=== PATIENT | male | born 1970 | race American Indian/Alaskan Native ===

== ENCOUNTER 2018-05-04 10:57 | Inpatient (IN) | payer OTHER ==
[2018-05-04] MEDS ORDERED: NACL 0.9% 1000 ML 1,000 ML IV ONE ×2 (11:20→11:59)
[2018-05-04] MEDS ORDERED: PROTONIX IV ONE (11:59)
[2018-05-04] MEDS ORDERED: ZOFRAN IV ONE (11:59)
[2018-05-04] MEDS ORDERED: MORPHINE IV ONE (11:59)
[2018-05-04] MEDS ORDERED: ATIVAN IV ONE (11:59)
[2018-05-04 12:10] LABS: Basophils # (Auto) 0.1 K/mm3 (0.0-0.1); Basophils % (Auto) 0.9 % (0.0-1.8); Eosinophils # (Auto) 0.1 K/mm3 (0.0-0.4); Eosinophils % (Auto) 1.4 % (0.0-4.3); Hematocrit 46.7 % (35.5-45.6); Hemoglobin 15.5 gm/dl (11.8-15.2); Lymphocytes # (Auto) 1.4 K/mm3 (1.2-5.4); Lymphocytes % (Auto) 14.2 % (13.4-35.0); Mean Corpuscular HGB Conc 33 % (32-34); Mean Corpuscular Hemoglobin 30 pg (28-32); Mean Corpuscular Volume 89 fl (84-94); Monocytes # (Auto) 1.3 K/mm3 (0.0-0.8); Monocytes % (Auto) 12.4 % (0.0-7.3); Platelet Count 269 K/mm3 (140-440); Red Blood Count 5.24 M/mm3 (3.65-5.03); Red Cell Distribution Width 13.9 % (13.2-15.2)
[2018-05-04 12:21] LABS: INR 1.02 (0.87-1.13)
[2018-05-04 12:22] LABS: Partial Thromboplastin Time 29.9 Sec. (24.2-36.6)
[2018-05-04 12:24] LABS: Creatine Kinase MB 2.8 ng/mL (0.0-4.0)
[2018-05-04 12:26] LABS: Alanine Aminotransferase 15 units/L (7-56); Albumin 3.8 g/dL (3.9-5); BUN/Creatinine Ratio 16; Blood Urea Nitrogen 14 mg/dL (9-20); Calcium 9.8 mg/dL (8.4-10.2); Hemolysis Index 18; Lipase 13 units/L (13-60)
[2018-05-04 12:29] LABS: Bacteria,Urine 1+ /HPF (Negative); Bilirubin,Urine NEG (Negative); Blood,Urine NEG (Negative); Color,Urine Yellow (Yellow); Mucus,Urine 1+ /HPF; Protein,Urine <15 mg/dL mg/dL (Negative); Urobilinogen,Urine < 2.0 mg/dL (<2.0)
[2018-05-04 12:43] LABS: Amphetamine Screen,Urine PRESUMPTIVE NEGATIVE; Benzodiazepines Screen,Urine PRESUMPTIVE NEGATIVE; Cocaine Screen,Urine PRESUMPTIVE NEGATIVE; Methadone Screen,Urine PRESUMPTIVE NEGATIVE; Opiate Screen,Urine PRESUMPTIVE NEGATIVE
--- NOTE | 2018-05-04 12:48 | XRay Report ---
PORTABLE CHEST INDICATION: Chest pain. COMPARISON: None similar. FINDINGS: Portable, frontal chest radiograph demonstrates normal cardiomediastinal silhouette. Mild prominence/increased interstitial markings through both lungs. Minimal fluid or thickening along the right minor fissure. No large pleural effusions however. Intact bones. CONCLUSION: Diffuse increased interstitial markings/pneumonia may represent chronic interstitial lung disease in an appropriate setting, though other possibilities as congestion/edema not entirely excluded on this exam alone. Please also correlate clinically and with prior relevant imaging, if available. Thank you for the opportunity to participate in this patient's care.
[2018-05-04 13:02] LABS: Cannabinoid Screen,Urine PRESUMPTIVE POSITIVE
--- NOTE | 2018-05-04 13:36 | Emergency Department Report ---
ED General Adult HPI - General Chief complaint: Pain General Stated complaint: CP/ABD/BACK/HEAD PAIN Time Seen by Provider: 05/04/18 11:39 Source: patient Mode of arrival: Ambulatory Limitations: No Limitations - History of Present Illness Initial comments: 48-year-old malepPatient complains of intermittent chest pain which radiates to the back and abdomen for the past 2 days. The pain is nonpleuritic and nonexertional. The patient states that he has never had a prior workup for chest pain. He has had a previous CT of his abdomen in 2014 which was unremarkable at this facility. He does not complain of cough. He's had no recent traveling. He isn't and frequent utilizer of medical resources. He states that there is a history of blood clots in his family but not apparently premature coronary artery disease. He denies cocaine use. He does smoke. He described the pain as severe and is somewhat anxious. -: Gradual, days(s) Location: chest Radiation: back, abdomen Severity scale (0 -10): 10 Quality: aching (could not describe) Consistency: intermittent Improves with: none Worsens with: none Associated Symptoms: denies other symptoms Treatments Prior to Arrival: none - Related Data Previous Rx's Medication Instructions Recorded Last Taken Type Amoxicillin [Trimox CAP] 500 mg PO Q8H #30 capsule 04/24/15 Unknown Rx HYDROcodone/APAP 10-325 [[place] 1 each PO Q4-6H PRN #16 tablet 04/24/15 Unknown Rx 10/325] Promethazine [Phenergan] 25 mg PO Q6H PRN #10 tablet 04/24/15 Unknown Rx Butalb/Acetamin/Caff 50-325-40 1 tab PO Q6HR PRN #15 tab 05/21/16 Unknown Rx [Fioricet] LORazepam [Ativan] 1 mg PO BID PRN #10 tab 05/21/16 Unknown Rx Allergies Allergy/AdvReac Type Severity Reaction Status Date / Time ibuprofen Allergy Vomiting Verified 04/24/15 10:14 ED Review of Systems ROS: Stated complaint: CP/ABD/BACK/HEAD PAIN Other details as noted in HPI Constitutional: denies: chills, fever Eyes: denies: eye pain, eye discharge, vision change ENT: denies: ear pain, throat pain Respiratory: denies: cough, shortness of breath, wheezing Cardiovascular: as per HPI, chest pain. denies: palpitations Endocrine: no symptoms reported Gastrointestinal: as per HPI, abdominal pain. denies: nausea, diarrhea Genitourinary: denies: urgency, dysuria Musculoskeletal: denies: back pain, joint swelling, arthralgia Skin: denies: rash, lesions Neurological: denies: headache, weakness, paresthesias Psychiatric: denies: anxiety, depression Hematological/Lymphatic: denies: easy bleeding, easy bruising ED Past Medical Hx - Past Medical History Previous Medical History?: Yes Additional medical history: stomach ulcers - Surgical History Past Surgical History?: Yes Additional Surgical History: Operative procedure for bleeding ulcer - Social History Smoking Status: Current Every Day Smoker Substance Use Type: Marijuana - Medications Home Medications: Home Medications Medication Instructions Recorded Confirmed Last Taken Type Amoxicillin [Trimox CAP] 500 mg PO Q8H #30 capsule 04/24/15 Unknown Rx HYDROcodone/APAP 10-325 [[place] 1 each PO Q4-6H PRN #16 tablet 04/24/15 Unknown Rx 10/325] Promethazine [Phenergan] 25 mg PO Q6H PRN #10 tablet 04/24/15 Unknown Rx Butalb/Acetamin/Caff 50-325-40 1 tab PO Q6HR PRN #15 tab 05/21/16 Unknown Rx [Fioricet] LORazepam [Ativan] 1 mg PO BID PRN #10 tab 05/21/16 Unknown Rx ED Physical Exam - General Limitations: No Limitations General appearance: alert, anxious - Head Head exam: Present: atraumatic, normocephalic - Eye Eye exam: Present: normal appearance. Absent: scleral icterus - ENT ENT exam: Present: mucous membranes moist - Neck Neck exam: Present: normal inspection. Absent: tenderness, meningismus - Respiratory Respiratory exam: Present: normal lung sounds bilaterally. Absent: respiratory distress - Cardiovascular Cardiovascular Exam: Present: regular rate, normal rhythm. Absent: systolic murmur, diastolic murmur, rubs, gallop - GI/Abdominal GI/Abdominal exam: Present: soft, normal bowel sounds, other (above the umbilicus celiotomy scar). Absent: distended, tenderness, guarding, rebound, rigid - Rectal Rectal exam: Present: deferred - Extremities Exam Extremities exam: Present: normal inspection - Back Exam Back exam: Present: normal inspection - Neurological Exam Neurological exam: Present: alert, oriented X3, CN II-XII intact. Absent: motor sensory deficit - Psychiatric Psychiatric exam: Present: normal affect, anxious - Skin Skin exam: Present: warm, dry, intact, normal color. Absent: rash ED Course Vital Signs 05/04/18 11:16 Temperature 97.5 F L Pulse Rate 58 L Respiratory 22 Rate Blood Pressure 135/88 O2 Sat by Pulse 97 Oximetry - Reevaluation(s) Reevaluation #1: Patient was given analgesia and [place] lytic. He was noted to have very elevated d-dimer. I asked the radiologist to look at his angiogram right away. Dr. Banks reported to me that the patient has diffuse adenopathy mediastinum and abdomen probably more consistent with lymphoma and sarcoid but the differential diagnosis included both. There is no dissection. Interstitial lung disease is present on chest x-ray as well. 05/04/18 13:59 ED Medical Decision Making - Lab Data Result diagrams: 05/04/18 11:31 05/04/18 11:31 Laboratory Results - last 24 hr 05/04/18 05/04/18 05/04/18 11:31 11:31 11:31 WBC 10.1 RBC 5.24 H Hgb 15.5 H Hct 46.7 H MCV 89 MCH 30 MCHC 33 RDW 13.9 Plt Count 269 Lymph % (Auto) 14.2 [place] % (Auto) 12.4 H Eos % (Auto) 1.4 Baso % (Auto) 0.9 Lymph # 1.4 [place] # 1.3 H Eos # 0.1 Baso # 0.1 Seg Neutrophils % 71.1 H Seg Neutrophils # 7.2 PT 13.9 INR 1.02 APTT 29.9 D-Dimer 5221.96 H Sodium 140 Potassium 4.0 Chloride 100.4 Carbon Dioxide 24 Anion Gap 20 BUN 14 Creatinine 0.9 Estimated GFR > 60 BUN/Creatinine Ratio 16 Glucose 101 H Calcium 9.8 Magnesium Total Bilirubin 0.40 AST 22 ALT 15 Alkaline Phosphatase 128 Total Creatine Kinase CK-MB (CK-2) CK-MB (CK-2) Rel Index Troponin T NT-Pro-B Natriuret Pep Total Protein 8.1 Albumin 3.8 L Albumin/Globulin Ratio 0.9 Lipase 13 Urine Color Urine Turbidity Urine pH Ur Specific [place] Urine Protein Urine Glucose (UA) Urine Ketones Urine Blood Urine Nitrite Urine Bilirubin Urine Urobilinogen Ur Leukocyte Esterase Urine WBC (Auto) Urine RBC (Auto) U Epithel Cells (Auto) Urine Bacteria (Auto) Urine Mucus Urine Opiates Screen Urine Methadone Screen Ur Barbiturates Screen Ur Phencyclidine Scrn Ur Amphetamines Screen U Benzodiazepines Scrn Urine Cocaine Screen U Marijuana (THC) Screen Drugs of Abuse Note Blood Type Antibody Screen 05/04/18 05/04/18 05/04/18 11:31 11:31 11:31 WBC RBC Hgb Hct MCV MCH MCHC RDW Plt Count Lymph % (Auto) [place] % (Auto) Eos % (Auto) Baso % (Auto) Lymph # [place] # Eos # Baso # Seg Neutrophils % Seg Neutrophils # PT INR APTT D-Dimer Sodium Potassium Chloride Carbon Dioxide Anion Gap BUN Creatinine Estimated GFR BUN/Creatinine Ratio Glucose Calcium Magnesium 2.20 Total Bilirubin AST ALT Alkaline Phosphatase Total Creatine Kinase 375 H CK-MB (CK-2) 2.8 CK-MB (CK-2) Rel Index 0.7 Troponin T < 0.010 NT-Pro-B Natriuret Pep 84.11 Total Protein Albumin Albumin/Globulin Ratio Lipase Urine Color Urine Turbidity Urine pH Ur Specific [place] Urine Protein Urine Glucose (UA) Urine Ketones Urine Blood Urine Nitrite Urine Bilirubin Urine Urobilinogen Ur Leukocyte Esterase Urine WBC (Auto) Urine RBC (Auto) U Epithel Cells (Auto) Urine Bacteria (Auto) Urine Mucus Urine Opiates Screen Urine Methadone Screen Ur Barbiturates Screen Ur Phencyclidine Scrn Ur Amphetamines Screen U Benzodiazepines Scrn Urine Cocaine Screen U Marijuana (THC) Screen Drugs of Abuse Note Blood Type O POSITIVE Antibody Screen Negative 05/04/18 05/04/18 Unknown Unknown WBC RBC Hgb Hct MCV MCH MCHC RDW Plt Count Lymph % (Auto) [place] % (Auto) Eos % (Auto) Baso % (Auto) Lymph # [place] # Eos # Baso # Seg Neutrophils % Seg Neutrophils # PT INR APTT D-Dimer Sodium Potassium Chloride Carbon Dioxide Anion Gap BUN Creatinine Estimated GFR BUN/Creatinine Ratio Glucose Calcium Magnesium Total Bilirubin AST ALT Alkaline Phosphatase Total Creatine Kinase CK-MB (CK-2) CK-MB (CK-2) Rel Index Troponin T NT-Pro-B Natriuret Pep Total Protein Albumin Albumin/Globulin Ratio Lipase Urine Color Yellow Urine Turbidity Clear Urine pH 5.0 Ur Specific [place] 1.026 Urine Protein <15 mg/dl Urine Glucose (UA) Neg Urine Ketones Tr Urine Blood Neg Urine Nitrite Neg Urine Bilirubin Neg Urine Urobilinogen < 2.0 Ur Leukocyte Esterase Neg Urine WBC (Auto) 3.0 Urine RBC (Auto) 3.0 U Epithel Cells (Auto) < 1.0 Urine Bacteria (Auto) 1+ Urine Mucus 1+ Urine Opiates Screen Presumptive negative Urine Methadone Screen Presumptive negative Ur Barbiturates Screen Presumptive negative Ur Phencyclidine Scrn Presumptive negative Ur Amphetamines Screen Presumptive negative U Benzodiazepines Scrn Presumptive negative Urine Cocaine Screen Presumptive negative U Marijuana (THC) Screen Presumptive positive Drugs of Abuse Note Disclamer Blood Type Antibody Screen Critical care attestation.: If time is entered above; I have spent that time in minutes in the direct care of this critically ill patient, excluding procedure time. ED Disposition Clinical Impression: Elevated d-dimer, Interstitial lung disease, Mediastinal lymphadenopathy, Intra -abdominal lymphadenopathy Chest pain Qualifiers: Chest pain type: unspecified Qualified Code(s): R07.9 - Chest pain, unspecified Abdominal pain Qualifiers: Abdominal location: unspecified location Qualified Code(s): R10.9 - Unspecified abdominal pain Disposition: OP ADMIT IP TO THIS HOSP Is pt being admited?: Yes Does the pt Need Aspirin: Yes Condition: Stable Instructions: Chest Pain (ED) Referrals: PRIMARY CAREMD [Primary Care Provider] - 3-5 Days Time of Disposition: 14:02
--- NOTE | 2018-05-04 14:18 | Cat Scan Report ---
CTA CHEST CTA ABDOMEN AND PELVIS WITH CONTRAST INDICATION: Chest pain radiating to back and abdomen. COMPARISON: 04/24/[address] FINDINGS: Chest, abdomen and pelvis CTA performed following IV contrast. Axial, sagittal, coronal and MIP reconstructions obtained. CHEST: Normal heart size. No pericardial effusion. Unremarkable great vessels, to the extent assessed. However, hilar lymphadenopathy noted measuring approximately 2 cm on either side as on axial images 55 and 72, series 2. Approximately 2.8 x 1.5 cm subcarinal lymph node also seen. A 1.9 x 1 cm AP window lymph node also noted, axial image 44. No size significant axillary lymphadenopathy. Patent central airway. Normal thyroid. Diffuse bilateral interstitial prominence suggestive of mild congestion. Bibasilar dependent atelectasis. Trace pleural effusions, more so on the left. Slight nonspecific distal esophageal prominence/thickening. ABDOMEN: No aortic dissection with patent SMA, MORIAH and bilateral renal arteries. Severe, approximately 80-90% stenosis of approximately 1 cm celiac length from its aortic origin suspected as on sagittal image 84, series 303, achieving a normal caliber further distally. Liver, spleen, gallbladder, pancreas, IVC and kidneys within normal limits. Slight diffuse bilateral adrenal gland prominence/hyperplasia not excluded. Nonopacified GI tract evaluation limited, though grossly nonobstructive. Cecum low lying in the pelvis, slightly dilated with fluid and approximately 3.5 cm in caliber, axial image 246, series 2. Proximal to mid ascending colon however in the right lower quadrant, axial images 180-115, series 2 though suggests diffuse soft tissue prominence/thickening/possible mass. Multiple enlarged adjacent lymph nodes measuring up to 1.8 x 1.4 cm also noted medial to it as on axial image 193, series 2. Stool however noted further beyond this segment along the colon. Few retroperitoneal lymph nodes also seen as measuring 1.5 cm retrocaval, axial image 163 as also 1.6 x 0.9 cm left paraaortic on axial image 169, amongst others. No ascites. PELVIS: A suboptimally distended urinary bladder, prostate, seminal vesicles and the rectosigmoid grossly within normal limits. No significant free fluid or adenopathy suspected. L5-S1 disc narrowing and mild degenerative spurring noted. L4-L5 disc bulge again seen. Mild lower cervical spine degenerative spurring as well. CONCLUSION: 1. Intrathoracic and abdominal/retroperitoneal lymphadenopathy noted in this patient with mild interstitial edema, trace left pleural effusion and a possible ascending colon mass, as described above. Lymphoma remains a primary consideration in this setting, amongst others as sarcoidosis that may mimic many of the above findings. Please correlate. 2. No aortic dissection. Proximal celiac axis high-grade stenosis though suspected. 3. Few other findings, as above. Thank you for the opportunity to participate in this patient's care.
[2018-05-04] MEDS: MORPHINE IV PRN (17:25)
--- NOTE | 2018-05-04 17:47 | History and Physical Report ---
History of Present Illness Date of examination: 05/04/18 Date of admission: 05/04/18 14:03 Chief complaint: Chief complaint: Left-sided chest pain for 1 day--intermittent in nature History of present illness: History of Present Illness: 48-year-old -[place] male presents with chest pain radiating to the back for past 2 days. Patient also has intermittent abdominal pain. Chest pain associated with slight diaphoresis. No palpitations no shortness of breath. No recent travel. Patient had a CT of the abdomen in 2014 which was unremarkable. No recent travel. No shortness of breath on exertion. No fever no chills. No weight loss. Past Medical History: Previous Medical History?: Yes Additional medical history: stomach ulcers Surgical History Past Surgical History?: Yes Additional Surgical History: Operative procedure for bleeding ulcer Social History Smoking Status: Current Every Day Smoker Substance Use Type: Marijuana Family history Htn Medications Home Medications: Home Medications Medication Instructions Recorded Confirmed Last Taken Type Amoxicillin [Trimox CAP] 500 mg PO Q8H #30 capsule 04/24/15 Unknown Rx HYDROcodone/APAP 10-325 [[place] 1 each PO Q4-6H PRN #16 tablet 04/24/15 Unknown Rx 10/325] Promethazine [Phenergan] 25 mg PO Q6H PRN #10 tablet 04/24/15 Unknown Rx Butalb/Acetamin/Caff 50-325-40 1 tab PO Q6HR PRN #15 tab 05/21/16 Unknown Rx [Fioricet] LORazepam [Ativan] 1 mg PO BID PRN #10 tab 05/21/16 Unknown Rx Review of Systems ROS: Stated complaint: CP/ABD/BACK/HEAD PAIN Other details as noted in HPI Constitutional: denies: chills, fever Eyes: denies: eye pain, eye discharge, vision change ENT: denies: ear pain, throat pain Respiratory: denies: cough, shortness of breath, wheezing Cardiovascular: as per HPI, chest pain. denies: palpitations Endocrine: no symptoms reported Gastrointestinal: as per HPI, abdominal pain. denies: nausea, diarrhea Genitourinary: denies: urgency, dysuria Musculoskeletal: denies: back pain, joint swelling, arthralgia Skin: denies: rash, lesions Neurological: denies: headache, weakness, paresthesias Psychiatric: denies: anxiety, depression Hematological/Lymphatic: denies: easy bleeding, easy bruising Medications and Allergies Allergies Allergy/AdvReac Type Severity Reaction Status Date / Time ibuprofen Allergy Vomiting Verified 04/24/15 10:14 Home Medications Medication Instructions Recorded Confirmed Last Taken Type No Known Home Medications [No 05/04/18 05/04/18 Unknown History Reported Home Medications] Active Meds: Active Medications Sodium Chloride (Nacl 0.9% 1000 Ml) 1,000 mls @ 125 mls/hr IV ONCE ONE Stop: 05/04/18 19:58 Last Admin: 05/04/18 12:24 Dose: 125 mls/hr Morphine Sulfate (Morphine) 2 mg IV Q3H PRN PRN Reason: Pain Last Admin: 05/04/18 17:25 Dose: 2 mg Exam - Constitutional Vitals: Temp Pulse Resp BP Pulse Ox 97.5 F L 103 H 20 109/79 96 05/04/18 11:16 05/04/18 17:00 05/04/18 17:00 05/04/18 17:00 05/04/18 16:52 General appearance: Present: no acute distress, well-nourished - EENT Eyes: Present: PERRL ENT: hearing intact, clear oral mucosa - Neck Neck: Present: supple, normal ROM - Respiratory Respiratory effort: normal Respiratory: bilateral: CTA - Cardiovascular Heart rate: 76 Rhythm: regular Heart Sounds: Present: S1 & S2. Absent: rub, click - Extremities Extremities: pulses symmetrical, No edema Peripheral Pulses: within normal limits - Abdominal General gastrointestinal: Present: soft, non-tender, non-distended, normal bowel sounds Male genitourinary: Present: normal - Integumentary Integumentary: Present: clear, warm, dry - Musculoskeletal Musculoskeletal: gait normal, strength equal bilaterally - Psychiatric Psychiatric: appropriate mood/affect, intact judgment & insight - Neurologic Neurologic: CNII-XII intact, moves all extremities - Allied Health Allied health notes reviewed: nursing, case management Results - Labs CBC & Chem 7: 05/04/18 11:31 05/04/18 11:31 Labs: Laboratory Last Values WBC 10.1 K/mm3 (4.5-11.0) 05/04/18 11:31 RBC 5.24 M/mm3 (3.65-5.03) H 05/04/18 11:31 Hgb 15.5 gm/dl (11.8-15.2) H 05/04/18 11:31 Hct 46.7 % (35.5-45.6) H 05/04/18 11:31 MCV 89 fl (84-94) 05/04/18 11:31 MCH 30 pg (28-32) 05/04/18 11:31 MCHC 33 % (32-34) 05/04/18 11:31 RDW 13.9 % (13.2-15.2) 05/04/18 11:31 Plt Count 269 K/mm3 (140-440) 05/04/18 11:31 Lymph % (Auto) 14.2 % (13.4-35.0) 05/04/18 11:31 [place] % (Auto) 12.4 % (0.0-7.3) H 05/04/18 11:31 Eos % (Auto) 1.4 % (0.0-4.3) 05/04/18 11:31 Baso % (Auto) 0.9 % (0.0-1.8) 05/04/18 11:31 Lymph # 1.4 K/mm3 (1.2-5.4) 05/04/18 11:31 [place] # 1.3 K/mm3 (0.0-0.8) H 05/04/18 11:31 Eos # 0.1 K/mm3 (0.0-0.4) 05/04/18 11:31 Baso # 0.1 K/mm3 (0.0-0.1) 05/04/18 11:31 Seg Neutrophils % 71.1 % (40.0-70.0) H 05/04/18 11:31 Seg Neutrophils # 7.2 K/mm3 (1.8-7.7) 05/04/18 11:31 PT 13.9 Sec. (12.2-14.9) 05/04/18 11:31 INR 1.02 (0.87-1.13) 05/04/18 11:31 APTT 29.9 Sec. (24.2-36.6) 05/04/18 11:31 D-Dimer 5221.96 ng/mlDDU (0-234) H 05/04/18 11:31 Sodium 140 mmol/L (137-145) 05/04/18 11:31 Potassium 4.0 mmol/L (3.6-5.0) 05/04/18 11:31 Chloride 100.4 mmol/L (98-107) 05/04/18 11:31 Carbon Dioxide 24 mmol/L (22-30) 05/04/18 11:31 Anion Gap 20 mmol/L 05/04/18 11:31 BUN 14 mg/dL (9-20) 05/04/18 11:31 Creatinine 0.9 mg/dL (0.8-1.5) 05/04/18 11:31 Estimated GFR > 60 ml/min 05/04/18 11:31 BUN/Creatinine Ratio 16 % 05/04/18 11:31 Glucose 101 mg/dL (75-100) H 05/04/18 11:31 Calcium 9.8 mg/dL (8.4-10.2) 05/04/18 11:31 Magnesium 2.20 mg/dL (1.7-2.3) 05/04/18 11:31 Total Bilirubin 0.40 mg/dL (0.1-1.2) 05/04/18 11:31 AST 22 units/L (5-40) 05/04/18 11:31 ALT 15 units/L (7-56) 05/04/18 11:31 Alkaline Phosphatase 128 units/L (35-129) 05/04/18 11:31 Total Creatine Kinase 375 units/L (55-170) H 05/04/18 11:31 CK-MB (CK-2) 2.8 ng/mL (0.0-4.0) 05/04/18 11:31 CK-MB (CK-2) Rel Index 0.7 (0-4) 05/04/18 11:31 Troponin T < 0.010 ng/mL (0.00-0.029) 05/04/18 11:31 NT-Pro-B Natriuret Pep 84.11 pg/mL (0-450) 05/04/18 11:31 Total Protein 8.1 g/dL (6.3-8.2) 05/04/18 11:31 Albumin 3.8 g/dL (3.9-5) L 05/04/18 11:31 Albumin/Globulin Ratio 0.9 % 05/04/18 11:31 Lipase 13 units/L (13-60) 05/04/18 11:31 Urine Color Yellow (Yellow) 05/04/18 Unknown Urine Turbidity Clear (Clear) 05/04/18 Unknown Urine pH 5.0 (5.0-7.0) 05/04/18 Unknown Ur Specific [place] 1.026 (1.003-1.030) 05/04/18 Unknown Urine Protein <15 mg/dl mg/dL (Negative) 05/04/18 Unknown Urine Glucose (UA) Neg mg/dL (Negative) 05/04/18 Unknown Urine Ketones Tr mg/dL (Negative) 05/04/18 Unknown Urine Blood Neg (Negative) 05/04/18 Unknown Urine Nitrite Neg (Negative) 05/04/18 Unknown Urine Bilirubin Neg (Negative) 05/04/18 Unknown Urine Urobilinogen < 2.0 mg/dL (<2.0) 05/04/18 Unknown Ur Leukocyte Esterase Neg (Negative) 05/04/18 Unknown Urine WBC (Auto) 3.0 /HPF (0.0-6.0) 05/04/18 Unknown Urine RBC (Auto) 3.0 /HPF (0.0-6.0) 05/04/18 Unknown U Epithel Cells (Auto) < 1.0 /HPF (0-13.0) 05/04/18 Unknown Urine Bacteria (Auto) 1+ /HPF (Negative) 05/04/18 Unknown Urine Mucus 1+ /HPF 05/04/18 Unknown Urine Opiates Screen Presumptive negative 05/04/18 Unknown Urine Methadone Screen Presumptive negative 05/04/18 Unknown Ur Barbiturates Screen Presumptive negative 05/04/18 Unknown Ur Phencyclidine Scrn Presumptive negative 05/04/18 Unknown Ur Amphetamines Screen Presumptive negative 05/04/18 Unknown U Benzodiazepines Scrn Presumptive negative 05/04/18 Unknown Urine Cocaine Screen Presumptive negative 05/04/18 Unknown U Marijuana (THC) Screen Presumptive positive 05/04/18 Unknown Drugs of Abuse Note Disclamer 05/04/18 Unknown Blood Type O POSITIVE 05/04/18 11:31 Antibody Screen Negative 05/04/18 11:31 - Imaging and Cardiology EKG: report reviewed (Sinus arrhythmia left atrial enlargement and left ventricular enlargement ST elevation secondary to repolarization heart rate of 82.) CT scan - abdomen: report reviewed Imaging and Cardiology: CT abdomen from 04/24/[address] abdomen and pelvis on 05/04/2018 CONCLUSION: 1. Intrathoracic and abdominal/retroperitoneal lymphadenopathy noted in this patient with mild interstitial edema, trace left pleural effusion and a possible ascending colon mass, as described above. Lymphoma remains a primary consideration in this setting, amongst others as sarcoidosis that may mimic many of the above findings. Please correlate. 2. No aortic dissection. Proximal celiac axis high-grade stenosis though suspected. 3. Few other findings, as above. Thank you for the opportunity to participate in this patient's care. CTA chest Similar findings as above Chest x-ray CONCLUSION: Diffuse increased interstitial markings/pneumonia may represent chronic interstitial lung disease in an appropriate setting, though other possibilities as congestion/edema not entirely excluded on this exam alone. Please also correlate clinically and with prior relevant imaging, if available. Assessment and Plan Advance Directives: Yes (full code) VTE prophylaxis?: Chemical Plan of care discussed with patient/family: Yes - Patient Problems (1) Lymphoma Current Visit: Yes Status: Acute Qualifiers: Lymphoma type: unspecified type Plan to address problem: Highly likely. He may need CT-guided biopsy Oncology consult requested Sarcoidosis in the differential Angiotensin-converting enzyme levels ordered (2) Chest pain Current Visit: Yes Status: Acute Qualifiers: Chest pain type: unspecified Qualified Code(s): R07.9 - Chest pain, unspecified Plan to address problem: Lexiscan in the morning Serial cardiac enzymes (3) T2DM (type 2 diabetes mellitus) Current Visit: Yes Status: Chronic Plan to address problem: borderline No coverage at this point A1c 6.1 (4) DVT prophylaxis Current Visit: Yes Status: Acute Plan to address problem: Heparin 5000 units subcutaneous every 12
[2018-05-04] MEDS ORDERED: NACL 0.9% 1000 ML 1,000 ML IV SCH (18:00)
[2018-05-04] MEDS: DILAUDID IV PRN ×2 (19:49→23:44)
[2018-05-04] MEDS: SODIUM CHLORIDE FLUSH SYRINGE 10 ML IV SCH (23:44)
[2018-05-04] MEDS: LEVAQUIN 750MG/150ML 750 MG/150 ML BAG IV SCH (23:46)
[2018-05-05] MEDS: DILAUDID IV PRN ×6 (04:23→23:23)
[2018-05-05 07:08] LABS: Hematocrit 41.4 % (35.5-45.6); Hemoglobin 13.5 gm/dl (11.8-15.2); Mean Corpuscular HGB Conc 33 % (32-34); Mean Corpuscular Hemoglobin 29 pg (28-32); Mean Corpuscular Volume 89 fl (84-94); Platelet Count 233 K/mm3 (140-440); Red Blood Count 4.63 M/mm3 (3.65-5.03); Red Cell Distribution Width 13.9 % (13.2-15.2)
[2018-05-05 07:16] LABS: Alanine Aminotransferase 11 units/L (7-56); Albumin 3.2 g/dL (3.9-5); BUN/Creatinine Ratio 13; Blood Urea Nitrogen 12 mg/dL (9-20); Hemolysis Index 7
[2018-05-05 08:37] LABS: Basophils % (Manual) 0 % (0.0-1.8); RBC Morphology Normal; Total Cells Counted 100
[2018-05-05 08:38] LABS: Platelet Estimate Consistent w Auto
--- NOTE | 2018-05-05 08:57 | Progress Note ---
Assessment and Plan Assessment and plan: Abdominal Lymphadenopathy. To r/o lymphoma. Oncology consulted Colon mass. GI consulted. For colonoscopy tomorrow. History of gastric ulcer DVT prophylaxis with SCDs only. Full code status History Interval history: Chest pain Abdominal pain Hospitalist Physical - Physical exam Narrative exam: General: Not in acute distress, lying in bed,obese HEENT:Normocephalic, atraumatic Neck:supple,no JVD Lungs: Clear to auscultation bilaterally, no crackles, no wheeze Heart:S1 and S2 regular, no murmurs, rubs or gallop Abd: soft, tender, non distended, normal bowel sounds Ext: No edema, no clubbing, no cyanosis Neuro: AAO x 3, moves all extremities. - Constitutional Vitals: Temp Pulse Resp BP Pulse Ox 99.0 F 115 H 20 136/88 94 05/04/18 23:39 05/04/18 23:39 05/05/18 04:23 05/04/18 23:39 05/04/18 23:39 General appearance: Present: no acute distress, well-nourished Results - Labs CBC & Chem 7: 05/05/18 06:32 05/05/18 06:32 Labs: Laboratory Last Values WBC 7.9 K/mm3 (4.5-11.0) 05/05/18 06:32 RBC 4.63 M/mm3 (3.65-5.03) 05/05/18 06:32 Hgb 13.5 gm/dl (11.8-15.2) 05/05/18 06:32 Hct 41.4 % (35.5-45.6) 05/05/18 06:32 MCV 89 fl (84-94) 05/05/18 06:32 MCH 29 pg (28-32) 05/05/18 06:32 MCHC 33 % (32-34) 05/05/18 06:32 RDW 13.9 % (13.2-15.2) 05/05/18 06:32 Plt Count 233 K/mm3 (140-440) 05/05/18 06:32 Lymph % (Auto) 14.2 % (13.4-35.0) 05/04/18 11:31 Elliott % (Auto) [employer] Manager 05/05/18 06:32 Eos % (Auto) 1.4 % (0.0-4.3) 05/04/18 11:31 Baso % (Auto) 0.9 % (0.0-1.8) 05/04/18 11:31 Lymph # 1.4 K/mm3 (1.2-5.4) 05/04/18 11:31 Elliott # 1.3 K/mm3 (0.0-0.8) H 05/04/18 11:31 Eos # 0.1 K/mm3 (0.0-0.4) 05/04/18 11:31 Baso # 0.1 K/mm3 (0.0-0.1) 05/04/18 11:31 Add Manual Diff Complete 05/05/18 06:32 Total Counted 100 05/05/18 06:32 Seg Neutrophils % 71.1 % (40.0-70.0) H 05/04/18 11:31 Seg Neuts % (Manual) 66.0 % (40.0-70.0) 05/05/18 06:32 Band Neutrophils % 0 % 05/05/18 06:32 Lymphocytes % (Manual) 15.0 % (13.4-35.0) 05/05/18 06:32 Reactive Lymphs % (Man) 0 % 05/05/18 06:32 Monocytes % (Manual) 17.0 % (0.0-7.3) H 05/05/18 06:32 Eosinophils % (Manual) 2.0 % (0.0-4.3) 05/05/18 06:32 Basophils % (Manual) 0 % (0.0-1.8) 05/05/18 06:32 Metamyelocytes % 0 % 05/05/18 06:32 Myelocytes % 0 % 05/05/18 06:32 Promyelocytes % 0 % 05/05/18 06:32 Blast Cells % 0 % 05/05/18 06:32 Nucleated RBC % Not Reportable 05/05/18 06:32 Seg Neutrophils # 7.2 K/mm3 (1.8-7.7) 05/04/18 11:31 Seg Neutrophils # Man 5.2 K/mm3 (1.8-7.7) 05/05/18 06:32 Band Neutrophils # 0.0 K/mm3 05/05/18 06:32 Lymphocytes # (Manual) 1.2 K/mm3 (1.2-5.4) 05/05/18 06:32 Abs React Lymphs (Man) 0.0 K/mm3 05/05/18 06:32 Monocytes # (Manual) 1.3 K/mm3 (0.0-0.8) H 05/05/18 06:32 Eosinophils # (Manual) 0.2 K/mm3 (0.0-0.4) 05/05/18 06:32 Basophils # (Manual) 0.0 K/mm3 (0.0-0.1) 05/05/18 06:32 Metamyelocytes # 0.0 K/mm3 05/05/18 06:32 Myelocytes # 0.0 K/mm3 05/05/18 06:32 Promyelocytes # 0.0 K/mm3 05/05/18 06:32 Blast Cells # 0.0 K/mm3 05/05/18 06:32 WBC Morphology Not Reportable 05/05/18 06:32 Hypersegmented Neuts Not Reportable 05/05/18 06:32 Hyposegmented Neuts Not Reportable 05/05/18 06:32 Hypogranular Neuts Not Reportable 05/05/18 06:32 Smudge Cells Not Reportable 05/05/18 06:32 Toxic Granulation Not Reportable 05/05/18 06:32 Toxic Vacuolation Not Reportable 05/05/18 06:32 Dohle Bodies Not Reportable 05/05/18 06:32 Pelger-Huet Anomaly Not Reportable 05/05/18 06:32 Hayde Rods Not Reportable 05/05/18 06:32 Platelet Estimate Consistent w auto 05/05/18 06:32 Clumped Platelets Not Reportable 05/05/18 06:32 Plt Clumps, EDTA Not Reportable 05/05/18 06:32 Large Platelets Not Reportable 05/05/18 06:32 Giant Platelets Not Reportable 05/05/18 06:32 Platelet Satelliting Not Reportable 05/05/18 06:32 Plt Morphology Comment Not Reportable 05/05/18 06:32 RBC Morphology Normal 05/05/18 06:32 Dimorphic RBCs Not Reportable 05/05/18 06:32 Polychromasia Not Reportable 05/05/18 06:32 Hypochromasia Not Reportable 05/05/18 06:32 Poikilocytosis Not Reportable 05/05/18 06:32 Anisocytosis Not Reportable 05/05/18 06:32 Microcytosis Not Reportable 05/05/18 06:32 Macrocytosis Not Reportable 05/05/18 06:32 Spherocytes Not Reportable 05/05/18 06:32 Pappenheimer Bodies Not Reportable 05/05/18 06:32 Sickle Cells Not Reportable 05/05/18 06:32 Target Cells Not Reportable 05/05/18 06:32 Tear Drop Cells Not Reportable 05/05/18 06:32 Ovalocytes Not Reportable 05/05/18 06:32 Helmet Cells Not Reportable 05/05/18 06:32 [place] Bodies Not Reportable 05/05/18 06:32 [place] Rings Not Reportable 05/05/18 06:32 [place] Cells Not Reportable 05/05/18 06:32 Bite Cells Not Reportable 05/05/18 06:32 Crenated Cell Not Reportable 05/05/18 06:32 Elliptocytes Not Reportable 05/05/18 06:32 Acanthocytes (Spur) Not Reportable 05/05/18 06:32 Rouleaux Not Reportable 05/05/18 06:32 Hemoglobin C Crystals Not Reportable 05/05/18 06:32 Schistocytes Not Reportable 05/05/18 06:32 Malaria parasites Not Reportable 05/05/18 06:32 Reilly Bodies Not Reportable 05/05/18 06:32 Hem Pathologist Commnt No 05/05/18 06:32 PT 13.9 Sec. (12.2-14.9) 05/04/18 11:31 INR 1.02 (0.87-1.13) 05/04/18 11:31 APTT 29.9 Sec. (24.2-36.6) 05/04/18 11:31 D-Dimer 5221.96 ng/mlDDU (0-234) H 05/04/18 11:31 Sodium 139 mmol/L (137-145) 05/05/18 06:32 Potassium 4.2 mmol/L (3.6-5.0) 05/05/18 06:32 Chloride 101.6 mmol/L (98-107) 05/05/18 06:32 Carbon Dioxide 23 mmol/L (22-30) 05/05/18 06:32 Anion Gap 19 mmol/L 05/05/18 06:32 BUN 12 mg/dL (9-20) 05/05/18 06:32 Creatinine 0.9 mg/dL (0.8-1.5) 05/05/18 06:32 Estimated GFR > 60 ml/min 05/05/18 06:32 BUN/Creatinine Ratio 13 % 05/05/18 06:32 Glucose 94 mg/dL (75-100) 05/05/18 06:32 Hemoglobin A1c 6.1 % (4-6) H 05/04/18 18:02 Calcium 9.0 mg/dL (8.4-10.2) 05/05/18 06:32 Magnesium 2.20 mg/dL (1.7-2.3) 05/04/18 11:31 Total Bilirubin 0.30 mg/dL (0.1-1.2) 05/05/18 06:32 AST 18 units/L (5-40) 05/05/18 06:32 ALT 11 units/L (7-56) 05/05/18 06:32 Alkaline Phosphatase 123 units/L (35-129) 05/05/18 06:32 Total Creatine Kinase 375 units/L (55-170) H 05/04/18 11:31 CK-MB (CK-2) 2.8 ng/mL (0.0-4.0) 05/04/18 11:31 CK-MB (CK-2) Rel Index 0.7 (0-4) 05/04/18 11:31 Troponin T < 0.010 ng/mL (0.00-0.029) 05/05/18 06:32 NT-Pro-B Natriuret Pep 84.11 pg/mL (0-450) 05/04/18 11:31 Total Protein 6.6 g/dL (6.3-8.2) 05/05/18 06:32 Albumin 3.2 g/dL (3.9-5) L 05/05/18 06:32 Albumin/Globulin Ratio 0.9 % 05/05/18 06:32 Lipase 13 units/L (13-60) 05/04/18 11:31 Urine Color Yellow (Yellow) 05/04/18 Unknown Urine Turbidity Clear (Clear) 05/04/18 Unknown Urine pH 5.0 (5.0-7.0) 05/04/18 Unknown Ur Specific [place] 1.026 (1.003-1.030) 05/04/18 Unknown Urine Protein <15 mg/dl mg/dL (Negative) 05/04/18 Unknown Urine Glucose (UA) Neg mg/dL (Negative) 05/04/18 Unknown Urine Ketones Tr mg/dL (Negative) 05/04/18 Unknown Urine Blood Neg (Negative) 05/04/18 Unknown Urine Nitrite Neg (Negative) 05/04/18 Unknown Urine Bilirubin Neg (Negative) 05/04/18 Unknown Urine Urobilinogen < 2.0 mg/dL (<2.0) 05/04/18 Unknown Ur Leukocyte Esterase Neg (Negative) 05/04/18 Unknown Urine WBC (Auto) 3.0 /HPF (0.0-6.0) 05/04/18 Unknown Urine RBC (Auto) 3.0 /HPF (0.0-6.0) 05/04/18 Unknown U Epithel Cells (Auto) < 1.0 /HPF (0-13.0) 05/04/18 Unknown Urine Bacteria (Auto) 1+ /HPF (Negative) 05/04/18 Unknown Urine Mucus 1+ /HPF 05/04/18 Unknown Urine Opiates Screen Presumptive negative 05/04/18 Unknown Urine Methadone Screen Presumptive negative 05/04/18 Unknown Ur Barbiturates Screen Presumptive negative 05/04/18 Unknown Ur Phencyclidine Scrn Presumptive negative 05/04/18 Unknown Ur Amphetamines Screen Presumptive negative 05/04/18 Unknown U Benzodiazepines Scrn Presumptive negative 05/04/18 Unknown Urine Cocaine Screen Presumptive negative 05/04/18 Unknown U Marijuana (THC) Screen Presumptive positive 05/04/18 Unknown Drugs of Abuse Note Disclamer 05/04/18 Unknown Blood Type O POSITIVE 05/04/18 11:31 Antibody Screen Negative 05/04/18 11:31
[2018-05-05] MEDS ORDERED: LEXISCAN IV ONE ×2 (10:38→10:40)
--- NOTE | 2018-05-05 11:58 | Hem/Onc Consultation ---
History of Present Illness - Reason for Consult Consult date: 05/05/18 - History of Present Illness Consult dictated. CT scan reviewed with the pathologist. Patient has a colon mass. I have consult did GI Dr. [place]. CEA ordered Medications and Allergies Allergies Allergy/AdvReac Type Severity Reaction Status Date / Time ibuprofen Allergy Vomiting Verified 04/24/15 10:14 Home Medications Medication Instructions Recorded Confirmed Last Taken Type No Known Home Medications [No 05/04/18 05/04/18 Unknown History Reported Home Medications] Active Meds: Active Medications Acetaminophen (Tylenol) 650 mg PO Q4H PRN PRN Reason: Pain MILD(1-3)/Fever >100.5/CHOUDHURY Hydromorphone HCl (Dilaudid) 1 mg IV Q3H PRN PRN Reason: Pain , Severe (7-10) Last Admin: 05/05/18 08:15 Dose: 1 mg Levofloxacin/Dextrose (Levaquin 750mg/150ml) 750 mg in 150 mls @ 100 mls/hr IV Q24HR KAYODE; Protocol Last Admin: 05/04/18 23:46 Dose: 100 mls/hr Morphine Sulfate (Morphine) 2 mg IV Q3H PRN PRN Reason: Pain, severe Last Admin: 05/04/18 17:25 Dose: 2 mg Ondansetron HCl (Zofran) 4 mg IV Q8H PRN PRN Reason: Nausea And Vomiting Oxycodone/Acetaminophen (Percocet 5/325) 1 tab PO Q6H PRN PRN Reason: Pain, Moderate (4-6) Sodium Chloride (Sodium Chloride Flush Syringe 10 Ml) 10 ml IV BID KAYODE Last Admin: 05/04/18 23:44 Dose: 10 ml Sodium Chloride (Sodium Chloride Flush Syringe 10 Ml) 10 ml IV PRN PRN PRN Reason: LINE FLUSH Exam - Constitutional Vitals: Last Vital Signs Temp 98.5 F 05/05/18 07:44 Pulse 121 H 05/05/18 10:57 Resp 16 05/05/18 07:44 BP 164/82 05/05/18 10:57 Pulse Ox 95 05/05/18 07:44 Results - Labs lab Results: Laboratory Results - last 24 hr 05/04/18 05/04/18 05/04/18 11:31 11:31 11:31 WBC 10.1 RBC 5.24 H Hgb 15.5 H Hct 46.7 H MCV 89 MCH 30 MCHC 33 RDW 13.9 Plt Count 269 Lymph % (Auto) 14.2 [place] % (Auto) 12.4 H Eos % (Auto) 1.4 Baso % (Auto) 0.9 Lymph # 1.4 [place] # 1.3 H Eos # 0.1 Baso # 0.1 Add Manual Diff Total Counted Seg Neutrophils % 71.1 H Seg Neuts % (Manual) Band Neutrophils % Lymphocytes % (Manual) Reactive Lymphs % (Man) Monocytes % (Manual) Eosinophils % (Manual) Basophils % (Manual) Metamyelocytes % Myelocytes % Promyelocytes % Blast Cells % Nucleated RBC % Seg Neutrophils # 7.2 Seg Neutrophils # Man Band Neutrophils # Lymphocytes # (Manual) Abs React Lymphs (Man) Monocytes # (Manual) Eosinophils # (Manual) Basophils # (Manual) Metamyelocytes # Myelocytes # Promyelocytes # Blast Cells # WBC Morphology Hypersegmented Neuts Hyposegmented Neuts Hypogranular Neuts Smudge Cells Toxic Granulation Toxic Vacuolation Dohle Bodies Pelger-Huet Anomaly Hayde Rods Platelet Estimate Clumped Platelets Plt Clumps, EDTA Large Platelets Giant Platelets Platelet Satelliting Plt Morphology Comment RBC Morphology Dimorphic RBCs Polychromasia Hypochromasia Poikilocytosis Anisocytosis Microcytosis Macrocytosis Spherocytes Pappenheimer Bodies Sickle Cells Target Cells Tear Drop Cells Ovalocytes Helmet Cells [place] Bodies [place] Rings [place] Cells Bite Cells Crenated Cell Elliptocytes Acanthocytes (Spur) Rouleaux Hemoglobin C Crystals Schistocytes Malaria parasites Reilly Bodies Hem Pathologist Commnt PT 13.9 INR 1.02 APTT 29.9 D-Dimer 5221.96 H Sodium 140 Potassium 4.0 Chloride 100.4 Carbon Dioxide 24 Anion Gap 20 BUN 14 Creatinine 0.9 Estimated GFR > 60 BUN/Creatinine Ratio 16 Glucose 101 H Hemoglobin A1c Calcium 9.8 Magnesium Total Bilirubin 0.40 AST 22 ALT 15 Alkaline Phosphatase 128 Total Creatine Kinase CK-MB (CK-2) CK-MB (CK-2) Rel Index Troponin T NT-Pro-B Natriuret Pep Total Protein 8.1 Albumin 3.8 L Albumin/Globulin Ratio 0.9 Lipase 13 Urine Color Urine Turbidity Urine pH Ur Specific [place] Urine Protein Urine Glucose (UA) Urine Ketones Urine Blood Urine Nitrite Urine Bilirubin Urine Urobilinogen Ur Leukocyte Esterase Urine WBC (Auto) Urine RBC (Auto) U Epithel Cells (Auto) Urine Bacteria (Auto) Urine Mucus Urine Opiates Screen Urine Methadone Screen Ur Barbiturates Screen Ur Phencyclidine Scrn Ur Amphetamines Screen U Benzodiazepines Scrn Urine Cocaine Screen U Marijuana (THC) Screen Drugs of Abuse Note Blood Type Antibody Screen 05/04/18 05/04/18 05/04/18 11:31 11:31 11:31 WBC RBC Hgb Hct MCV MCH MCHC RDW Plt Count Lymph % (Auto) [place] % (Auto) Eos % (Auto) Baso % (Auto) Lymph # [place] # Eos # Baso # Add Manual Diff Total Counted Seg Neutrophils % Seg Neuts % (Manual) Band Neutrophils % Lymphocytes % (Manual) Reactive Lymphs % (Man) Monocytes % (Manual) Eosinophils % (Manual) Basophils % (Manual) Metamyelocytes % Myelocytes % Promyelocytes % Blast Cells % Nucleated RBC % Seg Neutrophils # Seg Neutrophils # Man Band Neutrophils # Lymphocytes # (Manual) Abs React Lymphs (Man) Monocytes # (Manual) Eosinophils # (Manual) Basophils # (Manual) Metamyelocytes # Myelocytes # Promyelocytes # Blast Cells # WBC Morphology Hypersegmented Neuts Hyposegmented Neuts Hypogranular Neuts Smudge Cells Toxic Granulation Toxic Vacuolation Dohle Bodies Pelger-Huet Anomaly Hayde Rods Platelet Estimate Clumped Platelets Plt Clumps, EDTA Large Platelets Giant Platelets Platelet Satelliting Plt Morphology Comment RBC Morphology Dimorphic RBCs Polychromasia Hypochromasia Poikilocytosis Anisocytosis Microcytosis Macrocytosis Spherocytes Pappenheimer Bodies Sickle Cells Target Cells Tear Drop Cells Ovalocytes Helmet Cells [place] Bodies [place] Rings [place] Cells Bite Cells Crenated Cell Elliptocytes Acanthocytes (Spur) Rouleaux Hemoglobin C Crystals Schistocytes Malaria parasites Reilly Bodies Hem Pathologist Commnt PT INR APTT D-Dimer Sodium Potassium Chloride Carbon Dioxide Anion Gap BUN Creatinine Estimated GFR BUN/Creatinine Ratio Glucose Hemoglobin A1c Calcium Magnesium 2.20 Total Bilirubin AST ALT Alkaline Phosphatase Total Creatine Kinase 375 H CK-MB (CK-2) 2.8 CK-MB (CK-2) Rel Index 0.7 Troponin T < 0.010 NT-Pro-B Natriuret Pep 84.11 Total Protein Albumin Albumin/Globulin Ratio Lipase Urine Color Urine Turbidity Urine pH Ur Specific [place] Urine Protein Urine Glucose (UA) Urine Ketones Urine Blood Urine Nitrite Urine Bilirubin Urine Urobilinogen Ur Leukocyte Esterase Urine WBC (Auto) Urine RBC (Auto) U Epithel Cells (Auto) Urine Bacteria (Auto) Urine Mucus Urine Opiates Screen Urine Methadone Screen Ur Barbiturates Screen Ur Phencyclidine Scrn Ur Amphetamines Screen U Benzodiazepines Scrn Urine Cocaine Screen U Marijuana (THC) Screen Drugs of Abuse Note Blood Type O POSITIVE Antibody Screen Negative 05/04/18 05/04/18 05/04/18 18:02 18:02 Unknown WBC RBC Hgb Hct MCV MCH MCHC RDW Plt Count Lymph % (Auto) [place] % (Auto) Eos % (Auto) Baso % (Auto) Lymph # [place] # Eos # Baso # Add Manual Diff Total Counted Seg Neutrophils % Seg Neuts % (Manual) Band Neutrophils % Lymphocytes % (Manual) Reactive Lymphs % (Man) Monocytes % (Manual) Eosinophils % (Manual) Basophils % (Manual) Metamyelocytes % Myelocytes % Promyelocytes % Blast Cells % Nucleated RBC % Seg Neutrophils # Seg Neutrophils # Man Band Neutrophils # Lymphocytes # (Manual) Abs React Lymphs (Man) Monocytes # (Manual) Eosinophils # (Manual) Basophils # (Manual) Metamyelocytes # Myelocytes # Promyelocytes # Blast Cells # WBC Morphology Hypersegmented Neuts Hyposegmented Neuts Hypogranular Neuts Smudge Cells Toxic Granulation Toxic Vacuolation Dohle Bodies Pelger-Huet Anomaly Hayde Rods Platelet Estimate Clumped Platelets Plt Clumps, EDTA Large Platelets Giant Platelets Platelet Satelliting Plt Morphology Comment RBC Morphology Dimorphic RBCs Polychromasia Hypochromasia Poikilocytosis Anisocytosis Microcytosis Macrocytosis Spherocytes Pappenheimer Bodies Sickle Cells Target Cells Tear Drop Cells Ovalocytes Helmet Cells [place] Bodies [place] Rings [place] Cells Bite Cells Crenated Cell Elliptocytes Acanthocytes (Spur) Rouleaux Hemoglobin C Crystals Schistocytes Malaria parasites [place]illy Bodies Hem Pathologist Commnt PT INR APTT D-Dimer Sodium Potassium Chloride Carbon Dioxide Anion Gap BUN Creatinine Estimated GFR BUN/Creatinine Ratio Glucose Hemoglobin A1c 6.1 H Calcium Magnesium Total Bilirubin AST ALT Alkaline Phosphatase Total Creatine Kinase CK-MB (CK-2) CK-MB (CK-2) Rel Index Troponin T < 0.010 NT-Pro-B Natriuret Pep Total Protein Albumin Albumin/Globulin Ratio Lipase Urine Color Yellow Urine Turbidity Clear Urine pH 5.0 Ur Specific [place] 1.026 Urine Protein <15 mg/dl Urine Glucose (UA) Neg Urine Ketones Tr Urine Blood Neg Urine Nitrite Neg Urine Bilirubin Neg Urine Urobilinogen < 2.0 Ur Leukocyte Esterase Neg Urine WBC (Auto) 3.0 Urine RBC (Auto) 3.0 U Epithel Cells (Auto) < 1.0 Urine Bacteria (Auto) 1+ Urine Mucus 1+ Urine Opiates Screen Urine Methadone Screen Ur Barbiturates Screen Ur Phencyclidine Scrn Ur Amphetamines Screen U Benzodiazepines Scrn Urine Cocaine Screen U Marijuana (THC) Screen Drugs of Abuse Note Blood Type Antibody Screen 05/04/18 05/05/18 05/05/18 Unknown 06:32 06:32 WBC 7.9 RBC 4.63 Hgb 13.5 Hct 41.4 MCV 89 MCH 29 MCHC 33 RDW 13.9 Plt Count 233 Lymph % (Auto) [place] % (Auto) Nuclear Medicine Officer Eos % (Auto) Baso % (Auto) Lymph # [place] # Eos # Baso # Add Manual Diff Complete Total Counted 100 Seg Neutrophils % Seg Neuts % (Manual) 66.0 Band Neutrophils % 0 Lymphocytes % (Manual) 15.0 Reactive Lymphs % (Man) 0 Monocytes % (Manual) 17.0 H Eosinophils % (Manual) 2.0 Basophils % (Manual) 0 Metamyelocytes % 0 Myelocytes % 0 Promyelocytes % 0 Blast Cells % 0 Nucleated RBC % Not Reportable Seg Neutrophils # Seg Neutrophils # Man 5.2 Band Neutrophils # 0.0 Lymphocytes # (Manual) 1.2 Abs React Lymphs (Man) 0.0 Monocytes # (Manual) 1.3 H Eosinophils # (Manual) 0.2 Basophils # (Manual) 0.0 Metamyelocytes # 0.0 Myelocytes # 0.0 Promyelocytes # 0.0 Blast Cells # 0.0 WBC Morphology Not Reportable Hypersegmented Neuts Not Reportable Hyposegmented Neuts Not Reportable Hypogranular Neuts Not Reportable Smudge Cells Not Reportable Toxic Granulation Not Reportable Toxic Vacuolation Not Reportable Dohle Bodies Not Reportable Pelger-Huet Anomaly Not Reportable Hayde Rods Not Reportable Platelet Estimate Consistent w auto Clumped Platelets Not Reportable Plt Clumps, EDTA Not Reportable Large Platelets Not Reportable Giant Platelets Not Reportable Platelet Satelliting Not Reportable Plt Morphology Comment Not Reportable RBC Morphology Normal Dimorphic RBCs Not Reportable Polychromasia Not Reportable Hypochromasia Not Reportable Poikilocytosis Not Reportable Anisocytosis Not Reportable Microcytosis Not Reportable Macrocytosis Not Reportable Spherocytes Not Reportable Pappenheimer Bodies Not Reportable Sickle Cells Not Reportable Target Cells Not Reportable Tear Drop Cells Not Reportable Ovalocytes Not Reportable Helmet Cells Not Reportable [place] Bodies Not Reportable [place] Rings Not Reportable [place] Cells Not Reportable Bite Cells Not Reportable Crenated Cell Not Reportable Elliptocytes Not Reportable Acanthocytes (Spur) Not Reportable Rouleaux Not Reportable Hemoglobin C Crystals Not Reportable Schistocytes Not Reportable Malaria parasites Not Reportable Reilly Bodies Not Reportable Hem Pathologist Commnt No PT INR APTT D-Dimer Sodium 139 Potassium 4.2 Chloride 101.6 Carbon Dioxide 23 Anion Gap 19 BUN 12 Creatinine 0.9 Estimated GFR > 60 BUN/Creatinine Ratio 13 Glucose 94 Hemoglobin A1c Calcium 9.0 Magnesium Total Bilirubin 0.30 AST 18 ALT 11 Alkaline Phosphatase 123 Total Creatine Kinase CK-MB (CK-2) CK-MB (CK-2) Rel Index Troponin T NT-Pro-B Natriuret Pep Total Protein 6.6 Albumin 3.2 L Albumin/Globulin Ratio 0.9 Lipase Urine Color Urine Turbidity Urine pH Ur Specific [place] Urine Protein Urine Glucose (UA) Urine Ketones Urine Blood Urine Nitrite Urine Bilirubin Urine Urobilinogen Ur Leukocyte Esterase Urine WBC (Auto) Urine RBC (Auto) U Epithel Cells (Auto) Urine Bacteria (Auto) Urine Mucus Urine Opiates Screen Presumptive negative Urine Methadone Screen Presumptive negative Ur Barbiturates Screen Presumptive negative Ur Phencyclidine Scrn Presumptive negative Ur Amphetamines Screen Presumptive negative U Benzodiazepines Scrn Presumptive negative Urine Cocaine Screen Presumptive negative U Marijuana (THC) Screen Presumptive positive Drugs of Abuse Note Disclamer Blood Type Antibody Screen 05/05/18 06:32 WBC RBC Hgb Hct MCV MCH MCHC RDW Plt Count Lymph % (Auto) [place] % (Auto) Eos % (Auto) Baso % (Auto) Lymph # [place] # Eos # Baso # Add Manual Diff Total Counted Seg Neutrophils % Seg Neuts % (Manual) Band Neutrophils % Lymphocytes % (Manual) Reactive Lymphs % (Man) Monocytes % (Manual) Eosinophils % (Manual) Basophils % (Manual) Metamyelocytes % Myelocytes % Promyelocytes % Blast Cells % Nucleated RBC % Seg Neutrophils # Seg Neutrophils # Man Band Neutrophils # Lymphocytes # (Manual) Abs React Lymphs (Man) Monocytes # (Manual) Eosinophils # (Manual) Basophils # (Manual) Metamyelocytes # Myelocytes # Promyelocytes # Blast Cells # WBC Morphology Hypersegmented Neuts Hyposegmented Neuts Hypogranular Neuts Smudge Cells Toxic Granulation Toxic Vacuolation Dohle Bodies Pelger-Huet Anomaly Hayde Rods Platelet Estimate Clumped Platelets Plt Clumps, EDTA Large Platelets Giant Platelets Platelet Satelliting Plt Morphology Comment RBC Morphology Dimorphic RBCs Polychromasia Hypochromasia Poikilocytosis Anisocytosis Microcytosis Macrocytosis Spherocytes Pappenheimer Bodies Sickle Cells Target Cells Tear Drop Cells Ovalocytes Helmet Cells [place] Bodies [place] Rings [place] Cells Bite Cells Crenated Cell Elliptocytes Acanthocytes (Spur) Rouleaux Hemoglobin C Crystals Schistocytes Malaria parasites [place]illy Bodies Hem Pathologist Commnt PT INR APTT D-Dimer Sodium Potassium Chloride Carbon Dioxide Anion Gap BUN Creatinine Estimated GFR BUN/Creatinine Ratio Glucose Hemoglobin A1c Calcium Magnesium Total Bilirubin AST ALT Alkaline Phosphatase Total Creatine Kinase CK-MB (CK-2) CK-MB (CK-2) Rel Index Troponin T < 0.010 NT-Pro-B Natriuret Pep Total Protein Albumin Albumin/Globulin Ratio Lipase Urine Color Urine Turbidity Urine pH Ur Specific [place] Urine Protein Urine Glucose (UA) Urine Ketones Urine Blood Urine Nitrite Urine Bilirubin Urine Urobilinogen Ur Leukocyte Esterase Urine WBC (Auto) Urine RBC (Auto) U Epithel Cells (Auto) Urine Bacteria (Auto) Urine Mucus Urine Opiates Screen Urine Methadone Screen Ur Barbiturates Screen Ur Phencyclidine Scrn Ur Amphetamines Screen U Benzodiazepines Scrn Urine Cocaine Screen U Marijuana (THC) Screen Drugs of Abuse Note Blood Type Antibody Screen
--- NOTE | 2018-05-05 12:13 | Gastroenterology Consultation ---
<SANTO ARIAS - Last Filed: 05/05/18 12:13> History of Present Illness - Reason for Consult Consult date: 05/05/18 colon mass Requesting physician: KINZA YOO - History of Present Illness Mr sam is a 48 y/o male admitted with reports of epigastric/ abdominal pain that is intermittent and back pain that has progressed. CT revealed abdominal lymphadenopathy and possible ascending colon mass. Oncology was consulted and requested GI consultation. He endorses weight loss but unable to quantify. His symptoms started 1 week ago. No family hx of colon cancer. Past History Past Medical History: other (gastric ulcers?) Past Surgical History: No surgical history Social history: smoking Family history: hypertension Medications and Allergies Allergies Allergy/AdvReac Type Severity Reaction Status Date / Time ibuprofen Allergy Vomiting Verified 04/24/15 10:14 Home Medications Medication Instructions Recorded Confirmed Last Taken Type No Known Home Medications [No 05/04/18 05/04/18 Unknown History Reported Home Medications] Active Meds: Active Medications Acetaminophen (Tylenol) 650 mg PO Q4H PRN PRN Reason: Pain MILD(1-3)/Fever >100.5/CHOUDHURY Hydromorphone HCl (Dilaudid) 1 mg IV Q3H PRN PRN Reason: Pain , Severe (7-10) Last Admin: 05/05/18 08:15 Dose: 1 mg Levofloxacin/Dextrose (Levaquin 750mg/150ml) 750 mg in 150 mls @ 100 mls/hr IV Q24HR [facility]; Protocol Last Admin: 05/04/18 23:46 Dose: 100 mls/hr Morphine Sulfate (Morphine) 2 mg IV Q3H PRN PRN Reason: Pain, severe Last Admin: 05/04/18 17:25 Dose: 2 mg Ondansetron HCl (Zofran) 4 mg IV Q8H PRN PRN Reason: Nausea And Vomiting Oxycodone/Acetaminophen (Percocet 5/325) 1 tab PO Q6H PRN PRN Reason: Pain, Moderate (4-6) Sodium Chloride (Sodium Chloride Flush Syringe 10 Ml) 10 ml IV BID [facility]ODE Last Admin: 05/04/18 23:44 Dose: 10 ml Sodium Chloride (Sodium Chloride Flush Syringe 10 Ml) 10 ml IV PRN PRN PRN Reason: LINE FLUSH Review of Systems - Review of Systems All systems: negative Cardiovascular: chest pain Gastrointestinal: abdominal pain, constipation Exam - Constitutional Vital Signs: Temp Pulse Resp BP Pulse Ox 98.5 F 121 H 16 164/82 95 05/05/18 07:44 05/05/18 10:57 05/05/18 07:44 05/05/18 10:57 05/05/18 07:44 General appearance: no acute distress - EENT Eyes: EOM intact ENT: hearing intact - Neck Neck: supple - Respiratory Respiratory: bilateral: CTA - Cardiovascular Rhythm: regular Heart Sounds: Present: S1 & S2 Extremities: pulses intact - Gastrointestinal General gastrointestinal: Present: soft, non-tender, non-distended - Integumentary Integumentary: Present: warm, dry - Neurologic Neurological: alert and oriented x3 - Psychiatric Psychiatric: appropriate mood/affect, cooperative - Labs CBC & Chem 7: 05/05/18 06:32 05/05/18 06:32 Lab Results: Laboratory Results - last 24 hr 05/04/18 05/04/18 05/04/18 11:31 11:31 11:31 WBC 10.1 RBC 5.24 H Hgb 15.5 H Hct 46.7 H MCV 89 MCH 30 MCHC 33 RDW 13.9 Plt Count 269 Lymph % (Auto) 14.2 [place] % (Auto) Baso % (Auto) 0.9 Lymph # 1.4 Add Manual Diff Total Counted Seg Neuts % (Manual) Band Neutrophils % Lymphocytes % (Manual) Reactive Lymphs % (Man) Monocytes % (Manual) Eosinophils % (Manual) Basophils % (Manual) Metamyelocytes % Myelocytes % Promyelocytes % Blast Cells % Nucleated RBC % Seg Neutrophils # Man Band Neutrophils # Lymphocytes # (Manual) Abs React Lymphs (Man) Monocytes # (Manual) Eosinophils # (Manual) Basophils # (Manual) Metamyelocytes # Myelocytes # Promyelocytes # Blast Cells # WBC Morphology Hypersegmented Neuts Hyposegmented Neuts Hypogranular Neuts Smudge Cells Toxic Granulation Toxic Vacuolation Dohle Bodies Pelger-Huet Anomaly Hayde Rods Platelet Estimate Clumped Platelets Plt Clumps, EDTA Large Platelets Giant Platelets Platelet Satelliting Plt Morphology Comment RBC Morphology Dimorphic RBCs Polychromasia Hypochromasia Poikilocytosis Anisocytosis Microcytosis Macrocytosis Spherocytes Pappenheimer Bodies Sickle Cells Target Cells Tear Drop Cells Ovalocytes Helmet Cells Gómez-Cleary Bodies [place] Rings [place] Cells Bite Cells Crenated Cell Elliptocytes Acanthocytes (Spur) Rouleaux Hemoglobin C Crystals Schistocytes Malaria parasites Reilly Bodies Hem Pathologist Commnt PT 13.9 INR 1.02 APTT 29.9 D-Dimer 5221.96 H Sodium 140 Potassium 4.0 Chloride 100.4 Carbon Dioxide 24 Anion Gap 20 BUN 14 Creatinine 0.9 Estimated GFR > 60 BUN/Creatinine Ratio 16 Glucose 101 H Hemoglobin A1c Calcium 9.8 Magnesium Total Bilirubin 0.40 AST 22 ALT 15 Alkaline Phosphatase 128 Total Creatine Kinase CK-MB (CK-2) CK-MB (CK-2) Rel Index Troponin T NT-Pro-B Natriuret Pep Total Protein 8.1 Albumin 3.8 L Albumin/Globulin Ratio 0.9 Lipase 13 Urine Color Urine Turbidity Urine pH Ur Specific [place] Urine Protein Urine Glucose (UA) Urine Ketones Urine Blood Urine Nitrite Urine Bilirubin Urine Urobilinogen Ur Leukocyte Esterase Urine WBC (Auto) Urine RBC (Auto) U Epithel Cells (Auto) Urine Bacteria (Auto) Urine Mucus Urine Opiates Screen Urine Methadone Screen Ur Barbiturates Screen Ur Phencyclidine Scrn Ur Amphetamines Screen U Benzodiazepines Scrn Urine Cocaine Screen U Marijuana (THC) Screen Drugs of Abuse Note Blood Type Antibody Screen 05/04/18 05/04/18 05/04/18 11:31 11:31 11:31 WBC RBC Hgb Hct MCV MCH MCHC RDW Plt Count Lymph % (Auto) [place] % (Auto) Baso % (Auto) Lymph # Add Manual Diff Total Counted Seg Neuts % (Manual) Band Neutrophils % Lymphocytes % (Manual) Reactive Lymphs % (Man) Monocytes % (Manual) Eosinophils % (Manual) Basophils % (Manual) Metamyelocytes % Myelocytes % Promyelocytes % Blast Cells % Nucleated RBC % Seg Neutrophils # Man Band Neutrophils # Lymphocytes # (Manual) Abs React Lymphs (Man) Monocytes # (Manual) Eosinophils # (Manual) Basophils # (Manual) Metamyelocytes # Myelocytes # Promyelocytes # Blast Cells # WBC Morphology Hypersegmented Neuts Hyposegmented Neuts Hypogranular Neuts Smudge Cells Toxic Granulation Toxic Vacuolation Dohle Bodies Pelger-Huet Anomaly Hayde Rods Platelet Estimate Clumped Platelets Plt Clumps, EDTA Large Platelets Giant Platelets Platelet Satelliting Plt Morphology Comment RBC Morphology Dimorphic RBCs Polychromasia Hypochromasia Poikilocytosis Anisocytosis Microcytosis Macrocytosis Spherocytes Pappenheimer Bodies Sickle Cells Target Cells Tear Drop Cells Ovalocytes Helmet Cells Gómez-Cleary Bodies [place] Rings [place] Cells Bite Cells Crenated Cell Elliptocytes Acanthocytes (Spur) Rouleaux Hemoglobin C Crystals Schistocytes Malaria parasites Reilly Bodies Hem Pathologist Commnt PT INR APTT D-Dimer Sodium Potassium Chloride Carbon Dioxide Anion Gap BUN Creatinine Estimated GFR BUN/Creatinine Ratio Glucose Hemoglobin A1c Calcium Magnesium 2.20 Total Bilirubin AST ALT Alkaline Phosphatase Total Creatine Kinase 375 H CK-MB (CK-2) 2.8 CK-MB (CK-2) Rel Index 0.7 Troponin T < 0.010 NT-Pro-B Natriuret Pep 84.11 Total Protein Albumin Albumin/Globulin Ratio Lipase Urine Color Urine Turbidity Urine pH Ur Specific [place] Urine Protein Urine Glucose (UA) Urine Ketones Urine Blood Urine Nitrite Urine Bilirubin Urine Urobilinogen Ur Leukocyte Esterase Urine WBC (Auto) Urine RBC (Auto) U Epithel Cells (Auto) Urine Bacteria (Auto) Urine Mucus Urine Opiates Screen Urine Methadone Screen Ur Barbiturates Screen Ur Phencyclidine Scrn Ur Amphetamines Screen U Benzodiazepines Scrn Urine Cocaine Screen U Marijuana (THC) Screen Drugs of Abuse Note Blood Type O POSITIVE Antibody Screen Negative 05/04/18 05/04/18 05/04/18 18:02 18:02 Unknown WBC RBC Hgb Hct MCV MCH MCHC RDW Plt Count Lymph % (Auto) [place] % (Auto) Baso % (Auto) Lymph # Add Manual Diff Total Counted Seg Neuts % (Manual) Band Neutrophils % Lymphocytes % (Manual) Reactive Lymphs % (Man) Monocytes % (Manual) Eosinophils % (Manual) Basophils % (Manual) Metamyelocytes % Myelocytes % Promyelocytes % Blast Cells % Nucleated RBC % Seg Neutrophils # Man Band Neutrophils # Lymphocytes # (Manual) Abs React Lymphs (Man) Monocytes # (Manual) Eosinophils # (Manual) Basophils # (Manual) Metamyelocytes # Myelocytes # Promyelocytes # Blast Cells # WBC Morphology Hypersegmented Neuts Hyposegmented Neuts Hypogranular Neuts Smudge Cells Toxic Granulation Toxic Vacuolation Dohle Bodies Pelger-Huet Anomaly Hayde Rods Platelet Estimate Clumped Platelets Plt Clumps, EDTA Large Platelets Giant Platelets Platelet Satelliting Plt Morphology Comment RBC Morphology Dimorphic RBCs Polychromasia Hypochromasia Poikilocytosis Anisocytosis Microcytosis Macrocytosis Spherocytes Pappenheimer Bodies Sickle Cells Target Cells Tear Drop Cells Ovalocytes Helmet Cells Gómez-Cleary Bodies [place] Rings [place] Cells Bite Cells Crenated Cell Elliptocytes Acanthocytes (Spur) Rouleaux Hemoglobin C Crystals Schistocytes Malaria parasites Reilly Bodies Hem Pathologist Commnt PT INR APTT D-Dimer Sodium Potassium Chloride Carbon Dioxide Anion Gap BUN Creatinine Estimated GFR BUN/Creatinine Ratio Glucose Hemoglobin A1c 6.1 H Calcium Magnesium Total Bilirubin AST ALT Alkaline Phosphatase Total Creatine Kinase CK-MB (CK-2) CK-MB (CK-2) Rel Index Troponin T < 0.010 NT-Pro-B Natriuret Pep Total Protein Albumin Albumin/Globulin Ratio Lipase Urine Color Yellow Urine Turbidity Clear Urine pH 5.0 Ur Specific [place] 1.026 Urine Protein <15 mg/dl Urine Glucose (UA) Neg Urine Ketones Tr Urine Blood Neg Urine Nitrite Neg Urine Bilirubin Neg Urine Urobilinogen < 2.0 Ur Leukocyte Esterase Neg Urine WBC (Auto) 3.0 Urine RBC (Auto) 3.0 U Epithel Cells (Auto) < 1.0 Urine Bacteria (Auto) 1+ Urine Mucus 1+ Urine Opiates Screen Urine Methadone Screen Ur Barbiturates Screen Ur Phencyclidine Scrn Ur Amphetamines Screen U Benzodiazepines Scrn Urine Cocaine Screen U Marijuana (THC) Screen Drugs of Abuse Note Blood Type Antibody Screen 05/04/18 05/05/18 05/05/18 Unknown 06:32 06:32 WBC 7.9 RBC 4.63 Hgb 13.5 Hct 41.4 MCV 89 MCH 29 MCHC 33 RDW 13.9 Plt Count 233 Lymph % (Auto) [place] % (Auto) Change Management Analyst Baso % (Auto) Lymph # Add Manual Diff Complete Total Counted 100 Seg Neuts % (Manual) 66.0 Band Neutrophils % 0 Lymphocytes % (Manual) 15.0 Reactive Lymphs % (Man) 0 Monocytes % (Manual) 17.0 H Eosinophils % (Manual) 2.0 Basophils % (Manual) 0 Metamyelocytes % 0 Myelocytes % 0 Promyelocytes % 0 Blast Cells % 0 Nucleated RBC % Not Reportable Seg Neutrophils # Man 5.2 Band Neutrophils # 0.0 Lymphocytes # (Manual) 1.2 Abs React Lymphs (Man) 0.0 Monocytes # (Manual) 1.3 H Eosinophils # (Manual) 0.2 Basophils # (Manual) 0.0 Metamyelocytes # 0.0 Myelocytes # 0.0 Promyelocytes # 0.0 Blast Cells # 0.0 WBC Morphology Not Reportable Hypersegmented Neuts Not Reportable Hyposegmented Neuts Not Reportable Hypogranular Neuts Not Reportable Smudge Cells Not Reportable Toxic Granulation Not Reportable Toxic Vacuolation Not Reportable Dohle Bodies Not Reportable Pelger-Huet Anomaly Not Reportable Hayde Rods Not Reportable Platelet Estimate Consistent w auto Clumped Platelets Not Reportable Plt Clumps, EDTA Not Reportable Large Platelets Not Reportable Giant Platelets Not Reportable Platelet Satelliting Not Reportable Plt Morphology Comment Not Reportable RBC Morphology Normal Dimorphic RBCs Not Reportable Polychromasia Not Reportable Hypochromasia Not Reportable Poikilocytosis Not Reportable Anisocytosis Not Reportable Microcytosis Not Reportable Macrocytosis Not Reportable Spherocytes Not Reportable Pappenheimer Bodies Not Reportable Sickle Cells Not Reportable Target Cells Not Reportable Tear Drop Cells Not Reportable Ovalocytes Not Reportable Helmet Cells Not Reportable Gómez-Cleary Bodies Not Reportable [place] Rings Not Reportable [place] Cells Not Reportable Bite Cells Not Reportable Crenated Cell Not Reportable Elliptocytes Not Reportable Acanthocytes (Spur) Not Reportable Rouleaux Not Reportable Hemoglobin C Crystals Not Reportable Schistocytes Not Reportable Malaria parasites Not Reportable Reilly Bodies Not Reportable Hem Pathologist Commnt No PT INR APTT D-Dimer Sodium 139 Potassium 4.2 Chloride 101.6 Carbon Dioxide 23 Anion Gap 19 BUN 12 Creatinine 0.9 Estimated GFR > 60 BUN/Creatinine Ratio 13 Glucose 94 Hemoglobin A1c Calcium 9.0 Magnesium Total Bilirubin 0.30 AST 18 ALT 11 Alkaline Phosphatase 123 Total Creatine Kinase CK-MB (CK-2) CK-MB (CK-2) Rel Index Troponin T NT-Pro-B Natriuret Pep Total Protein 6.6 Albumin 3.2 L Albumin/Globulin Ratio 0.9 Lipase Urine Color Urine Turbidity Urine pH Ur Specific [place] Urine Protein Urine Glucose (UA) Urine Ketones Urine Blood Urine Nitrite Urine Bilirubin Urine Urobilinogen Ur Leukocyte Esterase Urine WBC (Auto) Urine RBC (Auto) U Epithel Cells (Auto) Urine Bacteria (Auto) Urine Mucus Urine Opiates Screen Presumptive negative Urine Methadone Screen Presumptive negative Ur Barbiturates Screen Presumptive negative Ur Phencyclidine Scrn Presumptive negative Ur Amphetamines Screen Presumptive negative U Benzodiazepines Scrn Presumptive negative Urine Cocaine Screen Presumptive negative U Marijuana (THC) Screen Presumptive positive Drugs of Abuse Note Disclamer Blood Type Antibody Screen 05/05/18 06:32 WBC RBC Hgb Hct MCV MCH MCHC RDW Plt Count Lymph % (Auto) [place] % (Auto) Baso % (Auto) Lymph # Add Manual Diff Total Counted Seg Neuts % (Manual) Band Neutrophils % Lymphocytes % (Manual) Reactive Lymphs % (Man) Monocytes % (Manual) Eosinophils % (Manual) Basophils % (Manual) Metamyelocytes % Myelocytes % Promyelocytes % Blast Cells % Nucleated RBC % Seg Neutrophils # Man Band Neutrophils # Lymphocytes # (Manual) Abs React Lymphs (Man) Monocytes # (Manual) Eosinophils # (Manual) Basophils # (Manual) Metamyelocytes # Myelocytes # Promyelocytes # Blast Cells # WBC Morphology Hypersegmented Neuts Hyposegmented Neuts Hypogranular Neuts Smudge Cells Toxic Granulation Toxic Vacuolation Dohle Bodies Pelger-Huet Anomaly Hayde Rods Platelet Estimate Clumped Platelets Plt Clumps, EDTA Large Platelets Giant Platelets Platelet Satelliting Plt Morphology Comment RBC Morphology Dimorphic RBCs Polychromasia Hypochromasia Poikilocytosis Anisocytosis Microcytosis Macrocytosis Spherocytes Pappenheimer Bodies Sickle Cells Target Cells Tear Drop Cells Ovalocytes Helmet Cells Gómez-Cleary Bodies [place] Rings [place] Cells Bite Cells Crenated Cell Elliptocytes Acanthocytes (Spur) Rouleaux Hemoglobin C Crystals Schistocytes Malaria parasites Reilly Bodies Hem Pathologist Commnt PT INR APTT D-Dimer Sodium Potassium Chloride Carbon Dioxide Anion Gap BUN Creatinine Estimated GFR BUN/Creatinine Ratio Glucose Hemoglobin A1c Calcium Magnesium Total Bilirubin AST ALT Alkaline Phosphatase Total Creatine Kinase CK-MB (CK-2) CK-MB (CK-2) Rel Index Troponin T < 0.010 NT-Pro-B Natriuret Pep Total Protein Albumin Albumin/Globulin Ratio Lipase Urine Color Urine Turbidity Urine pH Ur Specific [place] Urine Protein Urine Glucose (UA) Urine Ketones Urine Blood Urine Nitrite Urine Bilirubin Urine Urobilinogen Ur Leukocyte Esterase Urine WBC (Auto) Urine RBC (Auto) U Epithel Cells (Auto) Urine Bacteria (Auto) Urine Mucus Urine Opiates Screen Urine Methadone Screen Ur Barbiturates Screen Ur Phencyclidine Scrn Ur Amphetamines Screen U Benzodiazepines Scrn Urine Cocaine Screen U Marijuana (THC) Screen Drugs of Abuse Note Blood Type Antibody Screen Assessment and Plan 1. colon mass 2. Abdominal pain/ back pain -CT notable for ascending colon mass and lymphadenopathy -Oncology has been consulted. -pt will need colonoscopy. Prep this PM, Clears today. NPO after MN, Hold blood thinning meds. <OLEG RICH - Last Filed: 05/05/18 12:35> Medications and Allergies Active Meds: Active Medications Acetaminophen (Tylenol) 650 mg PO Q4H PRN PRN Reason: Pain MILD(1-3)/Fever >100.5/[facility] Hydromorphone HCl (Dilaudid) 1 mg IV Q3H PRN PRN Reason: Pain , Severe (7-10) Last Admin: 05/05/18 08:15 Dose: 1 mg Levofloxacin/Dextrose (Levaquin 750mg/150ml) 750 mg in 150 mls @ 100 mls/hr IV Q24HR [facility]; Protocol Last Admin: 05/04/18 23:46 Dose: 100 mls/hr Morphine Sulfate (Morphine) 2 mg IV Q3H PRN PRN Reason: Pain, severe Last Admin: 05/04/18 17:25 Dose: 2 mg Ondansetron HCl (Zofran) 4 mg IV Q8H PRN PRN Reason: Nausea And Vomiting Oxycodone/Acetaminophen (Percocet 5/325) 1 tab PO Q6H PRN PRN Reason: Pain, Moderate (4-6) Polyethylene Glycol/Electrolytes (Golytely) 4,000 ml PO ONCE ONE Stop: 05/05/18 14:01 Sodium Chloride (Sodium Chloride Flush Syringe 10 Ml) 10 ml IV BID [facility] Last Admin: 05/04/18 23:44 Dose: 10 ml Sodium Chloride (Sodium Chloride Flush Syringe 10 Ml) 10 ml IV PRN PRN PRN Reason: LINE FLUSH Exam - Constitutional Vital Signs: Temp Pulse Resp BP Pulse Ox 98.5 F 121 H 16 164/82 95 05/05/18 07:44 05/05/18 10:57 05/05/18 07:44 05/05/18 10:57 05/05/18 07:44 - Labs CBC & Chem 7: 05/05/18 06:32 05/05/18 06:32 Lab Results: Laboratory Results - last 24 hr 05/04/18 05/04/18 05/04/18 11:31 11:31 18:02 WBC RBC Hgb Hct MCV MCH MCHC RDW Plt Count [place] % (Auto) Add Manual Diff Total Counted Seg Neuts % (Manual) Band Neutrophils % Lymphocytes % (Manual) Reactive Lymphs % (Man) Monocytes % (Manual) Eosinophils % (Manual) Basophils % (Manual) Metamyelocytes % Myelocytes % Promyelocytes % Blast Cells % Nucleated RBC % Seg Neutrophils # Man Band Neutrophils # Lymphocytes # (Manual) Abs React Lymphs (Man) Monocytes # (Manual) Eosinophils # (Manual) Basophils # (Manual) Metamyelocytes # Myelocytes # Promyelocytes # Blast Cells # WBC Morphology Hypersegmented Neuts Hyposegmented Neuts Hypogranular Neuts Smudge Cells Toxic Granulation Toxic Vacuolation Dohle Bodies Pelger-Huet Anomaly Hayde Rods Platelet Estimate Clumped Platelets Plt Clumps, EDTA Large Platelets Giant Platelets Platelet Satelliting Plt Morphology Comment RBC Morphology Dimorphic RBCs Polychromasia Hypochromasia Poikilocytosis Anisocytosis Microcytosis Macrocytosis Spherocytes Pappenheimer Bodies Sickle Cells Target Cells Tear Drop Cells Ovalocytes Helmet Cells Gómez-Cleary Bodies [place] Rings [place] Cells Bite Cells Crenated Cell Elliptocytes Acanthocytes (Spur) Rouleaux Hemoglobin C Crystals Schistocytes Malaria parasites Reilly Bodies Hem Pathologist Commnt D-Dimer 5221.96 H Sodium Potassium Chloride Carbon Dioxide Anion Gap BUN Creatinine Estimated GFR BUN/Creatinine Ratio Glucose Hemoglobin A1c 6.1 H Calcium Total Bilirubin AST ALT Alkaline Phosphatase Troponin T Total Protein Albumin Albumin/Globulin Ratio Urine Opiates Screen Urine Methadone Screen Ur Barbiturates Screen Ur Phencyclidine Scrn Ur Amphetamines Screen U Benzodiazepines Scrn Urine Cocaine Screen U Marijuana (THC) Screen Drugs of Abuse Note Blood Type O POSITIVE Antibody Screen Negative 05/04/18 05/04/18 05/05/18 18:02 Unknown 06:32 WBC 7.9 RBC 4.63 Hgb 13.5 Hct 41.4 MCV 89 MCH 29 MCHC 33 RDW 13.9 Plt Count 233 [place] % (Auto) Change Management Analyst Add Manual Diff Complete Total Counted 100 Seg Neuts % (Manual) 66.0 Band Neutrophils % 0 Lymphocytes % (Manual) 15.0 Reactive Lymphs % (Man) 0 Monocytes % (Manual) 17.0 H Eosinophils % (Manual) 2.0 Basophils % (Manual) 0 Metamyelocytes % 0 Myelocytes % 0 Promyelocytes % 0 Blast Cells % 0 Nucleated RBC % Not Reportable Seg Neutrophils # Man 5.2 Band Neutrophils # 0.0 Lymphocytes # (Manual) 1.2 Abs React Lymphs (Man) 0.0 Monocytes # (Manual) 1.3 H Eosinophils # (Manual) 0.2 Basophils # (Manual) 0.0 Metamyelocytes # 0.0 Myelocytes # 0.0 Promyelocytes # 0.0 Blast Cells # 0.0 WBC Morphology Not Reportable Hypersegmented Neuts Not Reportable Hyposegmented Neuts Not Reportable Hypogranular Neuts Not Reportable Smudge Cells Not Reportable Toxic Granulation Not Reportable Toxic Vacuolation Not Reportable Dohle Bodies Not Reportable Pelger-Huet Anomaly Not Reportable Hayde Rods Not Reportable Platelet Estimate Consistent w auto Clumped Platelets Not Reportable Plt Clumps, EDTA Not Reportable Large Platelets Not Reportable Giant Platelets Not Reportable Platelet Satelliting Not Reportable Plt Morphology Comment Not Reportable RBC Morphology Normal Dimorphic RBCs Not Reportable Polychromasia Not Reportable Hypochromasia Not Reportable Poikilocytosis Not Reportable Anisocytosis Not Reportable Microcytosis Not Reportable Macrocytosis Not Reportable Spherocytes Not Reportable Pappenheimer Bodies Not Reportable Sickle Cells Not Reportable Target Cells Not Reportable Tear Drop Cells Not Reportable Ovalocytes Not Reportable Helmet Cells Not Reportable Gómez-Cleary Bodies Not Reportable [place] Rings Not Reportable [place] Cells Not Reportable Bite Cells Not Reportable Crenated Cell Not Reportable Elliptocytes Not Reportable Acanthocytes (Spur) Not Reportable Rouleaux Not Reportable Hemoglobin C Crystals Not Reportable Schistocytes Not Reportable Malaria parasites Not Reportable Reilly Bodies Not Reportable Hem Pathologist Commnt No D-Dimer Sodium Potassium Chloride Carbon Dioxide Anion Gap BUN Creatinine Estimated GFR BUN/Creatinine Ratio Glucose Hemoglobin A1c Calcium Total Bilirubin AST ALT Alkaline Phosphatase Troponin T < 0.010 Total Protein Albumin Albumin/Globulin Ratio Urine Opiates Screen Presumptive negative Urine Methadone Screen Presumptive negative Ur Barbiturates Screen Presumptive negative Ur Phencyclidine Scrn Presumptive negative Ur Amphetamines Screen Presumptive negative U Benzodiazepines Scrn Presumptive negative Urine Cocaine Screen Presumptive negative U Marijuana (THC) Screen Presumptive positive Drugs of Abuse Note Disclamer Blood Type Antibody Screen 05/05/18 05/05/18 06:32 06:32 WBC RBC Hgb Hct MCV MCH MCHC RDW Plt Count [place] % (Auto) Add Manual Diff Total Counted Seg Neuts % (Manual) Band Neutrophils % Lymphocytes % (Manual) Reactive Lymphs % (Man) Monocytes % (Manual) Eosinophils % (Manual) Basophils % (Manual) Metamyelocytes % Myelocytes % Promyelocytes % Blast Cells % Nucleated RBC % Seg Neutrophils # Man Band Neutrophils # Lymphocytes # (Manual) Abs React Lymphs (Man) Monocytes # (Manual) Eosinophils # (Manual) Basophils # (Manual) Metamyelocytes # Myelocytes # Promyelocytes # Blast Cells # WBC Morphology Hypersegmented Neuts Hyposegmented Neuts Hypogranular Neuts Smudge Cells Toxic Granulation Toxic Vacuolation Dohle Bodies Pelger-Huet Anomaly Hayde Rods Platelet Estimate Clumped Platelets Plt Clumps, EDTA Large Platelets Giant Platelets Platelet Satelliting Plt Morphology Comment RBC Morphology Dimorphic RBCs Polychromasia Hypochromasia Poikilocytosis Anisocytosis Microcytosis Macrocytosis Spherocytes Pappenheimer Bodies Sickle Cells Target Cells Tear Drop Cells Ovalocytes Helmet Cells Gómez-Cleary Bodies [place] Rings [place] Cells Bite Cells Crenated Cell Elliptocytes Acanthocytes (Spur) Rouleaux Hemoglobin C Crystals Schistocytes Malaria parasites Reilly Bodies Hem Pathologist Commnt D-Dimer Sodium 139 Potassium 4.2 Chloride 101.6 Carbon Dioxide 23 Anion Gap 19 BUN 12 Creatinine 0.9 Estimated GFR > 60 BUN/Creatinine Ratio 13 Glucose 94 Hemoglobin A1c Calcium 9.0 Total Bilirubin 0.30 AST 18 ALT 11 Alkaline Phosphatase 123 Troponin T < 0.010 Total Protein 6.6 Albumin 3.2 L Albumin/Globulin Ratio 0.9 Urine Opiates Screen Urine Methadone Screen Ur Barbiturates Screen Ur Phencyclidine Scrn Ur Amphetamines Screen U Benzodiazepines Scrn Urine Cocaine Screen U Marijuana (THC) Screen Drugs of Abuse Note Blood Type Antibody Screen Assessment and Plan - Patient Problems (1) Colonic mass Current Visit: Yes Status: Acute Plan to address problem: Possible ascending colon mass. Patient was seen and examined. He is in agreement with colonscopy tomorrow. Thank you. (2) Interstitial lung disease Current Visit: Yes Status: Acute (3) Mediastinal lymphadenopathy Current Visit: Yes Status: Acute (4) T2DM (type 2 diabetes mellitus) Current Visit: Yes Status: Chronic
[2018-05-05] MEDS: LEVAQUIN 750MG/150ML 750 MG/150 ML BAG IV SCH (12:35)
[2018-05-05] MEDS: SODIUM CHLORIDE FLUSH SYRINGE 10 ML IV SCH (12:37)
[2018-05-05] MEDS ORDERED: GOLYTELY PO ONE (14:00)
--- NOTE | 2018-05-05 23:13 | Consultation ---
REFERRING PHYSICIAN: Dr. Myers. REASON FOR CONSULTATION: 1. Lymphadenopathy. 2. Colon mass. HISTORY OF PRESENT ILLNESS: The patient is a 48-year-old male with no significant past medical history. He states that he started having pain in his back and left side of the chest for few days. On his workup, he was found to have on his CT of the chest, abdomen and pelvis, he was found to have no evidence of pulmonary embolus, but there was abdominal and retroperitoneal lymphadenopathy with mild interstitial edema. There was some nonspecific adenopathy in the mediastinum. Trace left pleural effusion. There was also evidence of what looked like an ascending colon mass. The proximal celiac axis high grade stenosis was also suspected. The patient is undergoing a nuclear medicine stress test because of his chest pain also. Because of lymphadenopathy, Hematology consult was called. The patient has lost weight, although he stated about 4-5 pounds. He complains of some abdominal pain and constipation. Appetite is fair. PAST MEDICAL HISTORY: Otherwise, unremarkable. SOCIAL HISTORY: Positive for tobacco abuse, which he is trying to quit. Denies any alcohol use. FAMILY HISTORY: Positive for some form of cancer in the aunt in her 50s. No other family history of malignancy as per the patient. PHYSICAL EXAMINATION: GENERAL: The patient is awake and oriented. HEAD AND ENT: Unremarkable. CHEST: Clear. CARDIOVASCULAR: Regular rate and rhythm. ABDOMEN: Firm. No obvious organomegaly noted. EXTREMITIES: No clubbing, cyanosis, or edema. LABORATORY DATA: CT as mentioned in history of present illness. CT was discussed with Dr. Christianson. ASSESSMENT AND PLAN: Extensive adenopathy and a colon mass. Rule out colon cancer. PLAN: I have discussed with Dr. Washington. We will also see the patient. We will get a CEA. These lymph nodes are not amenable to biopsy. We will follow the patient. JOB# [id number] GKS/NTS
--- NOTE | 2018-05-06 00:22 | Treadmill Report ---
THALLIUM STRESS TEST LEFT VENTRICLE: Left ventricular chamber size is within normal spread. Perfusion study demonstrates mild diaphragmatic attenuation artifact, otherwise homogeneous uptake of the tracer in all segments, no significant perfusion defects identified. Gated analysis demonstrates normal left ventricular systolic function, ejection fraction of 58%. CONCLUSION: Normal myocardial perfusion study. JOB# [id number] CA/NTS
[2018-05-06] MEDS: MORPHINE IV PRN ×2 (02:53→08:50)
[2018-05-06] MEDS: SODIUM CHLORIDE FLUSH SYRINGE 10 ML IV SCH ×2 (03:04→15:17)
[2018-05-06] MEDS ORDERED: WATER FOR IRRIG STERILE ONE (07:19)
[2018-05-06] MEDS ORDERED: WATER FOR IRRIG STERILE IR ONE (07:19)
[2018-05-06] MEDS ORDERED: XYLOCAINE MPF 2% ONE (08:00)
--- NOTE | 2018-05-06 08:14 | Progress Note ---
Assessment and Plan Assessment and plan: Abdominal Lymphadenopathy. To r/o lymphoma. Oncology consulted Chest pain. Stress test done yesterday- normal. Colon mass. GI consulted. For colonoscopy today. History of gastric ulcer DVT prophylaxis with SCDs only. Full code status History Interval history: Chest pain Abdominal pain Hospitalist Physical - Physical exam Narrative exam: General: Not in acute distress, lying in bed,obese HEENT:Normocephalic, atraumatic Neck:supple,no JVD Lungs: Clear to auscultation bilaterally, no crackles, no wheeze Heart:S1 and S2 regular, no murmurs, rubs or gallop Abd: soft, mild diffuse tenderness, no rebound tenderness, non distended, normal bowel sounds Ext: No edema, no clubbing, no cyanosis Neuro: AAO x 3, moves all extremities. - Constitutional Vitals: Temp Pulse Resp BP Pulse Ox 99.8 F H 106 H 17 118/80 92 05/05/18 22:46 05/05/18 22:46 05/06/18 03:23 05/05/18 22:46 05/05/18 22:46 General appearance: Present: no acute distress, obese Results - Labs CBC & Chem 7: 05/05/18 06:32 05/05/18 06:32 Labs: Laboratory Last Values WBC 7.9 K/mm3 (4.5-11.0) 05/05/18 06:32 RBC 4.63 M/mm3 (3.65-5.03) 05/05/18 06:32 Hgb 13.5 gm/dl (11.8-15.2) 05/05/18 06:32 Hct 41.4 % (35.5-45.6) 05/05/18 06:32 MCV 89 fl (84-94) 05/05/18 06:32 MCH 29 pg (28-32) 05/05/18 06:32 MCHC 33 % (32-34) 05/05/18 06:32 RDW 13.9 % (13.2-15.2) 05/05/18 06:32 Plt Count 233 K/mm3 (140-440) 05/05/18 06:32 Lymph % (Auto) 14.2 % (13.4-35.0) 05/04/18 11:31 [place] % (Auto) [facility] Director 05/05/18 06:32 Eos % (Auto) 1.4 % (0.0-4.3) 05/04/18 11:31 Baso % (Auto) 0.9 % (0.0-1.8) 05/04/18 11:31 Lymph # 1.4 K/mm3 (1.2-5.4) 05/04/18 11:31 [place] # 1.3 K/mm3 (0.0-0.8) H 05/04/18 11:31 Eos # 0.1 K/mm3 (0.0-0.4) 05/04/18 11:31 Baso # 0.1 K/mm3 (0.0-0.1) 05/04/18 11:31 Add Manual Diff Complete 05/05/18 06:32 Total Counted 100 05/05/18 06:32 Seg Neutrophils % 71.1 % (40.0-70.0) H 05/04/18 11:31 Seg Neuts % (Manual) 66.0 % (40.0-70.0) 05/05/18 06:32 Band Neutrophils % 0 % 05/05/18 06:32 Lymphocytes % (Manual) 15.0 % (13.4-35.0) 05/05/18 06:32 Reactive Lymphs % (Man) 0 % 05/05/18 06:32 Monocytes % (Manual) 17.0 % (0.0-7.3) H 05/05/18 06:32 Eosinophils % (Manual) 2.0 % (0.0-4.3) 05/05/18 06:32 Basophils % (Manual) 0 % (0.0-1.8) 05/05/18 06:32 Metamyelocytes % 0 % 05/05/18 06:32 Myelocytes % 0 % 05/05/18 06:32 Promyelocytes % 0 % 05/05/18 06:32 Blast Cells % 0 % 05/05/18 06:32 Nucleated RBC % Not Reportable 05/05/18 06:32 Seg Neutrophils # 7.2 K/mm3 (1.8-7.7) 05/04/18 11:31 Seg Neutrophils # Man 5.2 K/mm3 (1.8-7.7) 05/05/18 06:32 Band Neutrophils # 0.0 K/mm3 05/05/18 06:32 Lymphocytes # (Manual) 1.2 K/mm3 (1.2-5.4) 05/05/18 06:32 Abs React Lymphs (Man) 0.0 K/mm3 05/05/18 06:32 Monocytes # (Manual) 1.3 K/mm3 (0.0-0.8) H 05/05/18 06:32 Eosinophils # (Manual) 0.2 K/mm3 (0.0-0.4) 05/05/18 06:32 Basophils # (Manual) 0.0 K/mm3 (0.0-0.1) 05/05/18 06:32 Metamyelocytes # 0.0 K/mm3 05/05/18 06:32 Myelocytes # 0.0 K/mm3 05/05/18 06:32 Promyelocytes # 0.0 K/mm3 05/05/18 06:32 Blast Cells # 0.0 K/mm3 05/05/18 06:32 WBC Morphology Not Reportable 05/05/18 06:32 Hypersegmented Neuts Not Reportable 05/05/18 06:32 Hyposegmented Neuts Not Reportable 05/05/18 06:32 Hypogranular Neuts Not Reportable 05/05/18 06:32 Smudge Cells Not Reportable 05/05/18 06:32 Toxic Granulation Not Reportable 05/05/18 06:32 Toxic Vacuolation Not Reportable 05/05/18 06:32 Dohle Bodies Not Reportable 05/05/18 06:32 Pelger-Huet Anomaly Not Reportable 05/05/18 06:32 Hayde Rods Not Reportable 05/05/18 06:32 Platelet Estimate Consistent w auto 05/05/18 06:32 Clumped Platelets Not Reportable 05/05/18 06:32 Plt Clumps, EDTA Not Reportable 05/05/18 06:32 Large Platelets Not Reportable 05/05/18 06:32 Giant Platelets Not Reportable 05/05/18 06:32 Platelet Satelliting Not Reportable 05/05/18 06:32 Plt Morphology Comment Not Reportable 05/05/18 06:32 RBC Morphology Normal 05/05/18 06:32 Dimorphic RBCs Not Reportable 05/05/18 06:32 Polychromasia Not Reportable 05/05/18 06:32 Hypochromasia Not Reportable 05/05/18 06:32 Poikilocytosis Not Reportable 05/05/18 06:32 Anisocytosis Not Reportable 05/05/18 06:32 Microcytosis Not Reportable 05/05/18 06:32 Macrocytosis Not Reportable 05/05/18 06:32 Spherocytes Not Reportable 05/05/18 06:32 Pappenheimer Bodies Not Reportable 05/05/18 06:32 Sickle Cells Not Reportable 05/05/18 06:32 Target Cells Not Reportable 05/05/18 06:32 Tear Drop Cells Not Reportable 05/05/18 06:32 Ovalocytes Not Reportable 05/05/18 06:32 Helmet Cells Not Reportable 05/05/18 06:32 [place] Bodies Not Reportable 05/05/18 06:32 [place] Rings Not Reportable 05/05/18 06:32 [place] Cells Not Reportable 05/05/18 06:32 Bite Cells Not Reportable 05/05/18 06:32 Crenated Cell Not Reportable 05/05/18 06:32 Elliptocytes Not Reportable 05/05/18 06:32 Acanthocytes (Spur) Not Reportable 05/05/18 06:32 Rouleaux Not Reportable 05/05/18 06:32 Hemoglobin C Crystals Not Reportable 05/05/18 06:32 Schistocytes Not Reportable 05/05/18 06:32 Malaria parasites Not Reportable 05/05/18 06:32 Reilly Bodies Not Reportable 05/05/18 06:32 Hem Pathologist Commnt No 05/05/18 06:32 PT 13.9 Sec. (12.2-14.9) 05/04/18 11:31 INR 1.02 (0.87-1.13) 05/04/18 11:31 APTT 29.9 Sec. (24.2-36.6) 05/04/18 11:31 D-Dimer 5221.96 ng/mlDDU (0-234) H 05/04/18 11:31 Sodium 139 mmol/L (137-145) 05/05/18 06:32 Potassium 4.2 mmol/L (3.6-5.0) 05/05/18 06:32 Chloride 101.6 mmol/L (98-107) 05/05/18 06:32 Carbon Dioxide 23 mmol/L (22-30) 05/05/18 06:32 Anion Gap 19 mmol/L 05/05/18 06:32 BUN 12 mg/dL (9-20) 05/05/18 06:32 Creatinine 0.9 mg/dL (0.8-1.5) 05/05/18 06:32 Estimated GFR > 60 ml/min 05/05/18 06:32 BUN/Creatinine Ratio 13 % 05/05/18 06:32 Glucose 94 mg/dL (75-100) 05/05/18 06:32 Hemoglobin A1c 6.1 % (4-6) H 05/04/18 18:02 Calcium 9.0 mg/dL (8.4-10.2) 05/05/18 06:32 Magnesium 2.20 mg/dL (1.7-2.3) 05/04/18 11:31 Total Bilirubin 0.30 mg/dL (0.1-1.2) 05/05/18 06:32 AST 18 units/L (5-40) 05/05/18 06:32 ALT 11 units/L (7-56) 05/05/18 06:32 Alkaline Phosphatase 123 units/L (35-129) 05/05/18 06:32 Total Creatine Kinase 375 units/L (55-170) H 05/04/18 11:31 CK-MB (CK-2) 2.8 ng/mL (0.0-4.0) 05/04/18 11:31 CK-MB (CK-2) Rel Index 0.7 (0-4) 05/04/18 11:31 Troponin T < 0.010 ng/mL (0.00-0.029) 05/05/18 06:32 NT-Pro-B Natriuret Pep 84.11 pg/mL (0-450) 05/04/18 11:31 Total Protein 6.6 g/dL (6.3-8.2) 05/05/18 06:32 Albumin 3.2 g/dL (3.9-5) L 05/05/18 06:32 Albumin/Globulin Ratio 0.9 % 05/05/18 06:32 Lipase 13 units/L (13-60) 05/04/18 11:31 Urine Color Yellow (Yellow) 05/04/18 Unknown Urine Turbidity Clear (Clear) 05/04/18 Unknown Urine pH 5.0 (5.0-7.0) 05/04/18 Unknown Ur Specific [place] 1.026 (1.003-1.030) 05/04/18 Unknown Urine Protein <15 mg/dl mg/dL (Negative) 05/04/18 Unknown Urine Glucose (UA) Neg mg/dL (Negative) 05/04/18 Unknown Urine Ketones Tr mg/dL (Negative) 05/04/18 Unknown Urine Blood Neg (Negative) 05/04/18 Unknown Urine Nitrite Neg (Negative) 05/04/18 Unknown Urine Bilirubin Neg (Negative) 05/04/18 Unknown Urine Urobilinogen < 2.0 mg/dL (<2.0) 05/04/18 Unknown Ur Leukocyte Esterase Neg (Negative) 05/04/18 Unknown Urine WBC (Auto) 3.0 /HPF (0.0-6.0) 05/04/18 Unknown Urine RBC (Auto) 3.0 /HPF (0.0-6.0) 05/04/18 Unknown U Epithel Cells (Auto) < 1.0 /HPF (0-13.0) 05/04/18 Unknown Urine Bacteria (Auto) 1+ /HPF (Negative) 05/04/18 Unknown Urine Mucus 1+ /HPF 05/04/18 Unknown Urine Opiates Screen Presumptive negative 05/04/18 Unknown Urine Methadone Screen Presumptive negative 05/04/18 Unknown Ur Barbiturates Screen Presumptive negative 05/04/18 Unknown Ur Phencyclidine Scrn Presumptive negative 05/04/18 Unknown Ur Amphetamines Screen Presumptive negative 05/04/18 Unknown U Benzodiazepines Scrn Presumptive negative 05/04/18 Unknown Urine Cocaine Screen Presumptive negative 05/04/18 Unknown U Marijuana (THC) Screen Presumptive positive 05/04/18 Unknown Drugs of Abuse Note Disclamer 05/04/18 Unknown Blood Type O POSITIVE 05/04/18 11:31 Antibody Screen Negative 05/04/18 11:31
--- NOTE | 2018-05-06 08:40 | Hem/Onc Progress Note ---
Assessment and Plan Follow-up on the colonoscopy. Subjective Date of service: 05/06/18 Interval history: For colonoscopy today. Complains of back pain Objective - Constitutional Vitals: Last Vital Signs Temp 99.8 F H 05/05/18 22:46 Pulse 106 H 05/05/18 22:46 Resp 17 05/06/18 03:23 BP 118/80 05/05/18 22:46 Pulse Ox 92 05/05/18 22:46 Performance status: 2- selfcare, ambulatory - Neck Neck: supple - Respiratory Respiratory effort: Positive: normal Respiratory: bilateral: CTA - Cardiovascular Rhythm: regular - Gastrointestinal General gastrointestinal: Present: soft (mildly tender)
[2018-05-06] MEDS ORDERED: NACL 0.9% 1000 ML 1,000 ML ONE (08:57)
--- NOTE | 2018-05-06 09:23 | Anesthesia Consultation ---
Anesthesia Consult and Med Hx Date of service: 05/06/18 - Airway Anesthetic Teeth Evaluation: Good ROM Head & Neck: Adequate Mental/Hyoid Distance: Adequate Mallampati Class: Class II Intubation Access Assessment: Probably Good - Pre-Operative Health Status ASA Pre-Surgery Classification: ASA3 Proposed Anesthetic Plan: MAC - Pulmonary Hx Smoking: Yes (19 y/pack) Hx Asthma: No COPD: No Hx Pneumonia: No - Gastrointestinal Hx Ulcer: Yes (2002) - Endocrine Hx End Stage Renal Disease: No - Other Systems Hx Substance Use: Yes (marijuana) Hx Cancer: (H/O LYMPHOMA) - Additional Comments Anesthesia Medical History Comments: colon mass on CT
--- NOTE | 2018-05-06 09:26 | Anesthesia Day of Surgery ---
Anesthesia Day of Surgery - Day of Surgery Patient Examined: Yes Patient H&P Reviewed: Yes Patient is NPO: Yes
[2018-05-06] MEDS ORDERED: INFANTS' GAS RELIEF PO ONE (09:31)
[2018-05-06] MEDS ORDERED: DIPRIVAN 10 MG/ML IV ONE ×2 (09:52)
--- NOTE | 2018-05-06 10:31 | Operative Report ---
Operative Report Operative Report: Date of procedure: 05/06/2018 Preprocedure diagnosis: Mass in the ascending colon on CT scan. Post procedure diagnosis: Obstructing mass in the ascending colon Procedure: Colonoscopy to the mid ascending colon. Cecum not seen due to obstruction. Endoscopist: Dr. Washington Anesthesia: Monitored anesthesia care per anesthesia department Estimated blood loss: 0 Medications: Monitored anesthesia care. See separate report by anesthesia for details. After careful discussion of the nature and purpose of the procedure as well as details of the technique risks benefits and alternatives the patient gave consent. Please see recent history and physical from the office. The patient was placed in the left lateral decubitus position and medicated per anesthesia. A rectal exam was performed sphincter tone was normal there were no masses palpable. The [employer]n 570 scope was passed transanally and advanced under continuous direct vision without difficulty to the mid ascending colon where an obstructing mass was present. The colon was well prepared. The cecum was not seen due to the the obstruction. The friable mass was completely circumferential and large although the scope did not reach through the lesion to assess the length of it. Multiple biopsies were obtained. The transverse colon, descending colon, and sigmoid colon were normal. The rectum was normal on forward and retroflexed views. The procedure was well-tolerated overall and the patient was observed in recovery. Conclusions: Malignant-appearing circumferential mass in the ascending colon with high-grade partial obstruction. Plan: Await pathology report. The patient will need surgery if this is carcinoma. Signed electronically: Kaushal Washington M.D.
[2018-05-06] MEDS: DILAUDID IV PRN ×4 (12:01→21:45)
[2018-05-06] MEDS: LEVAQUIN 750MG/150ML 750 MG/150 ML BAG IV SCH (12:02)
[2018-05-07] MEDS: PERCOCET 5/325 PO PRN ×3 (00:20→18:28)
[2018-05-07] MEDS: SODIUM CHLORIDE FLUSH SYRINGE 10 ML IV SCH ×2 (00:22→09:28)
[2018-05-07] MEDS: NACL 0.9% 1000 ML 1,000 ML IV SCH ×2 (03:11→23:06)
[2018-05-07] MEDS: DILAUDID IV PRN ×5 (03:24→22:13)
--- NOTE | 2018-05-07 08:31 | Progress Note ---
Assessment and Plan Assessment and plan: Abdominal Lymphadenopathy. To r/o lymphoma. Oncology consulted Chest pain,atypical Stress test normal. Colon mass. GI consulted. Colonoscopy done yesterday revealed a mass in ascending colon. Biopsy done, result pending History of gastric ulcer DVT prophylaxis with SCDs only. Full code status History Interval history: Chest pain Abdominal pain Colonoscopy done yesterday Hospitalist Physical - Physical exam Narrative exam: General: Not in acute distress, lying in bed,obese HEENT:Normocephalic, atraumatic Neck:supple,no JVD Lungs: Clear to auscultation bilaterally, no crackles, no wheeze Heart:S1 and S2 regular, no murmurs, rubs or gallop Abd: soft, mild diffuse tenderness, no rebound tenderness, non distended, normal bowel sounds Ext: No edema, no clubbing, no cyanosis Neuro: AAO x 3, moves all extremities. - Constitutional Vitals: Temp Pulse Resp BP Pulse Ox 99.1 F 98 H 18 129/79 93 05/06/18 22:32 05/06/18 22:32 05/07/18 03:24 05/06/18 22:32 05/06/18 22:32 General appearance: Present: no acute distress, obese Results - Labs CBC & Chem 7: 05/05/18 06:32 05/05/18 06:32 Labs: Laboratory Last Values WBC 7.9 K/mm3 (4.5-11.0) 05/05/18 06:32 RBC 4.63 M/mm3 (3.65-5.03) 05/05/18 06:32 Hgb 13.5 gm/dl (11.8-15.2) 05/05/18 06:32 Hct 41.4 % (35.5-45.6) 05/05/18 06:32 MCV 89 fl (84-94) 05/05/18 06:32 MCH 29 pg (28-32) 05/05/18 06:32 MCHC 33 % (32-34) 05/05/18 06:32 RDW 13.9 % (13.2-15.2) 05/05/18 06:32 Plt Count 233 K/mm3 (140-440) 05/05/18 06:32 Lymph % (Auto) 14.2 % (13.4-35.0) 05/04/18 11:31 [place] % (Auto) Geodetic Computator 05/05/18 06:32 Eos % (Auto) 1.4 % (0.0-4.3) 05/04/18 11:31 Baso % (Auto) 0.9 % (0.0-1.8) 05/04/18 11:31 Lymph # 1.4 K/mm3 (1.2-5.4) 05/04/18 11:31 [place] # 1.3 K/mm3 (0.0-0.8) H 05/04/18 11:31 Eos # 0.1 K/mm3 (0.0-0.4) 05/04/18 11:31 Baso # 0.1 K/mm3 (0.0-0.1) 05/04/18 11:31 Add Manual Diff Complete 05/05/18 06:32 Total Counted 100 05/05/18 06:32 Seg Neutrophils % 71.1 % (40.0-70.0) H 05/04/18 11:31 Seg Neuts % (Manual) 66.0 % (40.0-70.0) 05/05/18 06:32 Band Neutrophils % 0 % 05/05/18 06:32 Lymphocytes % (Manual) 15.0 % (13.4-35.0) 05/05/18 06:32 Reactive Lymphs % (Man) 0 % 05/05/18 06:32 Monocytes % (Manual) 17.0 % (0.0-7.3) H 05/05/18 06:32 Eosinophils % (Manual) 2.0 % (0.0-4.3) 05/05/18 06:32 Basophils % (Manual) 0 % (0.0-1.8) 05/05/18 06:32 Metamyelocytes % 0 % 05/05/18 06:32 Myelocytes % 0 % 05/05/18 06:32 Promyelocytes % 0 % 05/05/18 06:32 Blast Cells % 0 % 05/05/18 06:32 Nucleated RBC % Not Reportable 05/05/18 06:32 Seg Neutrophils # 7.2 K/mm3 (1.8-7.7) 05/04/18 11:31 Seg Neutrophils # Man 5.2 K/mm3 (1.8-7.7) 05/05/18 06:32 Band Neutrophils # 0.0 K/mm3 05/05/18 06:32 Lymphocytes # (Manual) 1.2 K/mm3 (1.2-5.4) 05/05/18 06:32 Abs React Lymphs (Man) 0.0 K/mm3 05/05/18 06:32 Monocytes # (Manual) 1.3 K/mm3 (0.0-0.8) H 05/05/18 06:32 Eosinophils # (Manual) 0.2 K/mm3 (0.0-0.4) 05/05/18 06:32 Basophils # (Manual) 0.0 K/mm3 (0.0-0.1) 05/05/18 06:32 Metamyelocytes # 0.0 K/mm3 05/05/18 06:32 Myelocytes # 0.0 K/mm3 05/05/18 06:32 Promyelocytes # 0.0 K/mm3 05/05/18 06:32 Blast Cells # 0.0 K/mm3 05/05/18 06:32 WBC Morphology Not Reportable 05/05/18 06:32 Hypersegmented Neuts Not Reportable 05/05/18 06:32 Hyposegmented Neuts Not Reportable 05/05/18 06:32 Hypogranular Neuts Not Reportable 05/05/18 06:32 Smudge Cells Not Reportable 05/05/18 06:32 Toxic Granulation Not Reportable 05/05/18 06:32 Toxic Vacuolation Not Reportable 05/05/18 06:32 Dohle Bodies Not Reportable 05/05/18 06:32 Pelger-Huet Anomaly Not Reportable 05/05/18 06:32 Hayde Rods Not Reportable 05/05/18 06:32 Platelet Estimate Consistent w auto 05/05/18 06:32 Clumped Platelets Not Reportable 05/05/18 06:32 Plt Clumps, EDTA Not Reportable 05/05/18 06:32 Large Platelets Not Reportable 05/05/18 06:32 Giant Platelets Not Reportable 05/05/18 06:32 Platelet Satelliting Not Reportable 05/05/18 06:32 Plt Morphology Comment Not Reportable 05/05/18 06:32 RBC Morphology Normal 05/05/18 06:32 Dimorphic RBCs Not Reportable 05/05/18 06:32 Polychromasia Not Reportable 05/05/18 06:32 Hypochromasia Not Reportable 05/05/18 06:32 Poikilocytosis Not Reportable 05/05/18 06:32 Anisocytosis Not Reportable 05/05/18 06:32 Microcytosis Not Reportable 05/05/18 06:32 Macrocytosis Not Reportable 05/05/18 06:32 Spherocytes Not Reportable 05/05/18 06:32 Pappenheimer Bodies Not Reportable 05/05/18 06:32 Sickle Cells Not Reportable 05/05/18 06:32 Target Cells Not Reportable 05/05/18 06:32 Tear Drop Cells Not Reportable 05/05/18 06:32 Ovalocytes Not Reportable 05/05/18 06:32 Helmet Cells Not Reportable 05/05/18 06:32 [place] Bodies Not Reportable 05/05/18 06:32 [place] Rings Not Reportable 05/05/18 06:32 [place] Cells Not Reportable 05/05/18 06:32 Bite Cells Not Reportable 05/05/18 06:32 Crenated Cell Not Reportable 05/05/18 06:32 Elliptocytes Not Reportable 05/05/18 06:32 Acanthocytes (Spur) Not Reportable 05/05/18 06:32 Rouleaux Not Reportable 05/05/18 06:32 Hemoglobin C Crystals Not Reportable 05/05/18 06:32 Schistocytes Not Reportable 05/05/18 06:32 Malaria parasites Not Reportable 05/05/18 06:32 [place] Bodies Not Reportable 05/05/18 06:32 Hem Pathologist Commnt No 05/05/18 06:32 PT 13.9 Sec. (12.2-14.9) 05/04/18 11:31 INR 1.02 (0.87-1.13) 05/04/18 11:31 APTT 29.9 Sec. (24.2-36.6) 05/04/18 11:31 D-Dimer 5221.96 ng/mlDDU (0-234) H 05/04/18 11:31 Sodium 139 mmol/L (137-145) 05/05/18 06:32 Potassium 4.2 mmol/L (3.6-5.0) 05/05/18 06:32 Chloride 101.6 mmol/L (98-107) 05/05/18 06:32 Carbon Dioxide 23 mmol/L (22-30) 05/05/18 06:32 Anion Gap 19 mmol/L 05/05/18 06:32 BUN 12 mg/dL (9-20) 05/05/18 06:32 Creatinine 0.9 mg/dL (0.8-1.5) 05/05/18 06:32 Estimated GFR > 60 ml/min 05/05/18 06:32 BUN/Creatinine Ratio 13 % 05/05/18 06:32 Glucose 94 mg/dL (75-100) 05/05/18 06:32 Hemoglobin A1c 6.1 % (4-6) H 05/04/18 18:02 Calcium 9.0 mg/dL (8.4-10.2) 05/05/18 06:32 Magnesium 2.20 mg/dL (1.7-2.3) 05/04/18 11:31 Total Bilirubin 0.30 mg/dL (0.1-1.2) 05/05/18 06:32 AST 18 units/L (5-40) 05/05/18 06:32 ALT 11 units/L (7-56) 05/05/18 06:32 Alkaline Phosphatase 123 units/L (35-129) 05/05/18 06:32 Total Creatine Kinase 375 units/L (55-170) H 05/04/18 11:31 CK-MB (CK-2) 2.8 ng/mL (0.0-4.0) 05/04/18 11:31 CK-MB (CK-2) Rel Index 0.7 (0-4) 05/04/18 11:31 Troponin T < 0.010 ng/mL (0.00-0.029) 05/05/18 06:32 NT-Pro-B Natriuret Pep 84.11 pg/mL (0-450) 05/04/18 11:31 Total Protein 6.6 g/dL (6.3-8.2) 05/05/18 06:32 Albumin 3.2 g/dL (3.9-5) L 05/05/18 06:32 Albumin/Globulin Ratio 0.9 % 05/05/18 06:32 Lipase 13 units/L (13-60) 05/04/18 11:31 Urine Color Yellow (Yellow) 05/04/18 Unknown Urine Turbidity Clear (Clear) 05/04/18 Unknown Urine pH 5.0 (5.0-7.0) 05/04/18 Unknown Ur Specific [place] 1.026 (1.003-1.030) 05/04/18 Unknown Urine Protein <15 mg/dl mg/dL (Negative) 05/04/18 Unknown Urine Glucose (UA) Neg mg/dL (Negative) 05/04/18 Unknown Urine Ketones Tr mg/dL (Negative) 05/04/18 Unknown Urine Blood Neg (Negative) 05/04/18 Unknown Urine Nitrite Neg (Negative) 05/04/18 Unknown Urine Bilirubin Neg (Negative) 05/04/18 Unknown Urine Urobilinogen < 2.0 mg/dL (<2.0) 05/04/18 Unknown Ur Leukocyte Esterase Neg (Negative) 05/04/18 Unknown Urine WBC (Auto) 3.0 /HPF (0.0-6.0) 05/04/18 Unknown Urine RBC (Auto) 3.0 /HPF (0.0-6.0) 05/04/18 Unknown U Epithel Cells (Auto) < 1.0 /HPF (0-13.0) 05/04/18 Unknown Urine Bacteria (Auto) 1+ /HPF (Negative) 05/04/18 Unknown Urine Mucus 1+ /HPF 05/04/18 Unknown Urine Opiates Screen Presumptive negative 05/04/18 Unknown Urine Methadone Screen Presumptive negative 05/04/18 Unknown Ur Barbiturates Screen Presumptive negative 05/04/18 Unknown Ur Phencyclidine Scrn Presumptive negative 05/04/18 Unknown Ur Amphetamines Screen Presumptive negative 05/04/18 Unknown U Benzodiazepines Scrn Presumptive negative 05/04/18 Unknown Urine Cocaine Screen Presumptive negative 05/04/18 Unknown U Marijuana (THC) Screen Presumptive positive 05/04/18 Unknown Drugs of Abuse Note Disclamer 05/04/18 Unknown Blood Type O POSITIVE 05/04/18 11:31 Antibody Screen Negative 05/04/18 11:31
[2018-05-07] MEDS: LEVAQUIN 750MG/150ML 750 MG/150 ML BAG IV SCH (09:27)
--- NOTE | 2018-05-07 13:43 | Gastroenterology Progress Note ---
Assessment and Plan 1. Colon mass 2. Lymphadenopathy -path pending. hematology/oncology consulted. check CEA level. further management based on path and heme/onc results; would consider surgery consult however given degree of obstruction noted on colonoscopy. Subjective Date of service: 05/07/18 Principal diagnosis: colon mass, lymphadenopathy Interval history: pt seen and examined. poor appetite and po intake. understands findings from colonoscopy. no new gi complaints. family at bedside. Objective - Constitutional Vitals: Temp Pulse Resp BP Pulse Ox 97.5 F L 96 H 19 135/90 93 05/07/18 07:50 05/07/18 07:50 05/07/18 07:50 05/07/18 07:50 05/07/18 07:50 General appearance: no acute distress - Respiratory Respiratory effort: normal Respiratory: bilateral: CTA - Cardiovascular Rhythm: regular Heart Sounds: Present: S1 & S2 - Gastrointestinal General gastrointestinal: Present: soft, non-tender, non-distended - Neurologic Neurological: alert and oriented x3 - Psychiatric Psychiatric: appropriate mood/affect - Labs CBC & Chem 7: 05/05/18 06:32 05/05/18 06:32 - Imaging CT scan: report reviewed
--- NOTE | 2018-05-07 17:13 | Hem/Onc Progress Note ---
Assessment and Plan - Patient Problems (1) Colonic mass Current Visit: Yes Status: Acute Plan to address problem: Await biopsy results. Needs surgery eval. Add CEA Subjective Date of service: 05/07/18 Interval history: Feels well overall. No new complains. Objective - Constitutional Vitals: Last Vital Signs Temp 99.1 F 05/07/18 16:45 Pulse 92 H 05/07/18 16:45 Resp 19 05/07/18 16:45 BP 143/73 05/07/18 16:45 Pulse Ox 91 05/07/18 16:45 General appearance: no acute distress - EENT Eyes: PERRL ENT: hearing intact
[2018-05-07] MEDS: MORPHINE IV PRN (20:56)
[2018-05-07] MEDS: ZOFRAN IV PRN (22:13)
[2018-05-08] MEDS: SODIUM CHLORIDE FLUSH SYRINGE 10 ML IV SCH ×3 (00:50→22:34)
[2018-05-08] MEDS: DILAUDID IV PRN ×2 (01:27→04:48)
[2018-05-08] MEDS: MORPHINE IV PRN (07:39)
[2018-05-08] MEDS: PERCOCET 5/325 PO PRN ×5 (08:12→22:30)
--- NOTE | 2018-05-08 08:18 | Progress Note ---
Assessment and Plan Assessment and plan: Abdominal Lymphadenopathy. To r/o lymphoma. Oncology consulted Chest pain,atypical Stress test normal. Colon mass. GI consulted. Colonoscopy done 05/06 revealed a mass in ascending colon. Biopsy done, result pending History of gastric ulcer DVT prophylaxis with SCDs only. Full code status History Interval history: Chest pain Abdominal pain back pain Colonoscopy done 05/06 Hospitalist Physical - Physical exam Narrative exam: General: Not in acute distress, lying in bed,obese HEENT:Normocephalic, atraumatic Neck:supple,no JVD Lungs: Clear to auscultation bilaterally, no crackles, no wheeze Heart:S1 and S2 regular, no murmurs, rubs or gallop Abd: soft, mild diffuse tenderness, no rebound tenderness, non distended, normal bowel sounds Ext: No edema, no clubbing, no cyanosis Neuro: AAO x 3, moves all extremities. - Constitutional Vitals: Temp Pulse Resp BP Pulse Ox 98.9 F 91 H 20 139/98 85 05/07/18 22:41 05/07/18 22:41 05/08/18 05:18 05/07/18 22:41 05/07/18 22:41 General appearance: Present: no acute distress, obese Results - Labs CBC & Chem 7: 05/05/18 06:32 05/05/18 06:32 Labs: Laboratory Last Values WBC 7.9 K/mm3 (4.5-11.0) 05/05/18 06:32 RBC 4.63 M/mm3 (3.65-5.03) 05/05/18 06:32 Hgb 13.5 gm/dl (11.8-15.2) 05/05/18 06:32 Hct 41.4 % (35.5-45.6) 05/05/18 06:32 MCV 89 fl (84-94) 05/05/18 06:32 MCH 29 pg (28-32) 05/05/18 06:32 MCHC 33 % (32-34) 05/05/18 06:32 RDW 13.9 % (13.2-15.2) 05/05/18 06:32 Plt Count 233 K/mm3 (140-440) 05/05/18 06:32 Lymph % (Auto) 14.2 % (13.4-35.0) 05/04/18 11:31 [place] % (Auto) [place] 05/05/18 06:32 Eos % (Auto) 1.4 % (0.0-4.3) 05/04/18 11:31 Baso % (Auto) 0.9 % (0.0-1.8) 05/04/18 11:31 Lymph # 1.4 K/mm3 (1.2-5.4) 05/04/18 11:31 [place] # 1.3 K/mm3 (0.0-0.8) H 05/04/18 11:31 Eos # 0.1 K/mm3 (0.0-0.4) 05/04/18 11:31 Baso # 0.1 K/mm3 (0.0-0.1) 05/04/18 11:31 Add Manual Diff Complete 05/05/18 06:32 Total Counted 100 05/05/18 06:32 Seg Neutrophils % 71.1 % (40.0-70.0) H 05/04/18 11:31 Seg Neuts % (Manual) 66.0 % (40.0-70.0) 05/05/18 06:32 Band Neutrophils % 0 % 05/05/18 06:32 Lymphocytes % (Manual) 15.0 % (13.4-35.0) 05/05/18 06:32 Reactive Lymphs % (Man) 0 % 05/05/18 06:32 Monocytes % (Manual) 17.0 % (0.0-7.3) H 05/05/18 06:32 Eosinophils % (Manual) 2.0 % (0.0-4.3) 05/05/18 06:32 Basophils % (Manual) 0 % (0.0-1.8) 05/05/18 06:32 Metamyelocytes % 0 % 05/05/18 06:32 Myelocytes % 0 % 05/05/18 06:32 Promyelocytes % 0 % 05/05/18 06:32 Blast Cells % 0 % 05/05/18 06:32 Nucleated RBC % Not Reportable 05/05/18 06:32 Seg Neutrophils # 7.2 K/mm3 (1.8-7.7) 05/04/18 11:31 Seg Neutrophils # Man 5.2 K/mm3 (1.8-7.7) 05/05/18 06:32 Band Neutrophils # 0.0 K/mm3 05/05/18 06:32 Lymphocytes # (Manual) 1.2 K/mm3 (1.2-5.4) 05/05/18 06:32 Abs React Lymphs (Man) 0.0 K/mm3 05/05/18 06:32 Monocytes # (Manual) 1.3 K/mm3 (0.0-0.8) H 05/05/18 06:32 Eosinophils # (Manual) 0.2 K/mm3 (0.0-0.4) 05/05/18 06:32 Basophils # (Manual) 0.0 K/mm3 (0.0-0.1) 05/05/18 06:32 Metamyelocytes # 0.0 K/mm3 05/05/18 06:32 Myelocytes # 0.0 K/mm3 05/05/18 06:32 Promyelocytes # 0.0 K/mm3 05/05/18 06:32 Blast Cells # 0.0 K/mm3 05/05/18 06:32 WBC Morphology Not Reportable 05/05/18 06:32 Hypersegmented Neuts Not Reportable 05/05/18 06:32 Hyposegmented Neuts Not Reportable 05/05/18 06:32 Hypogranular Neuts Not Reportable 05/05/18 06:32 Smudge Cells Not Reportable 05/05/18 06:32 Toxic Granulation Not Reportable 05/05/18 06:32 Toxic Vacuolation Not Reportable 05/05/18 06:32 Dohle Bodies Not Reportable 05/05/18 06:32 Pelger-Huet Anomaly Not Reportable 05/05/18 06:32 Hayde Rods Not Reportable 05/05/18 06:32 Platelet Estimate Consistent w auto 05/05/18 06:32 Clumped Platelets Not Reportable 05/05/18 06:32 Plt Clumps, EDTA Not Reportable 05/05/18 06:32 Large Platelets Not Reportable 05/05/18 06:32 Giant Platelets Not Reportable 05/05/18 06:32 Platelet Satelliting Not Reportable 05/05/18 06:32 Plt Morphology Comment Not Reportable 05/05/18 06:32 RBC Morphology Normal 05/05/18 06:32 Dimorphic RBCs Not Reportable 05/05/18 06:32 Polychromasia Not Reportable 06/07/18 06:32 Hypochromasia Not Reportable 05/05/18 06:32 Poikilocytosis Not Reportable 05/05/18 06:32 Anisocytosis Not Reportable 05/05/18 06:32 Microcytosis Not Reportable 05/05/18 06:32 Macrocytosis Not Reportable 05/05/18 06:32 Spherocytes Not Reportable 05/05/18 06:32 Pappenheimer Bodies Not Reportable 05/05/18 06:32 Sickle Cells Not Reportable 05/05/18 06:32 Target Cells Not Reportable 05/05/18 06:32 Tear Drop Cells Not Reportable 05/05/18 06:32 Ovalocytes Not Reportable 05/05/18 06:32 Helmet Cells Not Reportable 05/05/18 06:32 [place] Bodies Not Reportable 05/05/18 06:32 [place] Rings Not Reportable 05/05/18 06:32 [place] Cells Not Reportable 05/05/18 06:32 Bite Cells Not Reportable 05/05/18 06:32 Crenated Cell Not Reportable 05/05/18 06:32 Elliptocytes Not Reportable 05/05/18 06:32 Acanthocytes (Spur) Not Reportable 05/05/18 06:32 Rouleaux Not Reportable 05/05/18 06:32 Hemoglobin C Crystals Not Reportable 05/05/18 06:32 Schistocytes Not Reportable 05/05/18 06:32 Malaria parasites Not Reportable 05/05/18 06:32 Reilly Bodies Not Reportable 05/05/18 06:32 Hem Pathologist Commnt No 05/05/18 06:32 PT 13.9 Sec. (12.2-14.9) 05/04/18 11:31 INR 1.02 (0.87-1.13) 05/04/18 11:31 APTT 29.9 Sec. (24.2-36.6) 05/04/18 11:31 D-Dimer 5221.96 ng/mlDDU (0-234) H 05/04/18 11:31 Sodium 139 mmol/L (137-145) 05/05/18 06:32 Potassium 4.2 mmol/L (3.6-5.0) 05/05/18 06:32 Chloride 101.6 mmol/L (98-107) 05/05/18 06:32 Carbon Dioxide 23 mmol/L (22-30) 05/05/18 06:32 Anion Gap 19 mmol/L 05/05/18 06:32 BUN 12 mg/dL (9-20) 05/05/18 06:32 Creatinine 0.9 mg/dL (0.8-1.5) 05/05/18 06:32 Estimated GFR > 60 ml/min 05/05/18 06:32 BUN/Creatinine Ratio 13 % 05/05/18 06:32 Glucose 94 mg/dL (75-100) 05/05/18 06:32 Hemoglobin A1c 6.1 % (4-6) H 05/04/18 18:02 Calcium 9.0 mg/dL (8.4-10.2) 05/05/18 06:32 Magnesium 2.20 mg/dL (1.7-2.3) 05/04/18 11:31 Total Bilirubin 0.30 mg/dL (0.1-1.2) 05/05/18 06:32 AST 18 units/L (5-40) 05/05/18 06:32 ALT 11 units/L (7-56) 05/05/18 06:32 Alkaline Phosphatase 123 units/L (35-129) 05/05/18 06:32 Total Creatine Kinase 375 units/L (55-170) H 05/04/18 11:31 CK-MB (CK-2) 2.8 ng/mL (0.0-4.0) 05/04/18 11:31 CK-MB (CK-2) Rel Index 0.7 (0-4) 05/04/18 11:31 Troponin T < 0.010 ng/mL (0.00-0.029) 05/05/18 06:32 NT-Pro-B Natriuret Pep 84.11 pg/mL (0-450) 05/04/18 11:31 Total Protein 6.6 g/dL (6.3-8.2) 05/05/18 06:32 Albumin 3.2 g/dL (3.9-5) L 05/05/18 06:32 Albumin/Globulin Ratio 0.9 % 05/05/18 06:32 Lipase 13 units/L (13-60) 05/04/18 11:31 Urine Color Yellow (Yellow) 05/04/18 Unknown Urine Turbidity Clear (Clear) 05/04/18 Unknown Urine pH 5.0 (5.0-7.0) 05/04/18 Unknown Ur Specific [place] 1.026 (1.003-1.030) 05/04/18 Unknown Urine Protein <15 mg/dl mg/dL (Negative) 05/04/18 Unknown Urine Glucose (UA) Neg mg/dL (Negative) 05/04/18 Unknown Urine Ketones Tr mg/dL (Negative) 05/04/18 Unknown Urine Blood Neg (Negative) 05/04/18 Unknown Urine Nitrite Neg (Negative) 05/04/18 Unknown Urine Bilirubin Neg (Negative) 05/04/18 Unknown Urine Urobilinogen < 2.0 mg/dL (<2.0) 05/04/18 Unknown Ur Leukocyte Esterase Neg (Negative) 05/04/18 Unknown Urine WBC (Auto) 3.0 /HPF (0.0-6.0) 05/04/18 Unknown Urine RBC (Auto) 3.0 /HPF (0.0-6.0) 05/04/18 Unknown U Epithel Cells (Auto) < 1.0 /HPF (0-13.0) 05/04/18 Unknown Urine Bacteria (Auto) 1+ /HPF (Negative) 05/04/18 Unknown Urine Mucus 1+ /HPF 05/04/18 Unknown Urine Opiates Screen Presumptive negative 05/04/18 Unknown Urine Methadone Screen Presumptive negative 05/04/18 Unknown Ur Barbiturates Screen Presumptive negative 05/04/18 Unknown Ur Phencyclidine Scrn Presumptive negative 05/04/18 Unknown Ur Amphetamines Screen Presumptive negative 05/04/18 Unknown U Benzodiazepines Scrn Presumptive negative 05/04/18 Unknown Urine Cocaine Screen Presumptive negative 05/04/18 Unknown U Marijuana (THC) Screen Presumptive positive 05/04/18 Unknown Drugs of Abuse Note Disclamer 05/04/18 Unknown Blood Type O POSITIVE 05/04/18 11:31 Antibody Screen Negative 05/04/18 11:31
[2018-05-08] MEDS: LEVAQUIN 750MG/150ML 750 MG/150 ML BAG IV SCH (10:15)
[2018-05-08] MEDS: NACL 0.9% 1000 ML 1,000 ML IV SCH (17:43)
[2018-05-09] MEDS: PERCOCET 5/325 PO PRN ×5 (02:38→18:01)
--- NOTE | 2018-05-09 08:09 | Progress Note ---
Assessment and Plan Assessment and plan: Abdominal Lymphadenopathy. To r/o lymphoma. Oncology consulted Chest pain,atypical Stress test normal. Colon mass. GI consulted. Colonoscopy done 05/06 revealed a mass in ascending colon. Biopsy done, resulted today poorly differentiated carcinoma. Colon cancer on pathology History of gastric ulcer DVT prophylaxis with SCDs only. Full code status History Interval history: Chest pain Abdominal pain back pain Colonoscopy done 05/06 Hospitalist Physical - Physical exam Narrative exam: General: Not in acute distress, lying in bed,obese HEENT:Normocephalic, atraumatic Neck:supple,no JVD Lungs: Clear to auscultation bilaterally, no crackles, no wheeze Heart:S1 and S2 regular, no murmurs, rubs or gallop Abd: soft, mild diffuse tenderness, no rebound tenderness, non distended, normal bowel sounds Ext: No edema, no clubbing, no cyanosis Neuro: AAO x 3, moves all extremities. - Constitutional Vitals: Temp Pulse Resp BP Pulse Ox 98.3 F 98 H 18 128/86 86 05/08/18 19:46 05/08/18 19:46 05/08/18 19:46 05/08/18 19:46 05/08/18 19:46 General appearance: Present: no acute distress, obese Results - Labs CBC & Chem 7: 05/05/18 06:32 05/05/18 06:32 Labs: Laboratory Last Values WBC 7.9 K/mm3 (4.5-11.0) 05/05/18 06:32 RBC 4.63 M/mm3 (3.65-5.03) 05/05/18 06:32 Hgb 13.5 gm/dl (11.8-15.2) 05/05/18 06:32 Hct 41.4 % (35.5-45.6) 05/05/18 06:32 MCV 89 fl (84-94) 05/05/18 06:32 MCH 29 pg (28-32) 05/05/18 06:32 MCHC 33 % (32-34) 05/05/18 06:32 RDW 13.9 % (13.2-15.2) 05/05/18 06:32 Plt Count 233 K/mm3 (140-440) 05/05/18 06:32 Lymph % (Auto) 14.2 % (13.4-35.0) 05/04/18 11:31 [place] % (Auto) [employer] 05/05/18 06:32 Eos % (Auto) 1.4 % (0.0-4.3) 05/04/18 11:31 Baso % (Auto) 0.9 % (0.0-1.8) 05/04/18 11:31 Lymph # 1.4 K/mm3 (1.2-5.4) 05/04/18 11:31 [place] # 1.3 K/mm3 (0.0-0.8) H 05/04/18 11:31 Eos # 0.1 K/mm3 (0.0-0.4) 05/04/18 11:31 Baso # 0.1 K/mm3 (0.0-0.1) 05/04/18 11:31 Add Manual Diff Complete 05/05/18 06:32 Total Counted 100 05/05/18 06:32 Seg Neutrophils % 71.1 % (40.0-70.0) H 05/04/18 11:31 Seg Neuts % (Manual) 66.0 % (40.0-70.0) 05/05/18 06:32 Band Neutrophils % 0 % 05/05/18 06:32 Lymphocytes % (Manual) 15.0 % (13.4-35.0) 05/05/18 06:32 Reactive Lymphs % (Man) 0 % 05/05/18 06:32 Monocytes % (Manual) 17.0 % (0.0-7.3) H 05/05/18 06:32 Eosinophils % (Manual) 2.0 % (0.0-4.3) 05/05/18 06:32 Basophils % (Manual) 0 % (0.0-1.8) 05/05/18 06:32 Metamyelocytes % 0 % 05/05/18 06:32 Myelocytes % 0 % 05/05/18 06:32 Promyelocytes % 0 % 05/05/18 06:32 Blast Cells % 0 % 05/05/18 06:32 Nucleated RBC % Not Reportable 05/05/18 06:32 Seg Neutrophils # 7.2 K/mm3 (1.8-7.7) 05/04/18 11:31 Seg Neutrophils # Man 5.2 K/mm3 (1.8-7.7) 05/05/18 06:32 Band Neutrophils # 0.0 K/mm3 05/05/18 06:32 Lymphocytes # (Manual) 1.2 K/mm3 (1.2-5.4) 05/05/18 06:32 Abs React Lymphs (Man) 0.0 K/mm3 05/05/18 06:32 Monocytes # (Manual) 1.3 K/mm3 (0.0-0.8) H 05/05/18 06:32 Eosinophils # (Manual) 0.2 K/mm3 (0.0-0.4) 05/05/18 06:32 Basophils # (Manual) 0.0 K/mm3 (0.0-0.1) 05/05/18 06:32 Metamyelocytes # 0.0 K/mm3 05/05/18 06:32 Myelocytes # 0.0 K/mm3 05/05/18 06:32 Promyelocytes # 0.0 K/mm3 05/05/18 06:32 Blast Cells # 0.0 K/mm3 05/05/18 06:32 WBC Morphology Not Reportable 05/05/18 06:32 Hypersegmented Neuts Not Reportable 05/05/18 06:32 Hyposegmented Neuts Not Reportable 05/05/18 06:32 Hypogranular Neuts Not Reportable 05/05/18 06:32 Smudge Cells Not Reportable 05/05/18 06:32 Toxic Granulation Not Reportable 05/05/18 06:32 Toxic Vacuolation Not Reportable 05/05/18 06:32 Dohle Bodies Not Reportable 05/05/18 06:32 Pelger-Huet Anomaly Not Reportable 05/05/18 06:32 Hayde Rods Not Reportable 05/05/18 06:32 Platelet Estimate Consistent w auto 05/05/18 06:32 Clumped Platelets Not Reportable 05/05/18 06:32 Plt Clumps, EDTA Not Reportable 05/05/18 06:32 Large Platelets Not Reportable 05/05/18 06:32 Giant Platelets Not Reportable 05/05/18 06:32 Platelet Satelliting Not Reportable 05/05/18 06:32 Plt Morphology Comment Not Reportable 05/05/18 06:32 RBC Morphology Normal 05/05/18 06:32 Dimorphic RBCs Not Reportable 05/05/18 06:32 Polychromasia Not Reportable 05/05/18 06:32 Hypochromasia Not Reportable 05/05/18 06:32 Poikilocytosis Not Reportable 05/05/18 06:32 Anisocytosis Not Reportable 05/05/18 06:32 Microcytosis Not Reportable 05/05/18 06:32 Macrocytosis Not Reportable 05/05/18 06:32 Spherocytes Not Reportable 05/05/18 06:32 Pappenheimer Bodies Not Reportable 05/05/18 06:32 Sickle Cells Not Reportable 05/05/18 06:32 Target Cells Not Reportable 05/05/18 06:32 Tear Drop Cells Not Reportable 05/05/18 06:32 Ovalocytes Not Reportable 05/05/18 06:32 Helmet Cells Not Reportable 05/05/18 06:32 [place] Bodies Not Reportable 05/05/18 06:32 [place] Rings Not Reportable 05/05/18 06:32 [place] Cells Not Reportable 05/05/18 06:32 Bite Cells Not Reportable 05/05/18 06:32 Crenated Cell Not Reportable 05/05/18 06:32 Elliptocytes Not Reportable 05/05/18 06:32 Acanthocytes (Spur) Not Reportable 05/05/18 06:32 Rouleaux Not Reportable 05/05/18 06:32 Hemoglobin C Crystals Not Reportable 05/05/18 06:32 Schistocytes Not Reportable 05/05/18 06:32 Malaria parasites Not Reportable 05/05/18 06:32 Reilly Bodies Not Reportable 05/05/18 06:32 Hem Pathologist Commnt No 05/05/18 06:32 PT 13.9 Sec. (12.2-14.9) 05/04/18 11:31 INR 1.02 (0.87-1.13) 05/04/18 11:31 APTT 29.9 Sec. (24.2-36.6) 05/04/18 11:31 D-Dimer 5221.96 ng/mlDDU (0-234) H 05/04/18 11:31 Sodium 139 mmol/L (137-145) 05/05/18 06:32 Potassium 4.2 mmol/L (3.6-5.0) 05/05/18 06:32 Chloride 101.6 mmol/L (98-107) 05/05/18 06:32 Carbon Dioxide 23 mmol/L (22-30) 05/05/18 06:32 Anion Gap 19 mmol/L 05/05/18 06:32 BUN 12 mg/dL (9-20) 05/05/18 06:32 Creatinine 0.9 mg/dL (0.8-1.5) 05/05/18 06:32 Estimated GFR > 60 ml/min 05/05/18 06:32 BUN/Creatinine Ratio 13 % 05/05/18 06:32 Glucose 94 mg/dL (75-100) 05/05/18 06:32 Hemoglobin A1c 6.1 % (4-6) H 05/04/18 18:02 Calcium 9.0 mg/dL (8.4-10.2) 05/05/18 06:32 Magnesium 2.20 mg/dL (1.7-2.3) 05/04/18 11:31 Total Bilirubin 0.30 mg/dL (0.1-1.2) 05/05/18 06:32 AST 18 units/L (5-40) 05/05/18 06:32 ALT 11 units/L (7-56) 05/05/18 06:32 Alkaline Phosphatase 123 units/L (35-129) 05/05/18 06:32 Total Creatine Kinase 375 units/L (55-170) H 05/04/18 11:31 CK-MB (CK-2) 2.8 ng/mL (0.0-4.0) 05/04/18 11:31 CK-MB (CK-2) Rel Index 0.7 (0-4) 05/04/18 11:31 Troponin T < 0.010 ng/mL (0.00-0.029) 05/05/18 06:32 NT-Pro-B Natriuret Pep 84.11 pg/mL (0-450) 05/04/18 11:31 Total Protein 6.6 g/dL (6.3-8.2) 05/05/18 06:32 Albumin 3.2 g/dL (3.9-5) L 05/05/18 06:32 Albumin/Globulin Ratio 0.9 % 05/05/18 06:32 Lipase 13 units/L (13-60) 05/04/18 11:31 Urine Color Yellow (Yellow) 05/04/18 Unknown Urine Turbidity Clear (Clear) 05/04/18 Unknown Urine pH 5.0 (5.0-7.0) 05/04/18 Unknown Ur Specific [place] 1.026 (1.003-1.030) 05/04/18 Unknown Urine Protein <15 mg/dl mg/dL (Negative) 05/04/18 Unknown Urine Glucose (UA) Neg mg/dL (Negative) 05/04/18 Unknown Urine Ketones Tr mg/dL (Negative) 05/04/18 Unknown Urine Blood Neg (Negative) 05/04/18 Unknown Urine Nitrite Neg (Negative) 05/04/18 Unknown Urine Bilirubin Neg (Negative) 05/04/18 Unknown Urine Urobilinogen < 2.0 mg/dL (<2.0) 05/04/18 Unknown Ur Leukocyte Esterase Neg (Negative) 05/04/18 Unknown Urine WBC (Auto) 3.0 /HPF (0.0-6.0) 05/04/18 Unknown Urine RBC (Auto) 3.0 /HPF (0.0-6.0) 05/04/18 Unknown U Epithel Cells (Auto) < 1.0 /HPF (0-13.0) 05/04/18 Unknown Urine Bacteria (Auto) 1+ /HPF (Negative) 05/04/18 Unknown Urine Mucus 1+ /HPF 05/04/18 Unknown Urine Opiates Screen Presumptive negative 05/04/18 Unknown Urine Methadone Screen Presumptive negative 05/04/18 Unknown Ur Barbiturates Screen Presumptive negative 05/04/18 Unknown Ur Phencyclidine Scrn Presumptive negative 05/04/18 Unknown Ur Amphetamines Screen Presumptive negative 05/04/18 Unknown U Benzodiazepines Scrn Presumptive negative 05/04/18 Unknown Urine Cocaine Screen Presumptive negative 05/04/18 Unknown U Marijuana (THC) Screen Presumptive positive 05/04/18 Unknown Drugs of Abuse Note Disclamer 05/04/18 Unknown Blood Type O POSITIVE 05/04/18 11:31 Antibody Screen Negative 05/04/18 11:31
[2018-05-09] MEDS: LEVAQUIN 750MG/150ML 750 MG/150 ML BAG IV SCH (10:21)
[2018-05-09] MEDS: SODIUM CHLORIDE FLUSH SYRINGE 10 ML IV SCH ×2 (10:22→21:35)
[2018-05-09] MEDS: NACL 0.9% 1000 ML 1,000 ML IV SCH (18:06)
[2018-05-09] MEDS: DILAUDID IV PRN (21:34)
[2018-05-09] MEDS: HEPARIN SUB-Q SCH (21:34)
[2018-05-10] MEDS: DILAUDID IV PRN ×4 (01:51→21:46)
[2018-05-10] MEDS: ZOFRAN IV PRN (01:51)
[2018-05-10] MEDS: HEPARIN SUB-Q SCH ×2 (06:26→15:40)
[2018-05-10 07:09] LABS: Hematocrit 40.9 % (35.5-45.6); Hemoglobin 13.6 gm/dl (11.8-15.2); Mean Corpuscular HGB Conc 33 % (32-34); Mean Corpuscular Hemoglobin 29 pg (28-32); Mean Corpuscular Volume 88 fl (84-94); Platelet Count 139 K/mm3 (140-440); Red Blood Count 4.66 M/mm3 (3.65-5.03); Red Cell Distribution Width 13.8 % (13.2-15.2)
[2018-05-10 07:36] LABS: BUN/Creatinine Ratio 11; Blood Urea Nitrogen 10 mg/dL (9-20); Hemolysis Index 2
[2018-05-10 07:43] LABS: Calcium 9.4 mg/dL (8.4-10.2)
[2018-05-10] MEDS: LEVAQUIN 750MG/150ML 750 MG/150 ML BAG IV SCH (09:21)
[2018-05-10] MEDS: TYLENOL PO PRN (09:22)
[2018-05-10] MEDS: SODIUM CHLORIDE FLUSH SYRINGE 10 ML IV SCH ×2 (09:23→23:00)
[2018-05-10] MEDS ORDERED: PERCOCET 5/325 PO PRN (12:36)
[2018-05-10] MEDS ORDERED: DILAUDID IV PRN (12:36)
--- NOTE | 2018-05-10 15:07 | Progress Note ---
Assessment and Plan /Colon mass. GI consulted. Colonoscopy done 05/06 revealed a mass in ascending colon. Biopsy done, resulted today poorly differentiated carcinoma. will consult surgery for possible resection /Abdominal Lymphadenopathy. To r/o lymphoma. could be from colon cancer too Oncology consulted /Chest pain,atypical Stress test normal. /History of gastric ulcer, cont PPI DVT prophylaxis with SCDs only. Full code status Brief History 48 yo M with partially obstructing R sided colon mass, retroperitoneal and bilateral hilar lymphadenopathy. 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 Hospitalist Physical General: Not in acute distress, lying in bed,obese HEENT:Normocephalic, atraumatic Neck:supple,no JVD Lungs: Clear to auscultation bilaterally, no crackles, no wheeze Heart:S1 and S2 regular, no murmurs, rubs or gallop Abd: soft, mild diffuse tenderness, no rebound tenderness, non distended, normal bowel sounds Ext: No edema, no clubbing, no cyanosis Neuro: AAO x 3, moves all extremities. Subjective Date of service: 05/10/18 Principal diagnosis: colon mass, lymphadenopathy Interval history: Pt seen and examined continue to c/o abdominal pain discussed with pt and family at bedside Objective - Constitutional Vitals: Vital Signs - 12hr 05/10/18 05/10/18 05/10/18 07:44 08:00 14:58 Temperature 98.5 F 98.3 F Pulse Rate 105 H 110 H Pulse Rate [ 110 H Apical] Respiratory 21 20 22 Rate Blood Pressure 136/83 136/87 O2 Sat by Pulse 92 97 92 Oximetry - Labs CBC & Chem 7: 05/10/18 06:11 05/10/18 06:11 Labs: Abnormal lab results 05/10/18 05/10/18 Range/Units 06:11 06:11 Plt Count 139 L (140-440) K/mm3 Glucose 117 H (75-100) mg/dL
--- NOTE | 2018-05-10 19:03 | Consultation ---
History of Present Illness Consult date: 05/10/18 Chief complaint: abd pain, chest pain - History of present illness History of present illness: 48 yo M with PMHx of bleeding gastric ulcer presents to hospital with c/o intermittent sharp/dull/stabbing chest pain, abd pain, shoulder, and back pain for the last 1 week. He cannot localize the pain but states it is mainly in the left side of his abdomen and travels across to the other side. His description regarding his pain is vague. He states he came to the hospital because he could not tolerate the pains. He denies f/c, sob, n/v, difficulty eating and states that he has a good appetite. He states he is constipated at times but has not noticed a change in bowel caliber or consistency. He denies black tarry stools or bloody stools. He admits to a 5 lb unintentional weight loss in the last 1 week. He has never had a cscope before. He had an aunt who recently due to colon ca. Surgery is consulted because the patient was found to have a near obstructing ascending colon mass on cscope on 05/06/18. Past History Past Medical History: other (gastric ulcers?) Past Surgical History: Other (Exploratory laparotomy for bleeding gastric ulcer) Social history: smoking (marijuana, 1 PPD cigarettes - quit cigarettes 3 weeks ago.). denies: alcohol abuse, prescription drug abuse Family history: cancer (aunt - colon), hypertension Medications and Allergies Allergies Allergy/AdvReac Type Severity Reaction Status Date / Time ibuprofen Allergy Vomiting Verified 04/24/15 10:14 Home Medications Medication Instructions Recorded Confirmed Last Taken Type No Known Home Medications [No 05/04/18 05/04/18 Unknown History Reported Home Medications] Active Meds: Active Medications Acetaminophen (Tylenol) 650 mg PO Q4H PRN PRN Reason: Pain MILD(1-3)/Fever >100.5/CHOUDHURY Last Admin: 05/10/18 09:22 Dose: 650 mg Levofloxacin/Dextrose (Levaquin 750mg/150ml) 750 mg in 150 mls @ 100 mls/hr IV Q24HR [facility]; Protocol Stop: 05/13/18 19:59 Last Admin: 05/10/18 09:21 Dose: 100 mls/hr Ondansetron HCl (Zofran) 4 mg IV Q8H PRN PRN Reason: Nausea And Vomiting Last Admin: 05/10/18 01:51 Dose: 4 mg Sodium Chloride (Sodium Chloride Flush Syringe 10 Ml) 10 ml IV BID KAYODE Last Admin: 05/10/18 09:23 Dose: 10 ml Sodium Chloride (Sodium Chloride Flush Syringe 10 Ml) 10 ml IV PRN PRN PRN Reason: LINE FLUSH Review of Systems All systems: negative (10 point ROS performed and negative except for that listed in HPI) Exam Vital Signs Temp Pulse Resp BP Pulse Ox 97.5 F L 58 L 22 135/88 97 05/04/18 11:16 05/04/18 11:16 05/04/18 11:16 05/04/18 11:16 05/04/18 11:16 Narrative exam: Gen: AAOx3. NAD ENT: no scleral icterus or conjunctival pallor CV: S1, S2+. tachy. Resp: CTAB, no w/r/r Abd: soft, ND, + mild TTP in suprapupic area, LLQ, RLQ. no r/r/g. well healed upper midline surgical scar Ext: no c/c/e Results - Labs 05/10/18 06:11 05/10/18 06:11 Abnormal lab results 05/10/18 05/10/18 Range/Units 06:11 06:11 Plt Count 139 L (140-440) K/mm3 Glucose 117 H (75-100) mg/dL Diabetes panel 05/10/18 Range/Units 06:11 Sodium 139 (137-145) mmol/L Potassium 4.6 (3.6-5.0) mmol/L Chloride 99.4 (98-107) mmol/L Carbon Dioxide 25 (22-30) mmol/L BUN 10 (9-20) mg/dL Creatinine 0.9 (0.8-1.5) mg/dL Glucose 117 H (75-100) mg/dL Calcium 9.4 (8.4-10.2) mg/dL Calcium panel 05/10/18 Range/Units 06:11 Calcium 9.4 (8.4-10.2) mg/dL Pituitary panel 05/10/18 Range/Units 06:11 Sodium 139 (137-145) mmol/L Potassium 4.6 (3.6-5.0) mmol/L Chloride 99.4 (98-107) mmol/L Carbon Dioxide 25 (22-30) mmol/L BUN 10 (9-20) mg/dL Creatinine 0.9 (0.8-1.5) mg/dL Glucose 117 H (75-100) mg/dL Calcium 9.4 (8.4-10.2) mg/dL Adrenal panel 05/10/18 Range/Units 06:11 Sodium 139 (137-145) mmol/L Potassium 4.6 (3.6-5.0) mmol/L Chloride 99.4 (98-107) mmol/L Carbon Dioxide 25 (22-30) mmol/L BUN 10 (9-20) mg/dL Creatinine 0.9 (0.8-1.5) mg/dL Glucose 117 H (75-100) mg/dL Calcium 9.4 (8.4-10.2) mg/dL - Imaging Chest x-ray: report reviewed, image reviewed CT scan - abdomen: report reviewed, image reviewed CT scan - chest: report reviewed, image reviewed CT scan - pelvis: report reviewed, image reviewed Assessment and Plan 48 yo M with partially obstructing R sided colon mass, retroperitoneal and bilateral hilar lymphadenopathy 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 continue full liquids, do not advance diet 2. prn pain control - I recommend weaning IV narcotic pain medications. I started the patient on toradol and started oral dilaudid and decreased the dose of IV dilaudid for the time being. 3. DVT ppx - switch to lovenox SQ 4. oncology on board - CEA pending 5. ? need to r/o TB. Patient recently incarcerated with hx of 4 year incarceration in the past 6. Pt will need R hemicolectomy for obstructing colon mass. I discussed this with him in great detail. We discussed preoperative, perioperative, and post operative expectations regarding pain control, prep, and technical aspects of the procedure. We also discussed risks associated with the surgery including but not limited to bleeding, infection, injury to other structures, conversion to open procedure, and reoperation. All questions were answered. Will check with OR in the am to schedule surgery. Thank you for this consultation, please call with questions or concerns.
[2018-05-10] MEDS: DILAUDID PO PRN (19:15)
--- NOTE | 2018-05-10 22:59 | Hem/Onc Progress Note ---
Assessment and Plan - Patient Problems (1) Colonic mass Current Visit: Yes Status: Acute Plan to address problem: Will consult surgery for colectomy. D/w and sister and patient. Subjective Date of service: 05/10/18 Interval history: He still has no bowel movements. Has stable pain. Objective - Constitutional Vitals: Last Vital Signs Temp 99.2 F 05/10/18 21:14 Pulse 118 H 05/10/18 21:14 Resp 36 H 05/10/18 21:14 BP 131/83 05/10/18 21:14 Pulse Ox 92 05/10/18 21:14 Pain Intensity (0-10): 3/10 General appearance: mild distress - EENT Eyes: PERRL ENT: hearing intact - Respiratory Respiratory effort: Positive: normal Respiratory: bilateral: CTA - Cardiovascular Rhythm: regular Heart Sounds: Present: S1 & S2 - Labs Lab Results: Laboratory Results - last 24 hr 05/10/18 05/10/18 06:11 06:11 WBC 10.0 RBC 4.66 Hgb 13.6 Hct 40.9 MCV 88 MCH 29 MCHC 33 RDW 13.8 Plt Count 139 L Sodium 139 Potassium 4.6 Chloride 99.4 Carbon Dioxide 25 Anion Gap 19 BUN 10 Creatinine 0.9 Estimated GFR > 60 BUN/Creatinine Ratio 11 Glucose 117 H Calcium 9.4
[2018-05-11] MEDS ORDERED: TORADOL IV SCH
[2018-05-11] MEDS: DILAUDID IV PRN ×6 (01:52→21:50)
[2018-05-11] MEDS: LEVAQUIN 750MG/150ML 750 MG/150 ML BAG IV SCH (09:48)
[2018-05-11] MEDS: LOVENOX SUB-Q SCH (09:48)
[2018-05-11] MEDS: SODIUM CHLORIDE FLUSH SYRINGE 10 ML IV SCH ×2 (09:50→21:51)
--- NOTE | 2018-05-11 10:57 | Event Note ---
Date: 05/11/18 Patient s/p colonoscopy 05/06 revealing a malignant-appearing circumferential mass in the ascending colon with high-grade partial obstruction. Oncology is following and patient is scheduled for R hemicolectomy today. GI will sign off, please call if needed.
[2018-05-11] MEDS ORDERED: AMBIEN PO PRN (12:30)
--- NOTE | 2018-05-11 13:48 | Progress Note ---
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 clear liquids for dinner, NPO p MN tonight 2. prn pain control - recommend weaning IV narcotic pain medications. 3. DVT ppx - lovenox SQ 4. oncology on board - CEA pending 5. Lap right hemicolectomy scheduled for tomorrow afternoon 05/12/18. Consent signed. 6. Milk of magnesia x2 today 7. BMP, CBC and type and screen in am I discussed surgery with the patient in great detail yesterday. We discussed preoperative, perioperative, and post operative expectations regarding pain control, prep, and technical aspects of the procedure. We also discussed risks associated with the surgery including but not limited to bleeding, infection, injury to other structures, conversion to open procedure, and reoperation. All questions were answered. Thank you for this consultation, please call with questions or concerns. Subjective Date of service: 05/11/18 Narrative: Pt seen and examined. c/o lower abdominal pain and back pain. States the back pain is really what is bothering him. He states IV dilaudid works the best for the pain. Also c/o inability to sleep at night. He has not had a BM yet. No f/c , n/v, cp, sob. Objective Vital Signs - 12hr 05/11/18 07:36 Temperature 98.4 F Pulse Rate 112 H Respiratory 20 Rate Blood Pressure 121/79 O2 Sat by Pulse 94 Oximetry - General physical appearance Narrative Exam: Gen: AAOx3. mild distress secondary to back pain CV: S1, S2+ Resp: even and unlabored Abd: soft, ND, mildly TTP in suprapubic and RLQ Ext: no c/c/e - Labs 05/10/18 06:11 05/10/18 06:11
[2018-05-11] MEDS: MILK OF MAGNESIA PO SCH ×2 (15:13→18:38)
--- NOTE | 2018-05-11 16:19 | Progress Note ---
Assessment and Plan /Colon mass. - GI consulted. Colonoscopy done 05/06 revealed a mass in ascending colon. - Biopsy showed poorly differentiated carcinoma. - Consult surgery for possible resection, plan for surgery tomorrow /Abdominal Lymphadenopathy. Probably from colon cancer too Oncology following /Chest pain, atypical Likely from GERD Stress test normal. /History of gastric ulcer, cont PPI DVT prophylaxis with SCDs only. Full code status Brief History 48 yo M with partially obstructing R sided colon mass, retroperitoneal and bilateral hilar lymphadenopathy. 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 Hospitalist Physical General: Not in acute distress, lying in bed,obese HEENT:Normocephalic, atraumatic Neck:supple,no JVD Lungs: Clear to auscultation bilaterally, no crackles, no wheeze Heart:S1 and S2 regular, no murmurs, rubs or gallop Abd: soft, mild diffuse tenderness, no rebound tenderness, non distended, normal bowel sounds Ext: No edema, no clubbing, no cyanosis Neuro: AAO x 3, moves all extremities. Subjective Date of service: 05/11/18 Principal diagnosis: colon mass, lymphadenopathy Interval history: Pt seen and examined continue to c/o abdominal pain discussed with pt and family at bedside Plan for surgery tomorrow Objective - Constitutional Vitals: Vital Signs - 12hr 05/11/18 05/11/18 07:36 15:31 Temperature 98.4 F 99.3 F Pulse Rate 112 H 113 H Respiratory 20 14 Rate Blood Pressure 121/79 131/89 O2 Sat by Pulse 94 94 Oximetry - Labs CBC & Chem 7: 05/12/18 06:20 05/12/18 06:20
[2018-05-12] MEDS: DILAUDID IV PRN ×6 (01:15→22:41)
[2018-05-12] MEDS: SODIUM CHLORIDE FLUSH SYRINGE 10 ML IV PRN ×2 (01:16→05:08)
[2018-05-12] MEDS ORDERED: VERSED IV NR (06:00)
[2018-05-12 06:53] LABS: Hematocrit 42.1 % (35.5-45.6); Mean Corpuscular HGB Conc 33 % (32-34); Mean Corpuscular Hemoglobin 29 pg (28-32); Mean Corpuscular Volume 87 fl (84-94); Platelet Count 149 K/mm3 (140-440); Red Blood Count 4.84 M/mm3 (3.65-5.03); Red Cell Distribution Width 13.8 % (13.2-15.2)
[2018-05-12 07:12] LABS: BUN/Creatinine Ratio 18; Blood Urea Nitrogen 14 mg/dL (9-20); Calcium 9.2 mg/dL (8.4-10.2); Hemolysis Index 2
[2018-05-12 08:45] LABS: Anisocytosis 1+; Band Neutrophils # (Manual) 0.5 K/mm3; Basophils % (Manual) 0 % (0.0-1.8); Eosinophils % (Manual) 0 % (0.0-4.3); Platelet Estimate Cons; Total Cells Counted 100
[2018-05-12] MEDS: LEVAQUIN 750MG/150ML 750 MG/150 ML BAG IV SCH (09:28)
[2018-05-12] MEDS: LOVENOX SUB-Q SCH (09:34)
[2018-05-12] MEDS: SODIUM CHLORIDE FLUSH SYRINGE 10 ML IV SCH (09:34)
[2018-05-12] MEDS ORDERED: PEPCID IV ONE (13:20)
[2018-05-12] MEDS ORDERED: SUBLIMAZE ONE ×2 (13:20→14:03)
[2018-05-12] MEDS ORDERED: MARCAINE 0.5% 30 ML INFILTRATI ONE ×2 (13:20→14:28)
[2018-05-12] MEDS ORDERED: CLONIDINE 1,000 MCG/10 ML VIAL EP ONE (13:21)
[2018-05-12] MEDS ORDERED: DECADRON ONE (13:21)
[2018-05-12] MEDS ORDERED: XYLOCAINE 1% 20 mL ONE ×2 (13:21→14:27)
[2018-05-12] MEDS: LACTATED RINGERS 1,000 ML IV SCH ×2 (13:27→23:40)
[2018-05-12] MEDS ORDERED: DIPRIVAN 10 MG/ML IV ONE (14:01)
[2018-05-12] MEDS ORDERED: DILAUDID ONE ×2 (14:03→19:06)
[2018-05-12] MEDS ORDERED: ZEMURON IV ONE ×2 (14:04→15:09)
--- NOTE | 2018-05-12 14:42 | Progress Note ---
Assessment and Plan /Colon mass. - GI consulted. Colonoscopy done 05/06 revealed a mass in ascending colon. - Biopsy showed poorly differentiated carcinoma. - Consult surgery for possible resection, plan for surgery today /Abdominal Lymphadenopathy. Probably from colon cancer too Oncology following /Chest pain, atypical Likely from GERD Stress test normal. /History of gastric ulcer, cont PPI DVT prophylaxis with SCDs only. Full code status Brief History 48 yo M with partially obstructing R sided colon mass, retroperitoneal and bilateral hilar lymphadenopathy. 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 Hospitalist Physical General: Not in acute distress, lying in bed,obese HEENT:Normocephalic, atraumatic Neck:supple,no JVD Lungs: Clear to auscultation bilaterally, no crackles, no wheeze Heart:S1 and S2 regular, no murmurs, rubs or gallop Abd: soft, mild diffuse tenderness, no rebound tenderness, non distended, normal bowel sounds Ext: No edema, no clubbing, no cyanosis Neuro: AAO x 3, moves all extremities. Subjective Date of service: 05/12/18 Principal diagnosis: colon mass, lymphadenopathy Interval history: Pt seen and examined continue to c/o abdominal pain discussed with pt and family at bedside Plan for surgery today Objective - Constitutional Vitals: Vital Signs - 12hr 05/12/18 05/12/18 05:07 07:45 Temperature 97.3 F L Respiratory 20 19 Rate Blood Pressure 128/80 - Labs CBC & Chem 7: 05/13/18 07:13 05/13/18 07:13 Labs: Abnormal lab results 05/12/18 05/12/18 Range/Units 06:20 06:20 Seg Neuts % (Manual) 83.0 H (40.0-70.0) % Lymphocytes % (Manual) 8.0 L (13.4-35.0) % Nucleated RBC % 1.0 H (0.0-0.9) % Seg Neutrophils # Man 9.0 H (1.8-7.7) K/mm3 Lymphocytes # (Manual) 0.9 L (1.2-5.4) K/mm3 Glucose 120 H (75-100) mg/dL
[2018-05-12] MEDS ORDERED: KETALAR ONE (15:01)
[2018-05-12] MEDS ORDERED: NACL 0.9% 1000 ML 1,000 ML ONE ×2 (15:24→16:36)
[2018-05-12] MEDS ORDERED: LACTATED RINGERS 1,000 ML ONE (15:24)
[2018-05-12] MEDS ORDERED: NEO SYNEPHRINE/NS Syringe(OR USE) IV ONE (15:30)
[2018-05-12] MEDS ORDERED: ROBINUL ONE (15:30)
[2018-05-12] MEDS ORDERED: NACL 0.9% IR ONE (15:41)
[2018-05-12] MEDS ORDERED: ZOFRAN IV PRN (17:08)
--- NOTE | 2018-05-12 17:08 | Anesthesia Day of Surgery ---
Anesthesia Day of Surgery - Day of Surgery Patient Examined: Yes Patient H&P Reviewed: Yes Patient is NPO: Yes
--- NOTE | 2018-05-12 17:08 | Anesthesia Consultation ---
Anesthesia Consult and Med Hx Date of service: 05/12/18 - Airway Anesthetic Teeth Evaluation: Good ROM Head & Neck: Adequate Mental/Hyoid Distance: Adequate Mallampati Class: Class I Intubation Access Assessment: Good - Pulmonary Exam CTA: Yes - Cardiac Exam Cardiac Exam: RRR - Pre-Operative Health Status ASA Pre-Surgery Classification: ASA3 Proposed Anesthetic Plan: General - Pulmonary Hx Smoking: Yes (19 y/pack) Hx Asthma: No COPD: No Hx Pneumonia: No - Gastrointestinal Hx Ulcer: Yes (2002) - Endocrine Hx End Stage Renal Disease: No - Other Systems Hx Substance Use: Yes (marijuana) Hx Cancer: (H/O LYMPHOMA) - Additional Comments Anesthesia Medical History Comments: colon mass on CT
[2018-05-12] MEDS ORDERED: BLOXIVERZ ONE (19:07)
[2018-05-12] MEDS ORDERED: ZOFRAN ONE (19:07)
--- NOTE | 2018-05-12 19:23 | Post Operative Note ---
Date of procedure: 05/12/18 Pre-op diagnosis: ascending colon cancer Post-op diagnosis: same Findings: Firm mass in ascending colon with marked lymphadenopathy of the mesenteric root. Adhesions from omentum and stomach to the liver and anterior abdominal wall Procedure: Laparoscopic right hemicolectomy with primary anastamosis, lysis of adhesions Anesthesia: GETA, local, other (TAP block) Surgeon: ROWENA JONES Shelter Supervisor: CLARIBEL GANN Estimated blood loss: 50-100ml Pathology: list (right hemicolectomy, lymph nodes) Specimen disposition: to lab Condition: stable Disposition: PACU
[2018-05-12] MEDS ORDERED: ANCEF/STERILE WATER 2 GM/20 ML 2 GM/20 ML SYRINGE IV SCH (20:00)
--- NOTE | 2018-05-12 21:55 | Operative Report ---
Operative Report Operative Report: Date of procedure: 05/12/18 Pre-op diagnosis: obstructing ascending colon cancer Post-op diagnosis: same Findings: Firm mass in ascending colon with marked lymphadenopathy of the mesenteric root. Adhesions from omentum and stomach to the liver and anterior abdominal wall Procedure: Laparoscopic right hemicolectomy with primary anastamosis, lysis of adhesions Anesthesia: GETA, local, other (TAP block) Surgeon: ROWENA JONES Lubrication Servicer: CLARIBEL GANN Estimated blood loss: 50-100ml Urine output: 200cc Fluids: 3.5Liters Pathology: list (right hemicolectomy, lymph nodes) Specimen disposition: to lab Condition: stable Disposition: PACU HPI and indication: 48 yo M presented to ER with c/o abd pain, chest pain. He underwent w/u which included a CT scan A/P, Chest. He was found to have extensive lymphadenopathy and an area in the ascending colon suspicious of a mass. He underwent colonoscopy and was found to have an obstructing colon cancer in the ascending colon mass. CEA was obtained as well as oncology consult. All risks, benefits, and alternatives to right hemicolectomy was discussed with the patient and he was in agreement to proceed. Consent was signed. Procedure in detail: The patient was identified in the preoperative area and taken back to the operating room and placed on the operating room table in supine position. After anesthesia was induced, a monahan catheter was placed by the circulating nurse in sterile fashion. The patient was placed in low lithotomy position The abdominal hairs were clipped and the abdomen prepped and draped in the usual sterile fashion. A time out was performed. A small incision was made in the LUQ at ocampo's point through which a veress needle was introduced. The positioning of the veress needle was confirmed using the saline drop test. The abdomen was then insufflated to 15mmHg and the veress needle removed. The incision was extended and a 5mm optiview trocar was placed through the LUQ incision. The abdomen was inspected and no underlying injury was identified to the abdominal contents. There were dense adhesions from the omentum and stomach to the anterior abdominal wall and to the liver. There were also adhesions from the omentum to the LLQ abdominal side wall. The mass was identified in the ascending colon. The liver was examined and there was no gross evidence of metastatic disease. An additional 5mm LLQ trocar was placed under direct visualization. The adhesions from the omentum to the anterior abdominal wall were carefully taken down using ligasure. An additional 5mm trocar was placed through an incision at the umbilicus under direct visualization. The patient was placed in trendelenberg and tilted to the left. Adhesions from the cecum to the retropertitoneum were taken down carefully using the ligasure. The ascending colon mass was firm and very large lymph nodes seen at the mesenteric root which were firm and scarred down. An additional 5mm RLQ pharmacist assistant trocar was placed under direct visualization and the LLQ port was changed to a 12mm port. A window was made in the small bowel mesentery approximately 10cm from the ileocecal junction. The small bowel was transected using the endo AROLDO 60 mm blue load stapler. The omental adhesions to the L abdominal side wall were taken down using ligasure. The omentum was retracted over the transverse colon and the transverse colon was then from the omentum using ligasure in an avascular plane. the transverse colon was adhered to the gallbladder and the stomach and these adhesions were taken down using ligasure. An attempt was made to dissect the right colon from the medial to lateral approach but the mesentery was firm and the vessels were surrounded by large lymph nodes. Therefore, a lateral to medial approach was adopted. The white line of toldt was taken down in an avascular plane using the ligasure from the cecum to the hepatic flexure. The colon was swept medially with great care taken to preserve the peritoneal layer over the retroperitoneum. We then turned our attention to the mesentery and the mesentery was carefully dissected from the small bowel to the ileocolic vessels. The lymph nodes were meticulously dissected from the ileocolic vessels and because the mesentery was so scarred, the vessels were ligated at the takeoff from the SMA using endoGIA 60 mm green load stapler. The middle colic vessels were identified and the mesenteric dissection performed up until the right branch of the middle colic artery. There were many enlarged lymph nodes here as well and scarred mesentery. The duodenum was identified during the dissection and great care taken to protect it from injury. The mesentery up to the right middle colic artery was ligate using an endoGIA 60 mm blue load stapler. The colon was then placed in the LUQ and the surgical bed examined. Hemostasis was carefully ensured. The umbilical incision was carried cephalad in the midline using a 15 blade and dissection carried down through the skin and subcutaneous tissue using electrocautery. An juve wound protector was placed through the incision and the specimen removed and passed off the table. The distal small bowel and transverse colon were brought out through the wound protector and aligned side to side at the antimesenteric borders. Enterotomies were created and a side to side, functional end to end antiperistaltic ileocolonic anastamosis was created using the endoGIA 60mm blue load stapler. The common enterotomy was examined and there was no bleeding. This was closed using the endo AROLDO stapler blue load. There was no bleeding from the staple line and a 2-0 silk stitch was placed in order to take tension off the anastamosis. A tongue of omentum was draped over the anastamosis and sutured down using interrupted 2-0 silk suture. The mesenteric defect was closed using 2 -0 vicryl running stitch. The abdomen was reinsufflated and the wound bed irrigated. Hemostasis was ensured and there were no retained foreign objects. The anastamosis was seen to lay in the mid upper abdomen without tension or twisting. The ports were then removed and the abdomen desufflated. The 12mm port fascia was closed using 0- vicryl suture. The midline incision was closed using running #1 PDS. The subcutaneous tissue was irrigated and the skin closed with 4-0 monocryl subcuticular stitches and skin glue. At the end of the case, all sponge, instrument, and sharp counts were correct x2. The patient was awoken from anesthesia and extubated. The patient was taken to PACU in stable condition.
[2018-05-12] MEDS ORDERED: ceFAZolin 2 GM in NACL 0.9% 100 ML IV SCH (22:00)
[2018-05-12] MEDS: FLAGYL 500 MG/100 ML 500 MG/100 ML BAG IV SCH (23:41)
[2018-05-13] MEDS: DILAUDID IV PRN ×7 (01:06→23:40)
[2018-05-13] MEDS: FLAGYL 500 MG/100 ML 500 MG/100 ML BAG IV SCH ×3 (06:04→21:14)
[2018-05-13] MEDS: ANCEF/STERILE WATER 2 GM/20 ML 2 GM/20 ML SYRINGE IV SCH ×4 (06:07→21:56)
[2018-05-13 07:30] LABS: Hemoglobin 12.7 gm/dl (11.8-15.2); Mean Corpuscular HGB Conc 33 % (32-34); Mean Corpuscular Hemoglobin 29 pg (28-32); Mean Corpuscular Volume 88 fl (84-94); Platelet Count 149 K/mm3 (140-440); Red Blood Count 4.43 M/mm3 (3.65-5.03); Red Cell Distribution Width 13.9 % (13.2-15.2)
[2018-05-13 07:56] LABS: BUN/Creatinine Ratio 21; Blood Urea Nitrogen 19 mg/dL (9-20); Calcium 9.1 mg/dL (8.4-10.2); Hemolysis Index 0
[2018-05-13] MEDS: SODIUM CHLORIDE FLUSH SYRINGE 10 ML IV SCH ×3 (10:11→21:57)
[2018-05-13] MEDS: LOVENOX SUB-Q SCH (10:50)
--- NOTE | 2018-05-13 12:56 | Progress Note ---
Assessment and Plan 48 yo M s/p Laparoscopic right hemicolectomy with primary anastamosis, lysis of adhesions, POD 1 for ascending colon cancer Plan: 1. clear liquids, adv to full liquids in am for breakfast 2. change to maintenance IV fluids, may dc if tolerating diet in am 3. prn pain control - nursing advised to alternate between oral and IV pain meds , will give one dose of toradol (pt states allergy to ibuprofen is because of bleeding gastric ulcer in the past) 4. IS encouraged and taught to Pt 5. OOB/ambulate 6. await bowel function 7. DVT ppx -lovenox 8. await final path Please call with questions or concerns. Subjective Date of service: 05/13/18 Narrative: Pt seen and examined. c/o back pain. He also has mild pain near abdominal incisions. No f/c, n/v, cp, sob. He has voided since the monahan was removed. He has gotten out of bed. He has tolerated clear liquids. Objective Vital Signs - 12hr 05/13/18 05/13/18 05/13/18 01:06 04:08 05:02 Temperature 98.3 F Pulse Rate 84 Respiratory 16 17 17 Rate Blood Pressure 140/79 Blood Pressure [Left] O2 Sat by Pulse 96 Oximetry 05/13/18 05/13/18 05/13/18 07:00 11:00 11:30 Temperature 98.2 F 97.9 F Pulse Rate 78 89 Respiratory 16 Rate Blood Pressure Blood Pressure 128/78 142/80 [Left] O2 Sat by Pulse 95 95 Oximetry - General physical appearance Narrative Exam: Gen: AAOx3. NAD CV: S1, S2+ resp: even and unlabored Abd: soft, NT, ND. incisions c/d/i Ext: no c/c/e - Labs 05/13/18 07:13 05/13/18 07:13 Diabetes panel 05/13/18 Range/Units 07:13 Sodium 141 (137-145) mmol/L Potassium 4.7 (3.6-5.0) mmol/L Chloride 104.7 (98-107) mmol/L Carbon Dioxide 23 (22-30) mmol/L BUN 19 (9-20) mg/dL Creatinine 0.9 (0.8-1.5) mg/dL Glucose 113 H (75-100) mg/dL Calcium 9.1 (8.4-10.2) mg/dL Calcium panel 05/13/18 Range/Units 07:13 Calcium 9.1 (8.4-10.2) mg/dL Pituitary panel 05/13/18 Range/Units 07:13 Sodium 141 (137-145) mmol/L Potassium 4.7 (3.6-5.0) mmol/L Chloride 104.7 (98-107) mmol/L Carbon Dioxide 23 (22-30) mmol/L BUN 19 (9-20) mg/dL Creatinine 0.9 (0.8-1.5) mg/dL Glucose 113 H (75-100) mg/dL Calcium 9.1 (8.4-10.2) mg/dL Adrenal panel 05/13/18 Range/Units 07:13 Sodium 141 (137-145) mmol/L Potassium 4.7 (3.6-5.0) mmol/L Chloride 104.7 (98-107) mmol/L Carbon Dioxide 23 (22-30) mmol/L BUN 19 (9-20) mg/dL Creatinine 0.9 (0.8-1.5) mg/dL Glucose 113 H (75-100) mg/dL Calcium 9.1 (8.4-10.2) mg/dL
--- NOTE | 2018-05-13 13:05 | Hem/Onc Progress Note ---
Assessment and Plan Colon cancer, s/p hemicolectomy. Pathology pending. Dr. Jane will see on Wednesday Subjective Date of service: 05/13/18 Interval history: POD#1 abdominal discomfort Objective - Constitutional Vitals: Last Vital Signs Temp 97.9 F 05/13/18 11:00 Pulse 89 05/13/18 11:00 Resp 16 05/13/18 07:00 BP 142/80 05/13/18 11:00 Pulse Ox 95 05/13/18 11:30 - Labs Lab Results: Laboratory Results - last 24 hr 05/12/18 05/13/18 05/13/18 20:08 07:13 07:13 WBC 12.5 H RBC 4.43 Hgb 12.7 Hct 39.0 MCV 88 MCH 29 MCHC 33 RDW 13.9 Plt Count 149 Sodium 141 Potassium 4.7 Chloride 104.7 Carbon Dioxide 23 Anion Gap 18 BUN 19 Creatinine 0.9 Estimated GFR > 60 BUN/Creatinine Ratio 21 Glucose 113 H POC Glucose 162 H Calcium 9.1
[2018-05-13] MEDS ORDERED: TORADOL IV ONE (14:00)
--- NOTE | 2018-05-13 15:37 | Progress Note ---
Assessment and Plan /Colon mass. - GI consulted. Colonoscopy done 05/06 revealed a mass in ascending colon. - Biopsy showed poorly differentiated carcinoma. - Consult surgery for possible resection, - s/p Laparoscopic right hemicolectomy with primary anastamosis, lysis of adhesions on 05/12 /Abdominal Lymphadenopathy. Probably from colon cancer too Oncology following /Chest pain, atypical Likely from GERD Stress test normal. /History of gastric ulcer, cont PPI DVT prophylaxis with SCDs only. Full code status Brief History 48 yo M with partially obstructing R sided colon mass, retroperitoneal and bilateral hilar lymphadenopathy. 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 Hospitalist Physical General: Not in acute distress, lying in bed,obese HEENT:Normocephalic, atraumatic Neck:supple,no JVD Lungs: Clear to auscultation bilaterally, no crackles, no wheeze Heart:S1 and S2 regular, no murmurs, rubs or gallop Abd: soft, mild diffuse tenderness, surgical dressing on place Ext: No edema, no clubbing, no cyanosis Neuro: AAO x 3, moves all extremities. Subjective Date of service: 05/13/18 Principal diagnosis: colon mass, lymphadenopathy Interval history: Pt seen and examined continue to c/o abdominal pain discussed with pt at bedside s/p surgery 05/12/18 Objective - Constitutional Vitals: Vital Signs - 12hr 05/13/18 05/13/18 05/13/18 04:08 05:02 07:00 Temperature 98.3 F 98.2 F Pulse Rate 84 78 Respiratory 17 17 16 Rate Blood Pressure 140/79 Blood Pressure 128/78 [Left] O2 Sat by Pulse 96 95 Oximetry 05/13/18 05/13/18 11:00 11:30 Temperature 97.9 F Pulse Rate 89 Respiratory Rate Blood Pressure Blood Pressure 142/80 [Left] O2 Sat by Pulse 95 Oximetry - Labs CBC & Chem 7: 05/13/18 07:13 05/13/18 07:13 Labs: Abnormal lab results 05/12/18 05/13/18 05/13/18 Range/Units 20:08 07:13 07:13 WBC 12.5 H (4.5-11.0) K/mm3 Glucose 113 H (75-100) mg/dL POC Glucose 162 H (70-105)
[2018-05-13] MEDS: DILAUDID PO PRN (18:33)
[2018-05-13] MEDS: D5/0.45NS 1,000 ML IV SCH (21:14)
[2018-05-14] MEDS: DILAUDID IV PRN ×6 (02:24→21:29)
[2018-05-14] MEDS: ATIVAN IV PRN ×3 (04:52→23:40)
[2018-05-14] MEDS: FLAGYL 500 MG/100 ML 500 MG/100 ML BAG IV SCH ×3 (05:32→21:28)
[2018-05-14] MEDS: ANCEF/STERILE WATER 2 GM/20 ML 2 GM/20 ML SYRINGE IV SCH ×3 (05:34→21:28)
[2018-05-14] MEDS: D5/0.45NS 1,000 ML IV SCH (09:44)
[2018-05-14] MEDS: LOVENOX SUB-Q SCH (09:44)
--- NOTE | 2018-05-14 12:33 | Progress Note ---
Assessment and Plan /Colon mass. - GI consulted. Colonoscopy done 05/06 revealed a mass in ascending colon. - Biopsy showed poorly differentiated carcinoma. - Consult surgery for possible resection, - s/p Laparoscopic right hemicolectomy with primary anastamosis, lysis of adhesions on 05/12 /Abdominal Lymphadenopathy. Probably from colon cancer too Oncology following /Chest pain, atypical Likely from GERD Stress test normal. /History of gastric ulcer, cont PPI DVT prophylaxis with SCDs only. Full code status Brief History 48 yo M with partially obstructing R sided colon mass, retroperitoneal and bilateral hilar lymphadenopathy. 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 Hospitalist Physical General: Not in acute distress, lying in bed,obese HEENT:Normocephalic, atraumatic Neck:supple,no JVD Lungs: Clear to auscultation bilaterally, no crackles, no wheeze Heart:S1 and S2 regular, no murmurs, rubs or gallop Abd: soft, mild diffuse tenderness, surgical dressing on place Ext: No edema, no clubbing, no cyanosis Neuro: AAO x 3, moves all extremities. Subjective Date of service: 05/14/18 Principal diagnosis: colon mass, lymphadenopathy Interval history: Pt seen and examined continue to c/o abdominal pain started on diet, had Bm today discussed with pt at bedside s/p surgery 05/12/18 Objective - Constitutional Vitals: Vital Signs - 12hr 05/14/18 05/14/18 05:05 07:16 Temperature 98.7 F 99.7 F H Pulse Rate 96 H 115 H Respiratory 18 22 Rate Blood Pressure 141/94 139/88 O2 Sat by Pulse 94 90 Oximetry - Labs CBC & Chem 7: 05/15/18 07:08 05/13/18 07:13
--- NOTE | 2018-05-14 14:36 | Progress Note ---
Assessment and Plan - Patient Problems (1) Ascending colon malignant neoplasm Current Visit: Yes Status: Acute Plan to address problem: 48 yo M s/p Laparoscopic right hemicolectomy with primary anastamosis, lysis of adhesions, POD 2 for ascending colon cancer Plan: 1. Adv to soft diet as he has had a bowel movement 2. d/c IVF 3. prn pain control - nursing advised to alternate between oral and IV pain meds. By report, pt has been complaining of significant incisional pain since surgery. Seems out of proportion to what is expected. Already has a tolerance from pre-hospital drug exposure? Abd exam is not concerning for intra-abd cause. Will check labs in AM. Will increase pain meds for now. Will need to eventually start bowel regimen. 4. IS encouraged and taught to Pt 5. OOB/ambulate 6. DVT ppx -lovenox 7. await final path Please call with questions or concerns. Subjective Date of service: 05/14/18 Patient Reports: Positive: still having pain (reports significant pain at midline incision every since surgery. ), tolerating liquids well, bowel movement. Negative: nausea, vomiting Objective Vital Signs - 12hr 05/14/18 05/14/18 05/14/18 05:05 07:16 11:32 Temperature 98.7 F 99.7 F H 98.6 F Pulse Rate 96 H 115 H 120 H Respiratory 18 22 22 Rate Blood Pressure 141/94 139/88 138/75 O2 Sat by Pulse 94 90 88 Oximetry - General physical appearance no distress, moderate pain (laying on his side) - Eyes normal occular movement - Respiratory normal expansion, normal respiratory effort - Abdomen soft, tender, bowel sounds hypoactive, not distended, not guarding, not rigid, surgical scars (C/D/I. There appears to be some bruising noted around the midline incision) - Labs 05/13/18 07:13 05/13/18 07:13
[2018-05-14] MEDS: SODIUM CHLORIDE FLUSH SYRINGE 10 ML IV SCH ×2 (16:11→21:29)
[2018-05-14] MEDS: DILAUDID PO PRN (19:00)
--- NOTE | 2018-05-14 21:31 | XRay Report ---
FINAL REPORT PROCEDURE: XR ABDOMEN 2V TECHNIQUE: Abdominal series, including supine and upright AP views. HISTORY: pain COMPARISON: No prior studies are available for comparison. FINDINGS: Bowel gas pattern:Nonobstructive . Masses or calcifications:None . Bony structures:No significant abnormality . Pneumoperitoneum:None . Other:No significant findings . IMPRESSION: No acute abnormality.
[2018-05-14] MEDS: PERCOCET 5/325 PO PRN (23:38)
[2018-05-15] MEDS: DILAUDID IV PRN ×6 (03:46→22:29)
[2018-05-15] MEDS: FLAGYL 500 MG/100 ML 500 MG/100 ML BAG IV SCH ×3 (05:40→22:30)
[2018-05-15] MEDS: ANCEF/STERILE WATER 2 GM/20 ML 2 GM/20 ML SYRINGE IV SCH ×3 (07:05→22:35)
[2018-05-15 08:46] LABS: Mean Corpuscular HGB Conc 33 % (32-34); Mean Corpuscular Hemoglobin 29 pg (28-32); Mean Corpuscular Volume 87 fl (84-94); Platelet Count 146 K/mm3 (140-440); Red Blood Count 3.81 M/mm3 (3.65-5.03); Red Cell Distribution Width 13.9 % (13.2-15.2)
[2018-05-15] MEDS: PERCOCET 5/325 PO PRN (09:16)
[2018-05-15] MEDS: LOVENOX SUB-Q SCH (09:17)
[2018-05-15] MEDS: SODIUM CHLORIDE FLUSH SYRINGE 10 ML IV SCH ×2 (09:21→22:32)
[2018-05-15 10:32] LABS: Band Neutrophils # (Manual) 0.3 K/mm3; Eosinophils % (Manual) 0 % (0.0-4.3); Myelocytes # (Manual) 0.3 K/mm3; Total Cells Counted 100
[2018-05-15 10:34] LABS: Platelet Estimate Consistent w Auto; Schistocytes Rare
--- NOTE | 2018-05-15 12:53 | Progress Note ---
Assessment and Plan /Colonic mass. - GI consulted. Colonoscopy done 05/06 revealed a mass in ascending colon. - Biopsy showed poorly differentiated carcinoma. - Consult surgery for possible resection, - s/p Laparoscopic right hemicolectomy with primary anastamosis, lysis of adhesions on 05/12 - tolerating diet, adjust pain meds /Abdominal Lymphadenopathy. Probably from colon cancer too Oncology following /Chest pain, atypical Likely from GERD Stress test normal. /History of gastric ulcer, cont PPI DVT prophylaxis with SCDs only. Full code status disposition: when clears by surgery Brief History 48 yo M with partially obstructing R sided colon mass, retroperitoneal and bilateral hilar lymphadenopathy. 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 Hospitalist Physical General: Not in acute distress, lying in bed,obese HEENT:Normocephalic, atraumatic Neck:supple,no JVD Lungs: Clear to auscultation bilaterally, no crackles, no wheeze Heart:S1 and S2 regular, no murmurs, rubs or gallop Abd: soft, mild diffuse tenderness, sBS +ve Ext: No edema, no clubbing, no cyanosis Neuro: AAO x 3, moves all extremities. Subjective Date of service: 05/15/18 Principal diagnosis: colon mass, lymphadenopathy Interval history: Pt seen and examined continue to c/o back/abdominal pain tolerating diet, had Bm yesterday discussed with pt at bedside s/p surgery 05/12/18 Objective - Constitutional Vitals: Vital Signs - 12hr 05/15/18 05/15/18 05/15/18 03:46 04:32 04:34 Temperature 98.2 F 99.1 F Pulse Rate 84 122 H Respiratory 18 16 16 Rate Blood Pressure 131/96 Blood Pressure 162/71 [Left] O2 Sat by Pulse 92 91 Oximetry 05/15/18 05/15/18 05/15/18 04:35 07:05 08:00 Temperature 99.2 F Pulse Rate 120 H 124 H Respiratory 18 18 Rate Blood Pressure Blood Pressure 122/83 [Left] O2 Sat by Pulse 91 Oximetry 05/15/18 05/15/18 11:52 12:00 Temperature 98.6 F Pulse Rate 125 H 87 Respiratory 18 Rate Blood Pressure Blood Pressure 121/81 [Left] O2 Sat by Pulse 89 Oximetry - Labs CBC & Chem 7: 05/16/18 05:04 05/16/18 05:04 Labs: Abnormal lab results 05/15/18 Range/Units 07:08 WBC 12.7 H (4.5-11.0) K/mm3 Hgb 11.0 L (11.8-15.2) gm/dl Hct 33.0 L D (35.5-45.6) % Seg Neuts % (Manual) 86.0 H (40.0-70.0) % Lymphocytes % (Manual) 4.0 L (13.4-35.0) % Nucleated RBC % 1.0 H (0.0-0.9) % Seg Neutrophils # Man 10.9 H (1.8-7.7) K/mm3 Lymphocytes # (Manual) 0.5 L (1.2-5.4) K/mm3
[2018-05-15] MEDS ORDERED: VALIUM PO SCH (13:30)
[2018-05-15] MEDS ORDERED: VALIUM IV SCH (14:00)
[2018-05-15] MEDS ORDERED: NACL 0.45% 1000 ML 1,000 ML IV SCH (14:00)
--- NOTE | 2018-05-15 14:39 | Progress Note ---
Assessment and Plan - Patient Problems (1) Ascending colon malignant neoplasm Current Visit: Yes Status: Acute Plan to address problem: 48 yo M s/p Laparoscopic right hemicolectomy with primary anastamosis, lysis of adhesions, POD 3 for ascending colon cancer I was worried when I initially saw his heart rate in the 120s this morning. In looking back at his trends, he has been that high before today. Interestingly, he looks and he reports that he is feeling better. I thought his abdominal exam was also better today. No pelvic shake tenderness. He also reports that he is having abdominal wall spasms which is causing his discomfort. The high heart rate may be a combination of issues such as abdominal wall spasms and mild dehydration. I discussed this with Dr. Asencio who saw the patient with me. She was okay with my trying low dose Valium as well as giving him a fluid bolus today. I will check on him again later today. We'll repeat the labs for tomorrow as his WBC, still elevated. Of note, Dr. Asencio did report that pain control has been an issue with him even before the surgery. Plan: 1. Soft Diet 2. Fluid bolus 3. prn pain control - nursing advised to alternate between oral and IV pain meds. By report, pt has been complaining of significant incisional pain since surgery. Seems out of proportion to what is expected. If there is a component of muscle spasming, he may benefit from low dose valium. 4. IS encouraged and taught to Pt 5. OOB/ambulate 6. DVT ppx -lovenox 7. await final path Please call with questions or concerns. Subjective Date of service: 05/15/18 Patient Reports: Positive: feels better (Pain is concentrated in midline. rest of abdomen feels ok. He does report that he feels better than yesterday), still having pain (in midline primarily), tolerating a regular diet (soft diet), bowel movement. Negative: nausea, vomiting Objective Vital Signs - 12hr 05/15/18 05/15/18 05/15/18 03:46 04:32 04:34 Temperature 98.2 F 99.1 F Pulse Rate 84 122 H Respiratory 18 16 16 Rate Blood Pressure 131/96 Blood Pressure 162/71 [Left] O2 Sat by Pulse 92 91 Oximetry 05/15/18 05/15/18 05/15/18 04:35 07:05 08:00 Temperature 99.2 F Pulse Rate 120 H 124 H Respiratory 18 18 Rate Blood Pressure Blood Pressure 122/83 [Left] O2 Sat by Pulse 91 Oximetry 05/15/18 05/15/18 11:52 12:00 Temperature 98.6 F Pulse Rate 125 H 87 Respiratory 18 Rate Blood Pressure Blood Pressure 121/81 [Left] O2 Sat by Pulse 89 Oximetry - General physical appearance no distress (Looks more comfortable today) - Eyes normal occular movement - Respiratory normal respiratory effort (when he is not moving), other (some compromise to breathing due to pain when he moves. ) - Abdomen soft, tender (in midline primarily. The surrounding abdomen is not tender - better than yesterday.), bowel sounds hypoactive, distended (minimal?), not guarding, not rigid, surgical scars (C/D/I. Midline ecchymosis is unchanged. No active drainage seen.) - Psychiatric oriented to time, oriented to person, oriented to place, speech is normal, memory intact - Labs 05/15/18 07:08 05/13/18 07:13 - Imaging Abdominal x-ray: report reviewed, image reviewed
--- NOTE | 2018-05-15 18:14 | Event Note ---
Date: 05/15/18 I went to recheck the patient as previously planned. Heart rate was about the same. I noted that his oxygen saturation was low. He reports that he is using the incentive spirometer. I had him demonstrate it. He was able to get it up to 1000 mL. I advised him on slightly better technique. He said he will do that. He received his Valium about 2 hours prior to this recheck. He reports that it made no difference. Of note, it was a very low dose. I will increase the dose to see if it helps them. He otherwise reports there is no change in his pain level from this morning. I have encouraged him to ambulate. He does not appear toxic at this time. As the rest of his abdominal exam was improved compared to yesterday and he looks better than yesterday, I think it's safe to continue to monitor him. I have asked the staff to let me know if he looks like he is getting worse in any way.
[2018-05-15] MEDS: NEURONTIN PO SCH (22:32)
[2018-05-15] MEDS: VALIUM PO SCH (22:37)
[2018-05-16] MEDS: PERCOCET 5/325 PO PRN ×2 (00:56→04:58)
[2018-05-16] MEDS: ATIVAN IV PRN (00:57)
[2018-05-16] MEDS: DILAUDID IV PRN ×4 (03:03→20:24)
[2018-05-16] MEDS: DILAUDID PO PRN ×4 (03:04→23:38)
[2018-05-16] MEDS: FLAGYL 500 MG/100 ML 500 MG/100 ML BAG IV SCH (05:01)
[2018-05-16] MEDS: ANCEF/STERILE WATER 2 GM/20 ML 2 GM/20 ML SYRINGE IV SCH (05:03)
[2018-05-16] MEDS: NEURONTIN PO SCH ×3 (05:05→21:49)
[2018-05-16] MEDS: VALIUM PO SCH ×3 (05:05→21:49)
[2018-05-16 06:30] LABS: Hemoglobin 11.2 gm/dl (11.8-15.2); Mean Corpuscular HGB Conc 33 % (32-34); Mean Corpuscular Hemoglobin 29 pg (28-32); Mean Corpuscular Volume 87 fl (84-94); Platelet Count 153 K/mm3 (140-440); Red Blood Count 3.89 M/mm3 (3.65-5.03); Red Cell Distribution Width 13.7 % (13.2-15.2)
[2018-05-16 06:56] LABS: BUN/Creatinine Ratio 18; Blood Urea Nitrogen 14 mg/dL (9-20); Calcium 8.9 mg/dL (8.4-10.2); Hemolysis Index 0
[2018-05-16 08:19] LABS: Anisocytosis 1+; Band Neutrophils # (Manual) 0.7 K/mm3; Basophils % (Manual) 0 % (0.0-1.8); Eosinophils % (Manual) 0 % (0.0-4.3); Large Platelets Few; Total Cells Counted 100
[2018-05-16 08:20] LABS: Platelet Estimate Cons
--- NOTE | 2018-05-16 09:34 | Hem/Onc Progress Note ---
Assessment and Plan Awaiting final pathology. If discharged, would like to see him in my office Subjective Date of service: 05/16/18 Interval history: Continued pain in the abdomen. Events noted. day 4 postop Objective - Constitutional Vitals: Last Vital Signs Temp 98.6 F 05/16/18 07:09 Pulse 125 H 05/16/18 07:10 Resp 20 05/16/18 08:23 BP 132/93 05/16/18 07:10 Pulse Ox 89 05/16/18 07:10 General appearance: severe distress Performance status: 3-limited selfcare - Neck Neck: supple - Respiratory Respiratory effort: Positive: normal - Cardiovascular Rhythm: regular Extremities: No edema - Gastrointestinal General gastrointestinal: Present: other (post op) - Labs Lab Results: Laboratory Results - last 24 hr 05/15/18 05/16/18 05/16/18 07:08 05:04 05:04 WBC 13.6 H RBC 3.89 Hgb 11.2 L Hct 34.0 L MCV 87 MCH 29 MCHC 33 RDW 13.7 Plt Count 153 Add Manual Diff Complete Complete Total Counted 100 100 Seg Neuts % (Manual) 86.0 H 78.0 H Band Neutrophils % 2.0 5.0 Lymphocytes % (Manual) 4.0 L 7.0 L Reactive Lymphs % (Man) 1.0 0 Monocytes % (Manual) 3.0 8.0 H Eosinophils % (Manual) 0 0 Basophils % (Manual) 1.0 0 Metamyelocytes % 1.0 2.0 Myelocytes % 2.0 0 Promyelocytes % 0 0 Blast Cells % 0 0 Nucleated RBC % 1.0 H Not Reportable Seg Neutrophils # Man 10.9 H 10.6 H Band Neutrophils # 0.3 0.7 Lymphocytes # (Manual) 0.5 L 1.0 L Abs React Lymphs (Man) 0.1 0.0 Monocytes # (Manual) 0.4 1.1 H Eosinophils # (Manual) 0.0 0.0 Basophils # (Manual) 0.1 0.0 Metamyelocytes # 0.1 0.3 Myelocytes # 0.3 0.0 Promyelocytes # 0.0 0.0 Blast Cells # 0.0 0.0 WBC Morphology Not Reportable Not Reportable Hypersegmented Neuts Not Reportable Not Reportable Hyposegmented Neuts Not Reportable Not Reportable Hypogranular Neuts Not Reportable Not Reportable Smudge Cells Not Reportable Not Reportable Toxic Granulation Not Reportable Not Reportable Toxic Vacuolation Not Reportable Not Reportable Dohle Bodies Not Reportable Not Reportable Pelger-Huet Anomaly Not Reportable Not Reportable Hayde Rods Not Reportable Not Reportable Platelet Estimate Consistent w auto Cons Clumped Platelets Not Reportable Not Reportable Plt Clumps, EDTA Not Reportable Not Reportable Large Platelets Not Reportable Few Giant Platelets Not Reportable Not Reportable Platelet Satelliting Not Reportable Not Reportable Plt Morphology Comment Not Reportable Not Reportable RBC Morphology Not Reportable Not Reportable Dimorphic RBCs Not Reportable Not Reportable Polychromasia Rare Not Reportable Hypochromasia Not Reportable Not Reportable Poikilocytosis Not Reportable Not Reportable Anisocytosis Not Reportable 1+ Microcytosis Not Reportable Not Reportable Macrocytosis Not Reportable Not Reportable Spherocytes Not Reportable Not Reportable Pappenheimer Bodies Not Reportable Not Reportable Sickle Cells Not Reportable Not Reportable Target Cells Not Reportable Not Reportable Tear Drop Cells Not Reportable Not Reportable Ovalocytes Not Reportable Not Reportable Helmet Cells Not Reportable Not Reportable [place] Bodies Not Reportable Not Reportable [place] Rings Not Reportable Not Reportable [place] Cells Not Reportable Not Reportable Bite Cells Not Reportable Not Reportable Crenated Cell Not Reportable Not Reportable Elliptocytes Not Reportable Not Reportable Acanthocytes (Spur) Not Reportable Not Reportable Rouleaux Not Reportable Not Reportable Hemoglobin C Crystals Not Reportable Not Reportable Schistocytes Rare Not Reportable Malaria parasites Not Reportable Not Reportable Reilly Bodies Not Reportable Not Reportable Hem Pathologist Commnt No No Sodium 136 L Potassium 4.1 Chloride 98.5 Carbon Dioxide 24 Anion Gap 18 BUN 14 Creatinine 0.8 Estimated GFR > 60 BUN/Creatinine Ratio 18 Glucose 97 Calcium 8.9
--- NOTE | 2018-05-16 09:51 | Consultation ---
History of Present Illness - Reason for Consult Consult date: 05/16/18 Celiac stenosis - History of Present Illness Patient presented with a history of abdominal pain was noted to have right sided colon cancer. He is status post right hemicolectomy. He states that his pain at home was not postprandial in nature. 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 Past History Past Medical History: other (gastric ulcers?) Past Surgical History: Other (Exploratory laparotomy for bleeding gastric ulcer) Social history: smoking (marijuana, 1 PPD cigarettes - quit cigarettes 3 weeks ago.). denies: alcohol abuse, prescription drug abuse Family history: cancer (aunt - colon), hypertension Medications and Allergies Allergies Allergy/AdvReac Type Severity Reaction Status Date / Time ibuprofen Allergy Vomiting Verified 04/24/15 10:14 Home Medications Medication Instructions Recorded Confirmed Last Taken Type No Known Home Medications [No 05/04/18 05/04/18 Unknown History Reported Home Medications] Active Meds: Active Medications Acetaminophen (Tylenol) 650 mg PO Q4H PRN PRN Reason: Pain MILD(1-3)/Fever >100.5/CHOUDHURY Last Admin: 05/10/18 09:22 Dose: 650 mg Diazepam (Valium) 5 mg PO Q8HR [facility] Last Admin: 05/16/18 05:05 Dose: 5 mg Enoxaparin Sodium (Lovenox) 40 mg SUB-Q DAILY KAYODE Last Admin: 05/15/18 09:17 Dose: 40 mg Gabapentin (Neurontin) 300 mg PO Q8HR K[facility]ODE Last Admin: 05/16/18 05:05 Dose: 300 mg Hydromorphone HCl (Dilaudid) 1 mg IV Q3H PRN PRN Reason: Pain , Severe (7-10) Last Admin: 05/16/18 03:03 Dose: 1 mg Hydromorphone HCl (Dilaudid) 2 mg PO Q4H PRN PRN Reason: Pain, Moderate (4-6) Last Admin: 05/16/18 08:23 Dose: 2 mg Dextrose/Sodium Chloride (D5/0.45ns) 1,000 mls @ 75 mls/hr IV DIRECT KAYDOE Last Admin: 05/14/18 09:44 Dose: 75 mls/hr Lorazepam (Ativan) 1 mg IV Q4H PRN PRN Reason: Anxiety Last Admin: 05/16/18 00:57 Dose: 1 mg Ondansetron HCl (Zofran) 4 mg IV Q8H PRN PRN Reason: Nausea And Vomiting Last Admin: 05/10/18 01:51 Dose: 4 mg Ondansetron HCl (Zofran) 4 mg IV ONCE PRN PRN Reason: Nausea And Vomiting Sodium Chloride (Sodium Chloride Flush Syringe 10 Ml) 10 ml IV BID KAYODE Last Admin: 05/15/18 22:32 Dose: 10 ml Sodium Chloride (Sodium Chloride Flush Syringe 10 Ml) 10 ml IV PRN PRN PRN Reason: LINE FLUSH Last Admin: 05/12/18 05:08 Dose: 10 ml Zolpidem Tartrate (Ambien) 5 mg PO QHS PRN PRN Reason: Sleep Last Admin: 05/11/18 21:52 Dose: 5 mg Review of Systems All systems: negative Exam - Constitutional Vitals: Temp Pulse Resp BP Pulse Ox 98.6 F 125 H 20 132/93 89 05/16/18 07:09 05/16/18 07:10 05/16/18 08:23 05/16/18 07:10 05/16/18 07:10 General appearance: Present: mild distress - EENT Eyes: Present: PERRL, EOM intact ENT: hearing intact - Neck Neck: Present: supple, normal ROM - Respiratory Respiratory effort: normal - Extremities Extremities: no ischemia - Abdominal General gastrointestinal: Present: soft, non-tender Male genitourinary: Present: deferred - Rectal Rectal Exam: deferred - Psychiatric Psychiatric: appropriate mood/affect, cooperative Results - Labs CBC & Chem 7: 05/16/18 05:04 05/16/18 05:04 Labs: Abnormal lab results 05/15/18 05/16/18 05/16/18 Range/Units 07:08 05:04 05:04 WBC 13.6 H (4.5-11.0) K/mm3 Hgb 11.2 L (11.8-15.2) gm/dl Hct 34.0 L (35.5-45.6) % Seg Neuts % (Manual) 86.0 H 78.0 H (40.0-70.0) % Lymphocytes % (Manual) 4.0 L 7.0 L (13.4-35.0) % Monocytes % (Manual) 8.0 H (0.0-7.3) % Nucleated RBC % 1.0 H (0.0-0.9) % Seg Neutrophils # Man 10.9 H 10.6 H (1.8-7.7) K/mm3 Lymphocytes # (Manual) 0.5 L 1.0 L (1.2-5.4) K/mm3 Monocytes # (Manual) 1.1 H (0.0-0.8) K/mm3 Sodium 136 L (137-145) mmol/L - Imaging and Cardiology CT scan - abdomen: image reviewed Assessment and Plan Patient with median arcuate ligament syndrome. It is unlikely that this is the source of his abdominal pain. He does experience pain which is disproportionate to his presenting symptoms and there may be an element of narcotic seeking involved. Per discussions with the nurses, the patient treats his pain at home with marijuana. Would not intervene in his celiac artery stenosis at this time. If intervention is needed, the patient would need release of his median arcuate ligament surgically prior to stenting of his celiac artery.
[2018-05-16] MEDS: LOVENOX SUB-Q SCH (11:34)
[2018-05-16] MEDS: SODIUM CHLORIDE FLUSH SYRINGE 10 ML IV SCH ×2 (11:37→23:39)
--- NOTE | 2018-05-16 14:47 | Progress Note ---
Assessment and Plan 48 yo M s/p 48 yo M s/p Laparoscopic right hemicolectomy with primary anastamosis, lysis of adhesions, POD 4 for ascending colon cancer Plan: 1. soft diet 2. dc IVF 3. dc abx 4. DVT ppx 5. prn pain control - currently the patient is on dilaudid 4mg PO q4hrs and dilaudid 1 mg IV q3 hrs, PO valium and neurotin 6. back pain could be related to retroperitoneal lymphadenopathy vs mets to the spine - recommend imaging of the back 7. await final path 8. onc following 9. vascular cs appreciated. Median arcuate ligament syndrome but likely not the cause of abdominal pain. 10. trend WBC - if increases tomorrow and abdominal pain persists, will obtain CT A/P with oral and IV contrast D/W Dr. Asencio Thank you for this consultation, please call with questions or concerns. Subjective Date of service: 05/16/18 Narrative: Pt seen and examined. He states that he is in severe pain. He states that this pain is located in his lower back and going up to his neck. He does admit to mild abdominal pain near the midline incision. He has been passing flatus. He denies n/v. No f/c, cp, sob. He states the reason he came to hospital was because of the back pain. He states that IV dilaudid helps with the pain for 15 minutes and then it comes back as 10/10 and sharp. He has been getting OOB and ambulating. Objective Vital Signs - 12hr 05/16/18 05/16/18 05/16/18 04:46 07:09 07:10 Temperature 98.7 F 98.6 F Pulse Rate 127 H 123 H 125 H Respiratory 22 18 Rate Respiratory Rate [Abdomen] Respiratory Rate [Back] Blood Pressure 144/97 132/93 132/93 Blood Pressure [Left] O2 Sat by Pulse 96 92 89 Oximetry 05/16/18 05/16/18 05/16/18 08:20 08:23 09:23 Temperature Pulse Rate Respiratory 20 20 Rate Respiratory 20 Rate [Abdomen] Respiratory 20 Rate [Back] Blood Pressure Blood Pressure [Left] O2 Sat by Pulse Oximetry 05/16/18 05/16/18 05/16/18 11:34 11:45 13:47 Temperature 99.9 F H Pulse Rate 128 H Respiratory 20 18 20 Rate Respiratory Rate [Abdomen] Respiratory Rate [Back] Blood Pressure Blood Pressure 153/93 [Left] O2 Sat by Pulse 86 Oximetry - General physical appearance Narrative Exam: Gen: AAOx3. CV: S1, S2+ tachy resp: even and unlabored Abd: soft, ND, +TTP near midline incision below the umbilicus. Midline incision with ecchymosis and small hematoma. Other laparoscopic incisions c/d/i Ext: no c/c/e Musculoskeletal: + TTP of left paraspinal muscles and spinous processes of lower cervical spine. - Labs 05/16/18 05:04 05/16/18 05:04 Diabetes panel 05/16/18 Range/Units 05:04 Sodium 136 L (137-145) mmol/L Potassium 4.1 (3.6-5.0) mmol/L Chloride 98.5 (98-107) mmol/L Carbon Dioxide 24 (22-30) mmol/L BUN 14 (9-20) mg/dL Creatinine 0.8 (0.8-1.5) mg/dL Glucose 97 (75-100) mg/dL Calcium 8.9 (8.4-10.2) mg/dL Calcium panel 05/16/18 Range/Units 05:04 Calcium 8.9 (8.4-10.2) mg/dL Pituitary panel 05/16/18 Range/Units 05:04 Sodium 136 L (137-145) mmol/L Potassium 4.1 (3.6-5.0) mmol/L Chloride 98.5 (98-107) mmol/L Carbon Dioxide 24 (22-30) mmol/L BUN 14 (9-20) mg/dL Creatinine 0.8 (0.8-1.5) mg/dL Glucose 97 (75-100) mg/dL Calcium 8.9 (8.4-10.2) mg/dL Adrenal panel 05/16/18 Range/Units 05:04 Sodium 136 L (137-145) mmol/L Potassium 4.1 (3.6-5.0) mmol/L Chloride 98.5 (98-107) mmol/L Carbon Dioxide 24 (22-30) mmol/L BUN 14 (9-20) mg/dL Creatinine 0.8 (0.8-1.5) mg/dL Glucose 97 (75-100) mg/dL Calcium 8.9 (8.4-10.2) mg/dL
[2018-05-16] MEDS: ZOFRAN IV PRN (20:27)
--- NOTE | 2018-05-16 23:30 | Progress Note ---
Assessment and Plan /Colonic mass. - GI consulted. Colonoscopy done 05/06 revealed a mass in ascending colon. - Biopsy showed poorly differentiated carcinoma. - Consult surgery for possible resection, - s/p Laparoscopic right hemicolectomy with primary anastamosis, lysis of adhesions on 05/12 - tolerating diet, adjust pain meds - Ordered MRI spine for possible metastasis /Abdominal Lymphadenopathy. Probably from colon cancer too Oncology following /Chest pain, atypical Likely from GERD Stress test normal. /History of gastric ulcer, cont PPI DVT prophylaxis with SCDs only. Full code status disposition: when clears by surgery Brief History 48 yo M with partially obstructing R sided colon mass, retroperitoneal and bilateral hilar lymphadenopathy. 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 Hospitalist Physical General: Not in acute distress, lying in bed,obese HEENT:Normocephalic, atraumatic Neck:supple,no JVD Lungs: Clear to auscultation bilaterally, no crackles, no wheeze Heart:S1 and S2 regular, no murmurs, rubs or gallop Abd: soft, mild diffuse tenderness, sBS +ve Ext: No edema, no clubbing, no cyanosis Neuro: AAO x 3, moves all extremities. Subjective Date of service: 05/16/18 Principal diagnosis: colon mass, lymphadenopathy Interval history: Pt seen and examined continue to c/o worsening back/abdominal pain tolerating diet, discussed with pt at bedside s/p surgery 05/12/18 Objective - Constitutional Vitals: Vital Signs - 12hr 05/16/18 05/16/18 05/16/18 11:34 11:45 12:04 Temperature 99.9 F H Pulse Rate 128 H Respiratory 20 18 20 Rate Blood Pressure Blood Pressure 153/93 [Left] O2 Sat by Pulse 86 Oximetry 05/16/18 05/16/18 05/16/18 13:47 14:47 15:00 Temperature 97.9 F Pulse Rate 129 H Respiratory 20 18 20 Rate Blood Pressure Blood Pressure 139/93 [Left] O2 Sat by Pulse 94 Oximetry 05/16/18 19:35 Temperature 97.5 F L Pulse Rate 133 H Respiratory 22 Rate Blood Pressure 129/96 Blood Pressure [Left] O2 Sat by Pulse 96 Oximetry - Labs CBC & Chem 7: 05/16/18 05:04 05/16/18 05:04 Labs: Abnormal lab results 05/16/18 05/16/18 Range/Units 05:04 05:04 WBC 13.6 H (4.5-11.0) K/mm3 Hgb 11.2 L (11.8-15.2) gm/dl Hct 34.0 L (35.5-45.6) % Seg Neuts % (Manual) 78.0 H (40.0-70.0) % Lymphocytes % (Manual) 7.0 L (13.4-35.0) % Monocytes % (Manual) 8.0 H (0.0-7.3) % Seg Neutrophils # Man 10.6 H (1.8-7.7) K/mm3 Lymphocytes # (Manual) 1.0 L (1.2-5.4) K/mm3 Monocytes # (Manual) 1.1 H (0.0-0.8) K/mm3 Sodium 136 L (137-145) mmol/L
[2018-05-17] MEDS: ATIVAN IV PRN ×2 (01:24→11:18)
[2018-05-17] MEDS: DILAUDID IV PRN ×5 (03:37→21:16)
[2018-05-17 05:07] LABS: Hematocrit 36.2 % (35.5-45.6); Mean Corpuscular HGB Conc 33 % (32-34); Mean Corpuscular Hemoglobin 29 pg (28-32); Mean Corpuscular Volume 87 fl (84-94); Platelet Count 178 K/mm3 (140-440); Red Blood Count 4.16 M/mm3 (3.65-5.03)
[2018-05-17] MEDS: VALIUM PO SCH ×3 (05:33→22:30)
[2018-05-17] MEDS: NEURONTIN PO SCH ×3 (05:33→22:29)
[2018-05-17] MEDS: D5/0.45NS 1,000 ML IV SCH (05:34)
[2018-05-17 05:41] LABS: BUN/Creatinine Ratio 21; Blood Urea Nitrogen 17 mg/dL (9-20); Calcium 8.9 mg/dL (8.4-10.2); Hemolysis Index 0
--- NOTE | 2018-05-17 09:09 | Hem/Onc Progress Note ---
Assessment and Plan Awaiting pathology. MRI also ordered. We will follow. Subjective Date of service: 05/17/18 Interval history: Feels better. On pain meds and on benzos. Events noted. day 4 postop Objective - Constitutional Vitals: Last Vital Signs Temp 99.3 F 05/17/18 07:57 Pulse 121 H 05/17/18 07:57 Resp 18 05/17/18 07:57 BP 129/94 05/17/18 07:57 Pulse Ox 96 05/17/18 07:57 - Neck Neck: supple - Respiratory Respiratory effort: Positive: normal - Cardiovascular Rhythm: regular - Gastrointestinal General gastrointestinal: Present: distended (slight) - Labs Lab Results: Laboratory Results - last 24 hr 05/17/18 05/17/18 04:18 04:18 WBC 16.5 H RBC 4.16 Hgb 12.0 Hct 36.2 MCV 87 MCH 29 MCHC 33 RDW 14.0 Plt Count 178 Sodium 134 L Potassium 4.4 Chloride 93.5 L Carbon Dioxide 27 Anion Gap 18 BUN 17 Creatinine 0.8 Estimated GFR > 60 BUN/Creatinine Ratio 21 Glucose 138 H Calcium 8.9
[2018-05-17] MEDS: LOVENOX SUB-Q SCH (09:36)
[2018-05-17] MEDS: SODIUM CHLORIDE FLUSH SYRINGE 10 ML IV SCH (09:43)
[2018-05-17] MEDS: DILAUDID PO PRN (11:18)
--- NOTE | 2018-05-17 14:40 | Cat Scan Report ---
CTA CHEST: HISTORY: Tachycardia, postop patient, rule out PE. COMPARISON: 05/04/18. TECHNIQUE: Helical CT in 1.25mm intervals following IV contrast. Pulmonary embolus protocol. Sagittal and coronal reformatted images. Rotational MIP images. FINDINGS: Contrast bolus is satisfactory. No pulmonary embolus is identified. Thyroid gland: Normal. Tracheobronchial tree: Normal. Esophagus: Normal. Heart: Normal. Pericardium: Normal. Mediastinum: There are mildly enlarged lymph nodes in the right paratracheal chain, subcarinal chain and bilateral hilar chains. One of the largest lymph nodes measures 2.4 x 1.7 cm in the subcarinal chain. Lung Sal: There is moderate bilateral pulmonary venous congestion and interstitial edema. Mild compressive atelectasis at the lung bases, left greater than right. No evidence for pneumonia or mass. Pleural Spaces: Trace right pleural effusion and small to medium left pleural effusion layered posteriorly. Musculoskeletal: Normal. IMPRESSION: No evidence for pulmonary embolus. Moderate bilateral pulmonary venous congestion and small pleural effusions as described. Mediastinal adenopathy of uncertain origin.
--- NOTE | 2018-05-17 14:50 | Event Note ---
Date: 05/17/18 Attempted to see patient earlier today but was down for imaging studies ordered this am. CT chest ordered to r/o PE secondary to post operative persistent tachycardia. Ct A/P ordered to r/o leak due to increasing WBC and abdominal pain. Will follow up on imaging and see patient.
--- NOTE | 2018-05-17 14:51 | Cat Scan Report ---
CT ABDOMEN PELVIS WITH CONTRAST: HISTORY: abdominal pain, postop, rule out leak. COMPARISON: none. TECHNIQUE: Helical CT in 1.25mm intervals following IV contrast. Sagittal and coronal reconstructions. FINDINGS: Liver: Normal. Biliary system: Normal. Pancreas: Normal. Spleen: Normal. Kidneys/ureters/bladder: Normal. Adrenal glands: Normal. Aorta: Normal. Intestines: There are multiple dilated small bowel loops with moderate fluid. Terminal small bowel loops and colon appear decompressed. A surgical suture line is noted in the right abdomen. With history of recent surgery, an ileus could be considered but I cannot exclude a small bowel obstruction. There is no obvious leak. Appendix: Not confidently identified. Ascites: Small pelvic ascites. Adenopathy: None. Musculoskeletal: Normal. IMPRESSION: Dilated loops of small bowel as described above concerning for partial small bowel obstruction. Please correlate with the patient's clinical presentation.
--- NOTE | 2018-05-17 15:04 | Progress Note ---
Assessment and Plan 48 yo M s/p 48 yo M s/p Laparoscopic right hemicolectomy with primary anastamosis, lysis of adhesions, POD [address] cancer [address] A/P, Chest reviewed - no PE. Distended stomach and small bowel loops - ileus vs pSBO, NO LEAK Plan: 1. NPO, likely has ileus from surgery. 2. start D5NS@125cc/hr 3. 18F NGT placed in right nare - >700cc of green output immediately. Continue NGT to LCWS 4. DVT ppx 5. prn pain control 6. back pain could be related to retroperitoneal lymphadenopathy vs mets to the spine -MRI lumbar performed and report pending. Patient could not tolerate MRI tspine, will be attempted tomorrow. 7. await final path 8. onc following 9. trend WBC 10. await bowel function Please call with questions or concerns. Subjective Date of service: 05/17/18 Narrative: Pt seen and examined. Sleepy from ativan and pain medications given earlier. He c/o abdominal incisional pain and back pain. He states he feels nauseated but has not vomited. No f/c. HR remains elevated. Has been passing flatus but no BM. Objective Vital Signs - 12hr 05/17/18 05/17/18 05/17/18 03:20 07:57 09:52 Temperature 99.1 F 99.3 F Pulse Rate 139 H 121 H Respiratory 22 18 Rate Blood Pressure 128/96 129/94 O2 Sat by Pulse 95 96 96 Oximetry - General physical appearance Narrative Exam: Gen: Awake and arousable, falls asleep easily. NAD. When aroused, follows commands and answers questions appropriately CV: S1, S2+ tachy Resp: even and unlabored Abd: soft, distended, mildly TTP near incisions. Ecchymosis, hematoma at midline incision is stable. Incisions c/d/i. +tympanitic on percussion Ext: no c/c/e - Labs 05/17/18 04:18 05/17/18 04:18 Diabetes panel 05/17/18 Range/Units 04:18 Sodium 134 L (137-145) mmol/L Potassium 4.4 (3.6-5.0) mmol/L Chloride 93.5 L (98-107) mmol/L Carbon Dioxide 27 (22-30) mmol/L BUN 17 (9-20) mg/dL Creatinine 0.8 (0.8-1.5) mg/dL Glucose 138 H (75-100) mg/dL Calcium 8.9 (8.4-10.2) mg/dL Calcium panel 05/17/18 Range/Units 04:18 Calcium 8.9 (8.4-10.2) mg/dL Pituitary panel 05/17/18 Range/Units 04:18 Sodium 134 L (137-145) mmol/L Potassium 4.4 (3.6-5.0) mmol/L Chloride 93.5 L (98-107) mmol/L Carbon Dioxide 27 (22-30) mmol/L BUN 17 (9-20) mg/dL Creatinine 0.8 (0.8-1.5) mg/dL Glucose 138 H (75-100) mg/dL Calcium 8.9 (8.4-10.2) mg/dL Adrenal panel 05/17/18 Range/Units 04:18 Sodium 134 L (137-145) mmol/L Potassium 4.4 (3.6-5.0) mmol/L Chloride 93.5 L (98-107) mmol/L Carbon Dioxide 27 (22-30) mmol/L BUN 17 (9-20) mg/dL Creatinine 0.8 (0.8-1.5) mg/dL Glucose 138 H (75-100) mg/dL Calcium 8.9 (8.4-10.2) mg/dL
[2018-05-17] MEDS ORDERED: CHLORASEPTIC MM PRN (16:15)
--- NOTE | 2018-05-17 16:48 | Magnetic Resonance Report ---
MRI LUMBAR SPINE WITHOUT AND WITH CONTRAST: 05/17/18 CLINICAL: Colon carcinoma. Back pain. TECHNIQUE: Sagittal and axial T1 and T2, sagittal STIR and sagittal and axial postcontrast T1 fat sat sequences a 1.5 Stephanie magnet. 15.0 cc of Multihance was injected intravenously for the contrast portion of the exam and consent was obtained prior to the administration of the contrast. FINDINGS: Normal vertebral height, alignment and disc spaces. The marrow signal is diffusely abnormal with heterogeneous signal on all sequences. This involves all of the vertebral bodies as well as the sacrum and imaged pelvic bones. Heterogeneous enhancing lesions involving essentially all vertebral bodies, the mid sacrum, right sacrum and bilateral iliac bones. The left ischium demonstrate particularly brisk enhancement when compared to other lesions. Many lesions throughout the spine are hypointense on all sequences and demonstrate no enhancement. No fracture. The conus medullaris is normal normal and terminates at L1. No canal mass or enhancing lesion. Degenerative disc disease at L4-5 and L5-S1 with circumferential disc bulges and posterior disc-osteophytes. Bilateral facet hypertrophy at L4-5 and L5-S1 and moderate left neural foraminal stenosis at L4-5. No soft tissue masses. IMPRESSION: 1. Diffuse skeletal metastasis with involvement at all vertebral levels, the sacrum and bilateral iliac bones. 2. No spinal canal lesion. 3. No fracture. 4. Degenerative disc disease at L4-5 with disc bulges and osteophytes.
--- NOTE | 2018-05-17 17:15 | Progress Note ---
Assessment and Plan Assessment and plan: 48-year-old -[place] male presents with chest pain radiating to the back for past 2 days. Patient also has intermittent abdominal pain /obstructive Colonic mass. - GI consulted. Colonoscopy done 05/06 revealed a mass in ascending colon. - Biopsy showed poorly differentiated carcinoma. - s/p Laparoscopic right hemicolectomy with primary anastamosis, lysis of adhesions on 05/12 - likely has Ileus, expected outcome of surgery; conservative mgt, awaiting return of bowel function - Ordered MRI spine for possible metastasis /Abdominal Lymphadenopathy. Probably from colon cancer Oncology following /Chest pain, atypical Likely from GERD Stress test normal. /History of gastric ulcer, cont PPI DVT prophylaxis with SCDs only. Full code status History Interval history: Review of systems Constitutional: No fevers, no malaise, no joint pains CVS: No chest pain, no orthopnea, no dyspnea on exertion, no pedal edema GI: No abdominal pain, no diarrhea, no vomiting, no constipation Respiratory: No shortness of breath, no wheezing, no coughing Hospitalist Physical - Physical exam Narrative exam: General.: Appears well, no distress, nontoxic HEENT: Moist mucous membranes, extraocular muscles intact, no lymphadenopathy Neck: supple Cardiac: S1-S2 heard Lungs: clear to auscultation bilaterally Abdomen: soft , nontender, nondistended, bowel sounds positive Extremities: no edema clubbing or cyanosis Skin: no rash or lesions Neurologic: no gross focal deficits Psych: appropriate behavior, appropriate mood, corporative, judgment intact - Constitutional Vitals: Temp Pulse Resp BP Pulse Ox 98.4 F 130 H 18 155/98 80 L 05/17/18 16:16 05/17/18 16:16 05/17/18 16:16 05/17/18 16:16 05/17/18 16:16 General appearance: Present: mild distress Results - Labs CBC & Chem 7: 05/17/18 04:18 05/17/18 04:18 Labs: Laboratory Last Values WBC 16.5 K/mm3 (4.5-11.0) H 05/17/18 04:18 RBC 4.16 M/mm3 (3.65-5.03) 05/17/18 04:18 Hgb 12.0 gm/dl (11.8-15.2) 05/17/18 04:18 Hct 36.2 % (35.5-45.6) 05/17/18 04:18 MCV 87 fl (84-94) 05/17/18 04:18 MCH 29 pg (28-32) 05/17/18 04:18 MCHC 33 % (32-34) 05/17/18 04:18 RDW 14.0 % (13.2-15.2) 05/17/18 04:18 Plt Count 178 K/mm3 (140-440) 05/17/18 04:18 Lymph % (Auto) 14.2 % (13.4-35.0) 05/04/18 11:31 [place] % (Auto) [employer] 05/05/18 06:32 Eos % (Auto) 1.4 % (0.0-4.3) 05/04/18 11:31 Baso % (Auto) 0.9 % (0.0-1.8) 05/04/18 11:31 Lymph # 1.4 K/mm3 (1.2-5.4) 05/04/18 11:31 [place] # 1.3 K/mm3 (0.0-0.8) H 05/04/18 11:31 Eos # 0.1 K/mm3 (0.0-0.4) 05/04/18 11:31 Baso # 0.1 K/mm3 (0.0-0.1) 05/04/18 11:31 Add Manual Diff Complete 05/16/18 05:04 Total Counted 100 05/16/18 05:04 Seg Neutrophils % 71.1 % (40.0-70.0) H 05/04/18 11:31 Seg Neuts % (Manual) 78.0 % (40.0-70.0) H 05/16/18 05:04 Band Neutrophils % 5.0 % 05/16/18 05:04 Lymphocytes % (Manual) 7.0 % (13.4-35.0) L 05/16/18 05:04 Reactive Lymphs % (Man) 0 % 05/16/18 05:04 Monocytes % (Manual) 8.0 % (0.0-7.3) H 05/16/18 05:04 Eosinophils % (Manual) 0 % (0.0-4.3) 05/16/18 05:04 Basophils % (Manual) 0 % (0.0-1.8) 05/16/18 05:04 Metamyelocytes % 2.0 % 05/16/18 05:04 Myelocytes % 0 % 05/16/18 05:04 Promyelocytes % 0 % 05/16/18 05:04 Blast Cells % 0 % 05/16/18 05:04 Nucleated RBC % Not Reportable 05/16/18 05:04 Seg Neutrophils # 7.2 K/mm3 (1.8-7.7) 05/04/18 11:31 Seg Neutrophils # Man 10.6 K/mm3 (1.8-7.7) H 05/16/18 05:04 Band Neutrophils # 0.7 K/mm3 05/16/18 05:04 Lymphocytes # (Manual) 1.0 K/mm3 (1.2-5.4) L 05/16/18 05:04 Abs React Lymphs (Man) 0.0 K/mm3 05/16/18 05:04 Monocytes # (Manual) 1.1 K/mm3 (0.0-0.8) H 05/16/18 05:04 Eosinophils # (Manual) 0.0 K/mm3 (0.0-0.4) 05/16/18 05:04 Basophils # (Manual) 0.0 K/mm3 (0.0-0.1) 05/16/18 05:04 Metamyelocytes # 0.3 K/mm3 05/16/18 05:04 Myelocytes # 0.0 K/mm3 05/16/18 05:04 Promyelocytes # 0.0 K/mm3 05/16/18 05:04 Blast Cells # 0.0 K/mm3 05/16/18 05:04 WBC Morphology Not Reportable 05/16/18 05:04 Hypersegmented Neuts Not Reportable 05/16/18 05:04 Hyposegmented Neuts Not Reportable 05/16/18 05:04 Hypogranular Neuts Not Reportable 05/16/18 05:04 Smudge Cells Not Reportable 05/16/18 05:04 Toxic Granulation Not Reportable 05/16/18 05:04 Toxic Vacuolation Not Reportable 05/16/18 05:04 Dohle Bodies Not Reportable 05/16/18 05:04 Pelger-Huet Anomaly Not Reportable 05/16/18 05:04 Hayde Rods Not Reportable 05/16/18 05:04 Platelet Estimate Cons 05/16/18 05:04 Clumped Platelets Not Reportable 05/16/18 05:04 Plt Clumps, EDTA Not Reportable 05/16/18 05:04 Large Platelets Few 05/16/18 05:04 Giant Platelets Not Reportable 05/16/18 05:04 Platelet Satelliting Not Reportable 05/16/18 05:04 Plt Morphology Comment Not Reportable 05/16/18 05:04 RBC Morphology Not Reportable 05/16/18 05:04 Dimorphic RBCs Not Reportable 05/16/18 05:04 Polychromasia Not Reportable 05/16/18 05:04 Hypochromasia Not Reportable 05/16/18 05:04 Poikilocytosis Not Reportable 05/16/18 05:04 Anisocytosis 1+ 05/16/18 05:04 Microcytosis Not Reportable 05/16/18 05:04 Macrocytosis Not Reportable 05/16/18 05:04 Spherocytes Not Reportable 05/16/18 05:04 Pappenheimer Bodies Not Reportable 05/16/18 05:04 Sickle Cells Not Reportable 05/16/18 05:04 Target Cells Not Reportable 05/16/18 05:04 Tear Drop Cells Not Reportable 05/16/18 05:04 Ovalocytes Not Reportable 05/16/18 05:04 Helmet Cells Not Reportable 05/16/18 05:04 [place] Bodies Not Reportable 05/16/18 05:04 [place] Rings Not Reportable 05/16/18 05:04 [place] Cells Not Reportable 05/16/18 05:04 Bite Cells Not Reportable 05/16/18 05:04 Crenated Cell Not Reportable 05/16/18 05:04 Elliptocytes Not Reportable 05/16/18 05:04 Acanthocytes (Spur) Not Reportable 05/16/18 05:04 Rouleaux Not Reportable 05/16/18 05:04 Hemoglobin C Crystals Not Reportable 05/16/18 05:04 Schistocytes Not Reportable 05/16/18 05:04 Malaria parasites Not Reportable 05/16/18 05:04 Reilly Bodies Not Reportable 05/16/18 05:04 Hem Pathologist Commnt No 05/16/18 05:04 PT 13.9 Sec. (12.2-14.9) 05/04/18 11:31 INR 1.02 (0.87-1.13) 05/04/18 11:31 APTT 29.9 Sec. (24.2-36.6) 05/04/18 11:31 D-Dimer 5221.96 ng/mlDDU (0-234) H 05/04/18 11:31 Sodium 134 mmol/L (137-145) L 05/17/18 04:18 Potassium 4.4 mmol/L (3.6-5.0) 05/17/18 04:18 Chloride 93.5 mmol/L (98-107) L 05/17/18 04:18 Carbon Dioxide 27 mmol/L (22-30) 05/17/18 04:18 Anion Gap 18 mmol/L 05/17/18 04:18 BUN 17 mg/dL (9-20) 05/17/18 04:18 Creatinine 0.8 mg/dL (0.8-1.5) 05/17/18 04:18 Estimated GFR > 60 ml/min 05/17/18 04:18 BUN/Creatinine Ratio 21 % 05/17/18 04:18 Glucose 138 mg/dL (75-100) H 05/17/18 04:18 POC Glucose 162 (70-105) H 05/12/18 20:08 Hemoglobin A1c 6.1 % (4-6) H 05/04/18 18:02 Calcium 8.9 mg/dL (8.4-10.2) 05/17/18 04:18 Magnesium 2.20 mg/dL (1.7-2.3) 05/04/18 11:31 Total Bilirubin 0.30 mg/dL (0.1-1.2) 05/05/18 06:32 AST 18 units/L (5-40) 05/05/18 06:32 ALT 11 units/L (7-56) 05/05/18 06:32 Alkaline Phosphatase 123 units/L (35-129) 05/05/18 06:32 Total Creatine Kinase 375 units/L (55-170) H 05/04/18 11:31 CK-MB (CK-2) 2.8 ng/mL (0.0-4.0) 05/04/18 11:31 CK-MB (CK-2) Rel Index 0.7 (0-4) 05/04/18 11:31 Troponin T < 0.010 ng/mL (0.00-0.029) 05/05/18 06:32 NT-Pro-B Natriuret Pep 84.11 pg/mL (0-450) 05/04/18 11:31 Total Protein 6.6 g/dL (6.3-8.2) 05/05/18 06:32 Albumin 3.2 g/dL (3.9-5) L 05/05/18 06:32 Albumin/Globulin Ratio 0.9 % 05/05/18 06:32 Lipase 13 units/L (13-60) 05/04/18 11:31 Angiotensin Convert Enz See scanned result 05/05/18 06:32 Carcinoembryonic Ag See scanned result 05/05/18 12:29 Urine Color Yellow (Yellow) 05/04/18 Unknown Urine Turbidity Clear (Clear) 05/04/18 Unknown Urine pH 5.0 (5.0-7.0) 05/04/18 Unknown Ur Specific [place] 1.026 (1.003-1.030) 05/04/18 Unknown Urine Protein <15 mg/dl mg/dL (Negative) 05/04/18 Unknown Urine Glucose (UA) Neg mg/dL (Negative) 05/04/18 Unknown Urine Ketones Tr mg/dL (Negative) 05/04/18 Unknown Urine Blood Neg (Negative) 05/04/18 Unknown Urine Nitrite Neg (Negative) 05/04/18 Unknown Urine Bilirubin Neg (Negative) 05/04/18 Unknown Urine Urobilinogen < 2.0 mg/dL (<2.0) 05/04/18 Unknown Ur Leukocyte Esterase Neg (Negative) 05/04/18 Unknown Urine WBC (Auto) 3.0 /HPF (0.0-6.0) 05/04/18 Unknown Urine RBC (Auto) 3.0 /HPF (0.0-6.0) 05/04/18 Unknown U Epithel Cells (Auto) < 1.0 /HPF (0-13.0) 05/04/18 Unknown Urine Bacteria (Auto) 1+ /HPF (Negative) 05/04/18 Unknown Urine Mucus 1+ /HPF 05/04/18 Unknown Urine Opiates Screen Presumptive negative 05/04/18 Unknown Urine Methadone Screen Presumptive negative 05/04/18 Unknown Ur Barbiturates Screen Presumptive negative 05/04/18 Unknown Ur Phencyclidine Scrn Presumptive negative 05/04/18 Unknown Ur Amphetamines Screen Presumptive negative 05/04/18 Unknown U Benzodiazepines Scrn Presumptive negative 05/04/18 Unknown Urine Cocaine Screen Presumptive negative 05/04/18 Unknown U Marijuana (THC) Screen Presumptive positive 05/04/18 Unknown Drugs of Abuse Note Disclamer 05/04/18 Unknown Blood Type O POSITIVE 05/12/18 06:20 Antibody Screen Negative 05/12/18 06:20
[2018-05-17] MEDS: D5NS 1,000 ML IV SCH (18:15)
[2018-05-18] MEDS: DILAUDID IV PRN ×6 (01:06→22:48)
[2018-05-18] MEDS ORDERED: TYLENOL PR ONE (02:20)
[2018-05-18] MEDS: D5NS 1,000 ML IV SCH ×2 (03:12→12:13)
[2018-05-18] MEDS: ATIVAN IV PRN ×3 (03:18→16:53)
[2018-05-18 06:51] LABS: Hematocrit 31.3 % (35.5-45.6); Hemoglobin 10.5 gm/dl (11.8-15.2); Mean Corpuscular HGB Conc 34 % (32-34); Mean Corpuscular Hemoglobin 29 pg (28-32); Mean Corpuscular Volume 87 fl (84-94); Platelet Count 162 K/mm3 (140-440); Red Blood Count 3.62 M/mm3 (3.65-5.03)
[2018-05-18 07:10] LABS: BUN/Creatinine Ratio 23; Blood Urea Nitrogen 16 mg/dL (9-20); Calcium 8.7 mg/dL (8.4-10.2); Hemolysis Index 0
[2018-05-18] MEDS: NEURONTIN PO SCH ×3 (07:24→21:55)
[2018-05-18] MEDS: VALIUM PO SCH ×3 (07:24→23:06)
[2018-05-18] MEDS: SODIUM CHLORIDE FLUSH SYRINGE 10 ML IV SCH ×3 (07:47→22:58)
--- NOTE | 2018-05-18 08:52 | Progress Note ---
Assessment and Plan Assessment and plan: 48-year-old -[place] male presents with chest pain radiating to the back for past 2 days. Patient also has intermittent abdominal pain /obstructive Colonic mass. - GI consulted. Colonoscopy done 05/06 revealed a mass in ascending colon. - Biopsy showed poorly differentiated carcinoma. - s/p Laparoscopic right hemicolectomy with primary anastamosis, lysis of adhesions on 05/12 - likely has Ileus, expected outcome of surgery; conservative mgt, awaiting return of bowel function - Ordered MRI spine for possible metastasis /Abdominal Lymphadenopathy. Probably from colon cancer Oncology following /Chest pain, atypical Likely from GERD Stress test normal. Tachycardia; obtain 12 lead EKG, cta neg for PE Pulmonary venous congestion on imaging but is asymptomatic; will reduce IVF rate /History of gastric ulcer, cont PPI DVT prophylaxis with SCDs only. Full code status Hospitalist Physical - Constitutional Vitals: Temp Pulse Resp BP Pulse Ox 98.5 F 132 H 20 134/86 100 05/18/18 07:30 05/18/18 07:30 05/18/18 07:52 05/18/18 07:30 05/18/18 07:30 General appearance: Present: mild distress Results - Labs CBC & Chem 7: 05/18/18 06:26 05/18/18 06:26 Labs: Laboratory Last Values WBC 12.9 K/mm3 (4.5-11.0) H 05/18/18 06:26 RBC 3.62 M/mm3 (3.65-5.03) L 05/18/18 06:26 Hgb 10.5 gm/dl (11.8-15.2) L 05/18/18 06:26 Hct 31.3 % (35.5-45.6) L 05/18/18 06:26 MCV 87 fl (84-94) 05/18/18 06:26 MCH 29 pg (28-32) 05/18/18 06:26 MCHC 34 % (32-34) 05/18/18 06:26 RDW 14.0 % (13.2-15.2) 05/18/18 06:26 Plt Count 162 K/mm3 (140-440) 05/18/18 06:26 Lymph % (Auto) 14.2 % (13.4-35.0) 05/04/18 11:31 [place] % (Auto) [employer] 05/05/18 06:32 Eos % (Auto) 1.4 % (0.0-4.3) 05/04/18 11:31 Baso % (Auto) 0.9 % (0.0-1.8) 05/04/18 11:31 Lymph # 1.4 K/mm3 (1.2-5.4) 05/04/18 11:31 [place] # 1.3 K/mm3 (0.0-0.8) H 05/04/18 11:31 Eos # 0.1 K/mm3 (0.0-0.4) 05/04/18 11:31 Baso # 0.1 K/mm3 (0.0-0.1) 05/04/18 11:31 Add Manual Diff Complete 05/16/18 05:04 Total Counted 100 05/16/18 05:04 Seg Neutrophils % 71.1 % (40.0-70.0) H 05/04/18 11:31 Seg Neuts % (Manual) 78.0 % (40.0-70.0) H 05/16/18 05:04 Band Neutrophils % 5.0 % 05/16/18 05:04 Lymphocytes % (Manual) 7.0 % (13.4-35.0) L 05/16/18 05:04 Reactive Lymphs % (Man) 0 % 05/16/18 05:04 Monocytes % (Manual) 8.0 % (0.0-7.3) H 05/16/18 05:04 Eosinophils % (Manual) 0 % (0.0-4.3) 05/16/18 05:04 Basophils % (Manual) 0 % (0.0-1.8) 05/16/18 05:04 Metamyelocytes % 2.0 % 05/16/18 05:04 Myelocytes % 0 % 05/16/18 05:04 Promyelocytes % 0 % 05/16/18 05:04 Blast Cells % 0 % 05/16/18 05:04 Nucleated RBC % Not Reportable 05/16/18 05:04 Seg Neutrophils # 7.2 K/mm3 (1.8-7.7) 05/04/18 11:31 Seg Neutrophils # Man 10.6 K/mm3 (1.8-7.7) H 05/16/18 05:04 Band Neutrophils # 0.7 K/mm3 05/16/18 05:04 Lymphocytes # (Manual) 1.0 K/mm3 (1.2-5.4) L 05/16/18 05:04 Abs React Lymphs (Man) 0.0 K/mm3 05/16/18 05:04 Monocytes # (Manual) 1.1 K/mm3 (0.0-0.8) H 05/16/18 05:04 Eosinophils # (Manual) 0.0 K/mm3 (0.0-0.4) 05/16/18 05:04 Basophils # (Manual) 0.0 K/mm3 (0.0-0.1) 05/16/18 05:04 Metamyelocytes # 0.3 K/mm3 05/16/18 05:04 Myelocytes # 0.0 K/mm3 05/16/18 05:04 Promyelocytes # 0.0 K/mm3 05/16/18 05:04 Blast Cells # 0.0 K/mm3 05/16/18 05:04 WBC Morphology Not Reportable 05/16/18 05:04 Hypersegmented Neuts Not Reportable 05/16/18 05:04 Hyposegmented Neuts Not Reportable 05/16/18 05:04 Hypogranular Neuts Not Reportable 05/16/18 05:04 Smudge Cells Not Reportable 05/16/18 05:04 Toxic Granulation Not Reportable 05/16/18 05:04 Toxic Vacuolation Not Reportable 05/16/18 05:04 Dohle Bodies Not Reportable 05/16/18 05:04 Pelger-Huet Anomaly Not Reportable 05/16/18 05:04 Hayde Rods Not Reportable 05/16/18 05:04 Platelet Estimate Cons 05/16/18 05:04 Clumped Platelets Not Reportable 05/16/18 05:04 Plt Clumps, EDTA Not Reportable 05/16/18 05:04 Large Platelets Few 05/16/18 05:04 Giant Platelets Not Reportable 05/16/18 05:04 Platelet Satelliting Not Reportable 05/16/18 05:04 Plt Morphology Comment Not Reportable 05/16/18 05:04 RBC Morphology Not Reportable 05/16/18 05:04 Dimorphic RBCs Not Reportable 05/16/18 05:04 Polychromasia Not Reportable 05/16/18 05:04 Hypochromasia Not Reportable 05/16/18 05:04 Poikilocytosis Not Reportable 05/16/18 05:04 Anisocytosis 1+ 05/16/18 05:04 Microcytosis Not Reportable 05/16/18 05:04 Macrocytosis Not Reportable 05/16/18 05:04 Spherocytes Not Reportable 05/16/18 05:04 Pappenheimer Bodies Not Reportable 05/16/18 05:04 Sickle Cells Not Reportable 05/16/18 05:04 Target Cells Not Reportable 05/16/18 05:04 Tear Drop Cells Not Reportable 05/16/18 05:04 Ovalocytes Not Reportable 05/16/18 05:04 Helmet Cells Not Reportable 05/16/18 05:04 Gómez-[place]iffd[place] Bodies Not Reportable 05/16/18 05:04 [place] Rings Not Reportable 05/16/18 05:04 [place] Cells Not Reportable 05/16/18 05:04 Bite Cells Not Reportable 05/16/18 05:04 Crenated Cell Not Reportable 05/16/18 05:04 Elliptocytes Not Reportable 05/16/18 05:04 Acanthocytes (Spur) Not Reportable 05/16/18 05:04 Rouleaux Not Reportable 05/16/18 05:04 Hemoglobin C Crystals Not Reportable 05/16/18 05:04 Schistocytes Not Reportable 05/16/18 05:04 Malaria parasites Not Reportable 05/16/18 05:04 Reilly Bodies Not Reportable 05/16/18 05:04 Hem Pathologist Commnt No 05/16/18 05:04 PT 13.9 Sec. (12.2-14.9) 05/04/18 11:31 INR 1.02 (0.87-1.13) 05/04/18 11:31 APTT 29.9 Sec. (24.2-36.6) 05/04/18 11:31 D-Dimer 5221.96 ng/mlDDU (0-234) H 05/04/18 11:31 Sodium 136 mmol/L (137-145) L 05/18/18 06:26 Potassium 4.1 mmol/L (3.6-5.0) 05/18/18 06:26 Chloride 98.6 mmol/L (98-107) 05/18/18 06:26 Carbon Dioxide 25 mmol/L (22-30) 05/18/18 06:26 Anion Gap 17 mmol/L 05/18/18 06:26 BUN 16 mg/dL (9-20) 05/18/18 06:26 Creatinine 0.7 mg/dL (0.8-1.5) L 05/18/18 06:26 Estimated GFR > 60 ml/min 05/18/18 06:26 BUN/Creatinine Ratio 23 % 05/18/18 06:26 Glucose 142 mg/dL (75-100) H 05/18/18 06:26 POC Glucose 162 (70-105) H 05/12/18 20:08 Hemoglobin A1c 6.1 % (4-6) H 05/04/18 18:02 Calcium 8.7 mg/dL (8.4-10.2) 05/18/18 06:26 Phosphorus 3.40 mg/dL (2.5-4.5) 05/18/18 06:26 Magnesium 1.90 mg/dL (1.7-2.3) 05/18/18 06:26 Total Bilirubin 0.30 mg/dL (0.1-1.2) 05/05/18 06:32 AST 18 units/L (5-40) 05/05/18 06:32 ALT 11 units/L (7-56) 05/05/18 06:32 Alkaline Phosphatase 123 units/L (35-129) 05/05/18 06:32 Total Creatine Kinase 375 units/L (55-170) H 05/04/18 11:31 CK-MB (CK-2) 2.8 ng/mL (0.0-4.0) 05/04/18 11:31 CK-MB (CK-2) Rel Index 0.7 (0-4) 05/04/18 11:31 Troponin T < 0.010 ng/mL (0.00-0.029) 05/05/18 06:32 NT-Pro-B Natriuret Pep 84.11 pg/mL (0-450) 05/04/18 11:31 Total Protein 6.6 g/dL (6.3-8.2) 05/05/18 06:32 Albumin 3.2 g/dL (3.9-5) L 05/05/18 06:32 Albumin/Globulin Ratio 0.9 % 05/05/18 06:32 Lipase 13 units/L (13-60) 05/04/18 11:31 Angiotensin Convert Enz See scanned result 05/05/18 06:32 Carcinoembryonic Ag See scanned result 05/05/18 12:29 Urine Color Yellow (Yellow) 05/04/18 Unknown Urine Turbidity Clear (Clear) 05/04/18 Unknown Urine pH 5.0 (5.0-7.0) 05/04/18 Unknown Ur Specific [place] 1.026 (1.003-1.030) 05/04/18 Unknown Urine Protein <15 mg/dl mg/dL (Negative) 05/04/18 Unknown Urine Glucose (UA) Neg mg/dL (Negative) 05/04/18 Unknown Urine Ketones Tr mg/dL (Negative) 05/04/18 Unknown Urine Blood Neg (Negative) 05/04/18 Unknown Urine Nitrite Neg (Negative) 05/04/18 Unknown Urine Bilirubin Neg (Negative) 05/04/18 Unknown Urine Urobilinogen < 2.0 mg/dL (<2.0) 05/04/18 Unknown Ur Leukocyte Esterase Neg (Negative) 05/04/18 Unknown Urine WBC (Auto) 3.0 /HPF (0.0-6.0) 05/04/18 Unknown Urine RBC (Auto) 3.0 /HPF (0.0-6.0) 05/04/18 Unknown U Epithel Cells (Auto) < 1.0 /HPF (0-13.0) 05/04/18 Unknown Urine Bacteria (Auto) 1+ /HPF (Negative) 05/04/18 Unknown Urine Mucus 1+ /HPF 05/04/18 Unknown Urine Opiates Screen Presumptive negative 05/04/18 Unknown Urine Methadone Screen Presumptive negative 05/04/18 Unknown Ur Barbiturates Screen Presumptive negative 05/04/18 Unknown Ur Phencyclidine Scrn Presumptive negative 05/04/18 Unknown Ur Amphetamines Screen Presumptive negative 05/04/18 Unknown U Benzodiazepines Scrn Presumptive negative 05/04/18 Unknown Urine Cocaine Screen Presumptive negative 05/04/18 Unknown U Marijuana (THC) Screen Presumptive positive 05/04/18 Unknown Drugs of Abuse Note Disclamer 05/04/18 Unknown Blood Type O POSITIVE 05/12/18 06:20 Antibody Screen Negative 05/12/18 06:20
[2018-05-18] MEDS: LOVENOX SUB-Q SCH (09:03)
[2018-05-18] MEDS: SODIUM CHLORIDE FLUSH SYRINGE 10 ML IV PRN (09:40)
--- NOTE | 2018-05-18 09:56 | Hem/Onc Progress Note ---
Assessment and Plan Awaiting pathology. MRI findings d/w pt. We will follow.once d/c- needs palliative chemo Subjective Date of service: 05/18/18 Interval history: events noted. On pain meds and on benzos. mri findings noted Objective - Constitutional Vitals: Last Vital Signs Temp 98.5 F 05/18/18 07:30 Pulse 132 H 05/18/18 07:30 Resp 20 05/18/18 09:01 BP 134/86 05/18/18 07:30 Pulse Ox 100 05/18/18 07:30 General appearance: mild distress Performance status: 3-limited selfcare - Neck Neck: supple - Respiratory Respiratory effort: Positive: normal - Labs Lab Results: Laboratory Results - last 24 hr 05/18/18 05/18/18 06:26 06:26 WBC 12.9 H RBC 3.62 L Hgb 10.5 L Hct 31.3 L MCV 87 MCH 29 MCHC 34 RDW 14.0 Plt Count 162 Sodium 136 L Potassium 4.1 Chloride 98.6 Carbon Dioxide 25 Anion Gap 17 BUN 16 Creatinine 0.7 L Estimated GFR > 60 BUN/Creatinine Ratio 23 Glucose 142 H Calcium 8.7 Phosphorus 3.40 Magnesium 1.90
--- NOTE | 2018-05-18 18:07 | Progress Note ---
Assessment and Plan 48 yo M s/p 48 yo M s/p Laparoscopic right hemicolectomy with primary anastamosis, lysis of adhesions, POD [address] A/P, Chest reviewed - no PE. Distended stomach and small bowel loops - ileus vs pSBO, NO LEAK MRI spine - diffuse mets of spine Plan: 1. NPO, likely has ileus from surgery. 2. IVF - D5NS@125cc/hr 3. Continue NGT to LCWS 4. DVT ppx 5. prn pain control 6. await final path 7. onc following - d/w Dr. Jane - patient will likely need chemo, hold off on port until recovered from bowel surgery and will be set up as outpatient. 9. WBC trending down 10. await bowel function 11. OOB/ambulate Please call with questions or concerns. Subjective Date of service: 05/18/18 Narrative: Pt seen and examined. States he feels slightly better. No n/v. Abd pain improved. No flatus or BM. No f/c. Objective Vital Signs - 12hr 05/18/18 05/18/18 05/18/18 07:30 07:52 08:22 Temperature 98.5 F Pulse Rate 132 H Respiratory 20 20 20 Rate Respiratory Rate [Abdomen] Respiratory Rate [Back] Blood Pressure 134/86 [Left] O2 Sat by Pulse 100 Oximetry 05/18/18 05/18/18 05/18/18 09:01 11:40 12:07 Temperature 98.8 F Pulse Rate 138 H Respiratory 20 16 Rate Respiratory 20 Rate [Abdomen] Respiratory 20 Rate [Back] Blood Pressure 131/89 [Left] O2 Sat by Pulse 95 Oximetry 05/18/18 05/18/18 05/18/18 12:37 14:41 15:11 Temperature Pulse Rate Respiratory 20 16 20 Rate Respiratory Rate [Abdomen] Respiratory Rate [Back] Blood Pressure [Left] O2 Sat by Pulse Oximetry 05/18/18 15:40 Temperature 98.9 F Pulse Rate 128 H Respiratory 18 Rate Respiratory Rate [Abdomen] Respiratory Rate [Back] Blood Pressure 124/78 [Left] O2 Sat by Pulse 98 Oximetry - General physical appearance Narrative Exam: Gen: AAOx3. NAD ENT: NGT in place with green drainage CV: S1, S2+ resp: even and unlabored Abd: soft, distended, NT. incisions c/d/i. Midline incision with stable ecchymosis and hematoma. Ext: no c/c/e - Labs 05/18/18 06:26 05/18/18 06:26 Diabetes panel 05/18/18 Range/Units 06:26 Sodium 136 L (137-145) mmol/L Potassium 4.1 (3.6-5.0) mmol/L Chloride 98.6 (98-107) mmol/L Carbon Dioxide 25 (22-30) mmol/L BUN 16 (9-20) mg/dL Creatinine 0.7 L (0.8-1.5) mg/dL Glucose 142 H (75-100) mg/dL Calcium 8.7 (8.4-10.2) mg/dL Calcium panel 05/18/18 Range/Units 06:26 Calcium 8.7 (8.4-10.2) mg/dL Phosphorus 3.40 (2.5-4.5) mg/dL Pituitary panel 05/18/18 Range/Units 06:26 Sodium 136 L (137-145) mmol/L Potassium 4.1 (3.6-5.0) mmol/L Chloride 98.6 (98-107) mmol/L Carbon Dioxide 25 (22-30) mmol/L BUN 16 (9-20) mg/dL Creatinine 0.7 L (0.8-1.5) mg/dL Glucose 142 H (75-100) mg/dL Calcium 8.7 (8.4-10.2) mg/dL Adrenal panel 05/18/18 Range/Units 06:26 Sodium 136 L (137-145) mmol/L Potassium 4.1 (3.6-5.0) mmol/L Chloride 98.6 (98-107) mmol/L Carbon Dioxide 25 (22-30) mmol/L BUN 16 (9-20) mg/dL Creatinine 0.7 L (0.8-1.5) mg/dL Glucose 142 H (75-100) mg/dL Calcium 8.7 (8.4-10.2) mg/dL
[2018-05-19] MEDS: D5NS 1,000 ML IV SCH ×3 (01:57→23:05)
[2018-05-19] MEDS: DILAUDID IV PRN ×7 (05:01→22:51)
[2018-05-19] MEDS: NEURONTIN PO SCH ×3 (05:06→23:21)
[2018-05-19] MEDS: VALIUM PO SCH ×3 (05:06→23:22)
[2018-05-19 05:13] LABS: BUN/Creatinine Ratio 23; Blood Urea Nitrogen 14 mg/dL (9-20); Calcium 8.7 mg/dL (8.4-10.2); Hemolysis Index 0
--- NOTE | 2018-05-19 07:55 | Magnetic Resonance Report ---
FINAL REPORT EXAM: MR THORACIC SPINE WO/W CON HISTORY: metastasis TECHNIQUE: Routine multiplanar fast spin echo sequences were obtained of the thoracic spine initially without and following the intravenous injection of contrast. There are no previous studies available for comparison. The images extend to the bottom of T11. FINDINGS: There is heterogeneous marrow signal in all of the cervical and imaged thoracic vertebral bodies including the posterior elements with no areas of sparing compatible extensive skeletal metastases. The postcontrast images reveal variable enhancement of these lesions. There is no evidence of dural disease or cord compression. The cord signal is unremarkable. The canal size is normal. The conus is not seen on the images. The part vertebral soft tissues are unremarkable. Additional heterogeneous signal is seen in multiple ribs bilaterally also. 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 No evidence of dural disease, cord compression or cord signal abnormality.
[2018-05-19] MEDS: LOVENOX SUB-Q SCH (11:04)
[2018-05-19] MEDS: SODIUM CHLORIDE FLUSH SYRINGE 10 ML IV SCH ×2 (11:09→23:22)
--- NOTE | 2018-05-19 11:54 | Hem/Onc Progress Note ---
Assessment and Plan Awaiting pathology. MRI findings d/w pt. We will follow.once d/c- needs palliative chemo Discussed with the patient's sister and girlfriend. central office worker arranging for hospice who can see the patient and also will allow me to give palliative chemotherapy. I'm still awaiting final path Subjective Date of service: 05/19/18 Interval history: events noted. On pain meds and on benzos. mri findings noted Objective - Constitutional Vitals: Last Vital Signs Temp 98.9 F 05/19/18 04:51 Pulse 134 H 05/19/18 04:51 Resp 17 05/19/18 08:08 BP 138/87 05/19/18 04:51 Pulse Ox 89 05/19/18 04:51 Performance status: 3-limited selfcare - Neck Neck: supple - Respiratory Respiratory effort: Positive: normal - Cardiovascular Rhythm: regular - Gastrointestinal General gastrointestinal: Present: soft - Labs Lab Results: Laboratory Results - last 24 hr 05/19/18 04:15 Sodium 139 Potassium 4.3 Chloride 101.5 Carbon Dioxide 26 Anion Gap 16 BUN 14 Creatinine 0.6 L Estimated GFR > 60 BUN/Creatinine Ratio 23 Glucose 135 H Calcium 8.7
--- NOTE | 2018-05-19 13:59 | Progress Note ---
Assessment and Plan 48 yo M s/p Laparoscopic right hemicolectomy with primary anastamosis, lysis of adhesions, POD [address] A/P, Chest reviewed - no PE. Distended stomach and small bowel loops - ileus vs pSBO, NO LEAK MRI T/L spine - diffuse mets of spine Plan: 1. NPO- ileus from surgery - improving 2. IVF - D5NS@125cc/hr 3. Continue NGT to LCWS 4. DVT ppx 5. prn pain control 6. final path report pending 7. onc following - d/w Dr. Jane - patient will need chemo, hold off on port until recovered from bowel surgery and will be set up as outpatient. Hospice c/ s pending 9. WBC trending down 10. await bowel function 11. OOB/ambulate Please call with questions or concerns. Subjective Date of service: 05/19/18 Narrative: Pt seen and examined. c/o pain in throat from NGT. No f/c, cp, sob. +Flatus but no BM Objective Vital Signs - 12hr 05/19/18 05/19/18 05/19/18 04:51 05:01 05:31 Temperature 98.9 F Pulse Rate 134 H Respiratory 17 16 17 Rate Blood Pressure 138/87 O2 Sat by Pulse 89 Oximetry 05/19/18 08:08 Temperature Pulse Rate Respiratory 17 Rate Blood Pressure O2 Sat by Pulse Oximetry - General physical appearance Narrative Exam: Gen: AAOx3. NAD ENT: NGT with green drainage CV: S1, S2+ resp: even and unlabored Abd: soft, distension improved, NT. incisions c/d/i, midline incision with stable ecchymosis/hematoma Ext: no c/c/e - Labs 05/18/18 06:26 05/19/18 04:15 Diabetes panel 05/19/18 Range/Units 04:15 Sodium 139 (137-145) mmol/L Potassium 4.3 (3.6-5.0) mmol/L Chloride 101.5 (98-107) mmol/L Carbon Dioxide 26 (22-30) mmol/L BUN 14 (9-20) mg/dL Creatinine 0.6 L (0.8-1.5) mg/dL Glucose 135 H (75-100) mg/dL Calcium 8.7 (8.4-10.2) mg/dL Calcium panel 05/19/18 Range/Units 04:15 Calcium 8.7 (8.4-10.2) mg/dL Pituitary panel 05/19/18 Range/Units 04:15 Sodium 139 (137-145) mmol/L Potassium 4.3 (3.6-5.0) mmol/L Chloride 101.5 (98-107) mmol/L Carbon Dioxide 26 (22-30) mmol/L BUN 14 (9-20) mg/dL Creatinine 0.6 L (0.8-1.5) mg/dL Glucose 135 H (75-100) mg/dL Calcium 8.7 (8.4-10.2) mg/dL Adrenal panel 05/19/18 Range/Units 04:15 Sodium 139 (137-145) mmol/L Potassium 4.3 (3.6-5.0) mmol/L Chloride 101.5 (98-107) mmol/L Carbon Dioxide 26 (22-30) mmol/L BUN 14 (9-20) mg/dL Creatinine 0.6 L (0.8-1.5) mg/dL Glucose 135 H (75-100) mg/dL Calcium 8.7 (8.4-10.2) mg/dL
[2018-05-19] MEDS: ATIVAN IV PRN (21:38)
[2018-05-19] MEDS: TYLENOL PO PRN (23:38)
[2018-05-20] MEDS: DILAUDID IV PRN ×7 (01:25→23:33)
[2018-05-20] MEDS: NEURONTIN PO SCH ×3 (05:56→23:40)
[2018-05-20] MEDS: VALIUM PO SCH ×4 (05:56→23:39)
[2018-05-20] MEDS: D5NS 1,000 ML IV SCH ×2 (09:04→17:44)
--- NOTE | 2018-05-20 10:00 | Hem/Onc Progress Note ---
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 All 15 lymph nodes positive for malignancy. Patient exhibited poor performance status currently. This could be related to the medicines along with the metastatic disease. Hospice has been evaluating. I would recommend GI also to see if we could check upper GI endoscopy to see if the primary could be in the upper GI specially with signet ring cell type malignancy.This is poor Subjective Date of service: 05/20/18 Interval history: events noted. Patient breathing his NG tube. Seems tired today. Objective - Exam Narrative Exam: More sleepy. - Constitutional Vitals: Last Vital Signs Temp 97.8 F 05/20/18 07:10 Pulse 134 H 05/20/18 07:10 Resp 18 05/20/18 07:10 BP 128/85 05/20/18 07:10 Pulse Ox 99 05/20/18 07:10 - Labs Lab Results: Laboratory Results - last 24 hr 05/10/18 17:05 Carcinoembryonic Ag See scanned results
[2018-05-20] MEDS: LOVENOX SUB-Q SCH (10:21)
[2018-05-20 11:34] LABS: BUN/Creatinine Ratio 18; Blood Urea Nitrogen 14 mg/dL (9-20); Calcium 9.2 mg/dL (8.4-10.2); Hemolysis Index 1
--- NOTE | 2018-05-20 13:13 | Progress Note ---
Assessment and Plan 48 yo M s/p Laparoscopic right hemicolectomy with primary anastamosis, lysis of adhesions, POD [address] A/P, Chest reviewed - no PE. Distended stomach and small bowel loops - ileus vs pSBO, NO LEAK MRI T/L spine - diffuse mets of spine Plan: 1. Nothing by mouth - ileus improving. Patient will not allow placement of another NGT. Continue to monitor. Ok to have ice chips. 2. IVF - D5NS@100cc/hr 3. DVT ppx 4. prn pain control - recommend adding fentanyl patch and decreasing dose of oral dilaudid 5. 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 onc following - d/w Dr. Jane - patient will need chemo, hold off on port until recovered from bowel surgery and will be set up as outpatient. Hospice c/s pending 6. await bowel function 7. encourage OOB/ambulate Please call with questions or concerns. Subjective Date of service: 05/20/18 Narrative: Patient seen and examined. He has no complaints today. He states that he is still having ongoing back pain. The patient pulled out his own NG tube last night because it was uncomfortable. He states he is mildly nauseated but has not had vomiting. He states he's been passing a lot of flatus and no bowel movement yet. Objective Vital Signs - 12hr 05/20/18 05/20/18 05/20/18 05:12 07:10 10:00 Temperature 99.4 F 97.8 F Pulse Rate 134 H 134 H Respiratory 18 18 Rate Blood Pressure 139/84 Blood Pressure 128/85 [Left] O2 Sat by Pulse 95 99 99 Oximetry 05/20/18 11:45 Temperature 100.6 F H Pulse Rate 137 H Respiratory 20 Rate Blood Pressure Blood Pressure 132/80 [Left] O2 Sat by Pulse 87 Oximetry - General physical appearance Narrative Exam: General: Awake, alert, oriented 3. No apparent distress. Sad and tearful. ENT: No scleral icterus or conjunctival pallor CV: S1, S2 present Respiratory: No audible wheezes Abdomen: Soft, nondistended, nontender. Incisions clean, dry, intact. Midline incision ecchymosis and hematoma resolving. Extremities: No clubbing, cyanosis, edema - Labs 05/18/18 06:26 05/20/18 09:50 Diabetes panel 05/20/18 Range/Units 09:50 Sodium 142 (137-145) mmol/L Potassium 4.3 (3.6-5.0) mmol/L Chloride 101.6 (98-107) mmol/L Carbon Dioxide 27 (22-30) mmol/L BUN 14 (9-20) mg/dL Creatinine 0.8 (0.8-1.5) mg/dL Glucose 142 H (75-100) mg/dL Calcium 9.2 (8.4-10.2) mg/dL Calcium panel 05/20/18 Range/Units 09:50 Calcium 9.2 (8.4-10.2) mg/dL Pituitary panel 05/20/18 Range/Units 09:50 Sodium 142 (137-145) mmol/L Potassium 4.3 (3.6-5.0) mmol/L Chloride 101.6 (98-107) mmol/L Carbon Dioxide 27 (22-30) mmol/L BUN 14 (9-20) mg/dL Creatinine 0.8 (0.8-1.5) mg/dL Glucose 142 H (75-100) mg/dL Calcium 9.2 (8.4-10.2) mg/dL Adrenal panel 05/20/18 Range/Units 09:50 Sodium 142 (137-145) mmol/L Potassium 4.3 (3.6-5.0) mmol/L Chloride 101.6 (98-107) mmol/L Carbon Dioxide 27 (22-30) mmol/L BUN 14 (9-20) mg/dL Creatinine 0.8 (0.8-1.5) mg/dL Glucose 142 H (75-100) mg/dL Calcium 9.2 (8.4-10.2) mg/dL
--- NOTE | 2018-05-20 15:08 | Progress Note ---
Hospitalist Physical - Constitutional Vitals: Temp Pulse Resp BP Pulse Ox 100.6 F H 137 H 20 132/80 87 05/20/18 11:45 05/20/18 11:45 05/20/18 11:45 05/20/18 11:45 05/20/18 11:45 General appearance: Present: mild distress Results - Labs CBC & Chem 7: 05/18/18 06:26 05/20/18 09:50 Labs: Laboratory Last Values WBC 12.9 K/mm3 (4.5-11.0) H 05/18/18 06:26 RBC 3.62 M/mm3 (3.65-5.03) L 05/18/18 06:26 Hgb 10.5 gm/dl (11.8-15.2) L 05/18/18 06:26 Hct 31.3 % (35.5-45.6) L 05/18/18 06:26 MCV 87 fl (84-94) 05/18/18 06:26 MCH 29 pg (28-32) 05/18/18 06:26 MCHC 34 % (32-34) 05/18/18 06:26 RDW 14.0 % (13.2-15.2) 05/18/18 06:26 Plt Count 162 K/mm3 (140-440) 05/18/18 06:26 Lymph % (Auto) 14.2 % (13.4-35.0) 05/04/18 11:31 Phelps % (Auto) [employer] 05/05/18 06:32 Eos % (Auto) 1.4 % (0.0-4.3) 05/04/18 11:31 Baso % (Auto) 0.9 % (0.0-1.8) 05/04/18 11:31 Lymph # 1.4 K/mm3 (1.2-5.4) 05/04/18 11:31 Phelps # 1.3 K/mm3 (0.0-0.8) H 05/04/18 11:31 Eos # 0.1 K/mm3 (0.0-0.4) 05/04/18 11:31 Baso # 0.1 K/mm3 (0.0-0.1) 05/04/18 11:31 Add Manual Diff Complete 05/16/18 05:04 Total Counted 100 05/16/18 05:04 Seg Neutrophils % 71.1 % (40.0-70.0) H 05/04/18 11:31 Seg Neuts % (Manual) 78.0 % (40.0-70.0) H 05/16/18 05:04 Band Neutrophils % 5.0 % 05/16/18 05:04 Lymphocytes % (Manual) 7.0 % (13.4-35.0) L 05/16/18 05:04 Reactive Lymphs % (Man) 0 % 05/16/18 05:04 Monocytes % (Manual) 8.0 % (0.0-7.3) H 05/16/18 05:04 Eosinophils % (Manual) 0 % (0.0-4.3) 05/16/18 05:04 Basophils % (Manual) 0 % (0.0-1.8) 05/16/18 05:04 Metamyelocytes % 2.0 % 05/16/18 05:04 Myelocytes % 0 % 05/16/18 05:04 Promyelocytes % 0 % 05/16/18 05:04 Blast Cells % 0 % 05/16/18 05:04 Nucleated RBC % Not Reportable 05/16/18 05:04 Seg Neutrophils # 7.2 K/mm3 (1.8-7.7) 05/04/18 11:31 Seg Neutrophils # Man 10.6 K/mm3 (1.8-7.7) H 05/16/18 05:04 Band Neutrophils # 0.7 K/mm3 05/16/18 05:04 Lymphocytes # (Manual) 1.0 K/mm3 (1.2-5.4) L 05/16/18 05:04 Abs React Lymphs (Man) 0.0 K/mm3 05/16/18 05:04 Monocytes # (Manual) 1.1 K/mm3 (0.0-0.8) H 05/16/18 05:04 Eosinophils # (Manual) 0.0 K/mm3 (0.0-0.4) 05/16/18 05:04 Basophils # (Manual) 0.0 K/mm3 (0.0-0.1) 05/16/18 05:04 Metamyelocytes # 0.3 K/mm3 05/16/18 05:04 Myelocytes # 0.0 K/mm3 05/16/18 05:04 Promyelocytes # 0.0 K/mm3 05/16/18 05:04 Blast Cells # 0.0 K/mm3 05/16/18 05:04 WBC Morphology Not Reportable 05/16/18 05:04 Hypersegmented Neuts Not Reportable 05/16/18 05:04 Hyposegmented Neuts Not Reportable 05/16/18 05:04 Hypogranular Neuts Not Reportable 05/16/18 05:04 Smudge Cells Not Reportable 05/16/18 05:04 Toxic Granulation Not Reportable 05/16/18 05:04 Toxic Vacuolation Not Reportable 05/16/18 05:04 Dohle Bodies Not Reportable 05/16/18 05:04 Pelger-Huet Anomaly Not Reportable 05/16/18 05:04 Hayde Rods Not Reportable 05/16/18 05:04 Platelet Estimate Cons 05/16/18 05:04 Clumped Platelets Not Reportable 05/16/18 05:04 Plt Clumps, EDTA Not Reportable 05/16/18 05:04 Large Platelets Few 05/16/18 05:04 Giant Platelets Not Reportable 05/16/18 05:04 Platelet Satelliting Not Reportable 05/16/18 05:04 Plt Morphology Comment Not Reportable 05/16/18 05:04 RBC Morphology Not Reportable 05/16/18 05:04 Dimorphic RBCs Not Reportable 05/16/18 05:04 Polychromasia Not Reportable 05/16/18 05:04 Hypochromasia Not Reportable 05/16/18 05:04 Poikilocytosis Not Reportable 05/16/18 05:04 Anisocytosis 1+ 05/16/18 05:04 Microcytosis Not Reportable 05/16/18 05:04 Macrocytosis Not Reportable 05/16/18 05:04 Spherocytes Not Reportable 05/16/18 05:04 Pappenheimer Bodies Not Reportable 05/16/18 05:04 Sickle Cells Not Reportable 05/16/18 05:04 Target Cells Not Reportable 05/16/18 05:04 Tear Drop Cells Not Reportable 05/16/18 05:04 Ovalocytes Not Reportable 05/16/18 05:04 Helmet Cells Not Reportable 05/16/18 05:04 [place] Bodies Not Reportable 05/16/18 05:04 [place] Rings Not Reportable 05/16/18 05:04 Tracy Cells Not Reportable 05/16/18 05:04 Bite Cells Not Reportable 05/16/18 05:04 Crenated Cell Not Reportable 05/16/18 05:04 Elliptocytes Not Reportable 05/16/18 05:04 Acanthocytes (Spur) Not Reportable 05/16/18 05:04 Rouleaux Not Reportable 05/16/18 05:04 Hemoglobin C Crystals Not Reportable 05/16/18 05:04 Schistocytes Not Reportable 05/16/18 05:04 Malaria parasites Not Reportable 05/16/18 05:04 Reilly Bodies Not Reportable 05/16/18 05:04 Hem Pathologist Commnt No 05/16/18 05:04 PT 13.9 Sec. (12.2-14.9) 05/04/18 11:31 INR 1.02 (0.87-1.13) 05/04/18 11:31 APTT 29.9 Sec. (24.2-36.6) 05/04/18 11:31 D-Dimer 5221.96 ng/mlDDU (0-234) H 05/04/18 11:31 Sodium 142 mmol/L (137-145) 05/20/18 09:50 Potassium 4.3 mmol/L (3.6-5.0) 05/20/18 09:50 Chloride 101.6 mmol/L (98-107) 05/20/18 09:50 Carbon Dioxide 27 mmol/L (22-30) 05/20/18 09:50 Anion Gap 18 mmol/L 05/20/18 09:50 BUN 14 mg/dL (9-20) 05/20/18 09:50 Creatinine 0.8 mg/dL (0.8-1.5) 05/20/18 09:50 Estimated GFR > 60 ml/min 05/20/18 09:50 BUN/Creatinine Ratio 18 % 05/20/18 09:50 Glucose 142 mg/dL (75-100) H 05/20/18 09:50 POC Glucose 162 (70-105) H 05/12/18 20:08 Hemoglobin A1c 6.1 % (4-6) H 05/04/18 18:02 Calcium 9.2 mg/dL (8.4-10.2) 05/20/18 09:50 Phosphorus 3.40 mg/dL (2.5-4.5) 05/18/18 06:26 Magnesium 1.90 mg/dL (1.7-2.3) 05/18/18 06:26 Total Bilirubin 0.30 mg/dL (0.1-1.2) 05/05/18 06:32 AST 18 units/L (5-40) 05/05/18 06:32 ALT 11 units/L (7-56) 05/05/18 06:32 Alkaline Phosphatase 123 units/L (35-129) 05/05/18 06:32 Total Creatine Kinase 375 units/L (55-170) H 05/04/18 11:31 CK-MB (CK-2) 2.8 ng/mL (0.0-4.0) 05/04/18 11:31 CK-MB (CK-2) Rel Index 0.7 (0-4) 05/04/18 11:31 Troponin T < 0.010 ng/mL (0.00-0.029) 05/05/18 06:32 NT-Pro-B Natriuret Pep 84.11 pg/mL (0-450) 05/04/18 11:31 Total Protein 6.6 g/dL (6.3-8.2) 05/05/18 06:32 Albumin 3.2 g/dL (3.9-5) L 05/05/18 06:32 Albumin/Globulin Ratio 0.9 % 05/05/18 06:32 Lipase 13 units/L (13-60) 05/04/18 11:31 Angiotensin Convert Enz See scanned result 05/05/18 06:32 Carcinoembryonic Ag See scanned results 05/10/18 17:05 Urine Color Yellow (Yellow) 05/04/18 Unknown Urine Turbidity Clear (Clear) 05/04/18 Unknown Urine pH 5.0 (5.0-7.0) 05/04/18 Unknown Ur Specific Mondamin 1.026 (1.003-1.030) 05/04/18 Unknown Urine Protein <15 mg/dl mg/dL (Negative) 05/04/18 Unknown Urine Glucose (UA) Neg mg/dL (Negative) 05/04/18 Unknown Urine Ketones Tr mg/dL (Negative) 05/04/18 Unknown Urine Blood Neg (Negative) 05/04/18 Unknown Urine Nitrite Neg (Negative) 05/04/18 Unknown Urine Bilirubin Neg (Negative) 05/04/18 Unknown Urine Urobilinogen < 2.0 mg/dL (<2.0) 05/04/18 Unknown Ur Leukocyte Esterase Neg (Negative) 05/04/18 Unknown Urine WBC (Auto) 3.0 /HPF (0.0-6.0) 05/04/18 Unknown Urine RBC (Auto) 3.0 /HPF (0.0-6.0) 05/04/18 Unknown U Epithel Cells (Auto) < 1.0 /HPF (0-13.0) 05/04/18 Unknown Urine Bacteria (Auto) 1+ /HPF (Negative) 05/04/18 Unknown Urine Mucus 1+ /HPF 05/04/18 Unknown Urine Opiates Screen Presumptive negative 05/04/18 Unknown Urine Methadone Screen Presumptive negative 05/04/18 Unknown Ur Barbiturates Screen Presumptive negative 05/04/18 Unknown Ur Phencyclidine Scrn Presumptive negative 05/04/18 Unknown Ur Amphetamines Screen Presumptive negative 05/04/18 Unknown U Benzodiazepines Scrn Presumptive negative 05/04/18 Unknown Urine Cocaine Screen Presumptive negative 05/04/18 Unknown U Marijuana (THC) Screen Presumptive positive 05/04/18 Unknown Drugs of Abuse Note Disclamer 05/04/18 Unknown Blood Type O POSITIVE 05/12/18 06:20 Antibody Screen Negative 05/12/18 06:20
[2018-05-20] MEDS ORDERED: DURAGESIC TD SCH (16:00)
--- NOTE | 2018-05-20 18:09 | Event Note ---
Date: 05/20/18 - discussed w/ pt - pt defers EGD and consider hospice - no need further GI intervention - call if needed
[2018-05-20] MEDS: SODIUM CHLORIDE FLUSH SYRINGE 10 ML IV SCH (23:40)
[2018-05-21] MEDS: DILAUDID IV PRN ×5 (03:59→21:25)
[2018-05-21] MEDS: D5NS 1,000 ML IV SCH ×3 (04:05→22:28)
[2018-05-21] MEDS: NEURONTIN PO SCH (05:43)
[2018-05-21] MEDS: VALIUM PO SCH ×3 (06:04→21:25)
[2018-05-21] MEDS: LOVENOX SUB-Q SCH (09:23)
[2018-05-21] MEDS: SODIUM CHLORIDE FLUSH SYRINGE 10 ML IV SCH ×2 (10:08→21:32)
--- NOTE | 2018-05-21 12:58 | Progress Note ---
Hospitalist Physical - Constitutional Vitals: Temp Pulse Resp BP Pulse Ox 99 F 122 H 18 117/79 97 05/21/18 08:00 05/21/18 08:00 05/21/18 08:00 05/21/18 08:00 05/21/18 10:00 General appearance: Present: mild distress Results - Labs CBC & Chem 7: 05/18/18 06:26 05/20/18 09:50 Labs: Laboratory Last Values WBC 12.9 K/mm3 (4.5-11.0) H 05/18/18 06:26 RBC 3.62 M/mm3 (3.65-5.03) L 05/18/18 06:26 Hgb 10.5 gm/dl (11.8-15.2) L 05/18/18 06:26 Hct 31.3 % (35.5-45.6) L 05/18/18 06:26 MCV 87 fl (84-94) 05/18/18 06:26 MCH 29 pg (28-32) 05/18/18 06:26 MCHC 34 % (32-34) 05/18/18 06:26 RDW 14.0 % (13.2-15.2) 05/18/18 06:26 Plt Count 162 K/mm3 (140-440) 05/18/18 06:26 Lymph % (Auto) 14.2 % (13.4-35.0) 05/04/18 11:31 [place] % (Auto) Cdl Program Coordinator 05/05/18 06:32 Eos % (Auto) 1.4 % (0.0-4.3) 05/04/18 11:31 Baso % (Auto) 0.9 % (0.0-1.8) 05/04/18 11:31 Lymph # 1.4 K/mm3 (1.2-5.4) 05/04/18 11:31 [place] # 1.3 K/mm3 (0.0-0.8) H 05/04/18 11:31 Eos # 0.1 K/mm3 (0.0-0.4) 05/04/18 11:31 Baso # 0.1 K/mm3 (0.0-0.1) 05/04/18 11:31 Add Manual Diff Complete 05/16/18 05:04 Total Counted 100 05/16/18 05:04 Seg Neutrophils % 71.1 % (40.0-70.0) H 05/04/18 11:31 Seg Neuts % (Manual) 78.0 % (40.0-70.0) H 05/16/18 05:04 Band Neutrophils % 5.0 % 05/16/18 05:04 Lymphocytes % (Manual) 7.0 % (13.4-35.0) L 05/16/18 05:04 Reactive Lymphs % (Man) 0 % 05/16/18 05:04 Monocytes % (Manual) 8.0 % (0.0-7.3) H 05/16/18 05:04 Eosinophils % (Manual) 0 % (0.0-4.3) 05/16/18 05:04 Basophils % (Manual) 0 % (0.0-1.8) 05/16/18 05:04 Metamyelocytes % 2.0 % 05/16/18 05:04 Myelocytes % 0 % 05/16/18 05:04 Promyelocytes % 0 % 05/16/18 05:04 Blast Cells % 0 % 05/16/18 05:04 Nucleated RBC % Not Reportable 05/16/18 05:04 Seg Neutrophils # 7.2 K/mm3 (1.8-7.7) 05/04/18 11:31 Seg Neutrophils # Man 10.6 K/mm3 (1.8-7.7) H 05/16/18 05:04 Band Neutrophils # 0.7 K/mm3 05/16/18 05:04 Lymphocytes # (Manual) 1.0 K/mm3 (1.2-5.4) L 05/16/18 05:04 Abs React Lymphs (Man) 0.0 K/mm3 05/16/18 05:04 Monocytes # (Manual) 1.1 K/mm3 (0.0-0.8) H 05/16/18 05:04 Eosinophils # (Manual) 0.0 K/mm3 (0.0-0.4) 05/16/18 05:04 Basophils # (Manual) 0.0 K/mm3 (0.0-0.1) 05/16/18 05:04 Metamyelocytes # 0.3 K/mm3 05/16/18 05:04 Myelocytes # 0.0 K/mm3 05/16/18 05:04 Promyelocytes # 0.0 K/mm3 05/16/18 05:04 Blast Cells # 0.0 K/mm3 05/16/18 05:04 WBC Morphology Not Reportable 05/16/18 05:04 Hypersegmented Neuts Not Reportable 05/16/18 05:04 Hyposegmented Neuts Not Reportable 05/16/18 05:04 Hypogranular Neuts Not Reportable 05/16/18 05:04 Smudge Cells Not Reportable 05/16/18 05:04 Toxic Granulation Not Reportable 05/16/18 05:04 Toxic Vacuolation Not Reportable 05/16/18 05:04 Dohle Bodies Not Reportable 05/16/18 05:04 Pelger-Huet Anomaly Not Reportable 05/16/18 05:04 Hayde Rods Not Reportable 05/16/18 05:04 Platelet Estimate Cons 05/16/18 05:04 Clumped Platelets Not Reportable 05/16/18 05:04 Plt Clumps, EDTA Not Reportable 05/16/18 05:04 Large Platelets Few 05/16/18 05:04 Giant Platelets Not Reportable 05/16/18 05:04 Platelet Satelliting Not Reportable 05/16/18 05:04 Plt Morphology Comment Not Reportable 05/16/18 05:04 RBC Morphology Not Reportable 05/16/18 05:04 Dimorphic RBCs Not Reportable 05/16/18 05:04 Polychromasia Not Reportable 05/16/18 05:04 Hypochromasia Not Reportable 05/16/18 05:04 Poikilocytosis Not Reportable 05/16/18 05:04 Anisocytosis 1+ 05/16/18 05:04 Microcytosis Not Reportable 05/16/18 05:04 Macrocytosis Not Reportable 05/16/18 05:04 Spherocytes Not Reportable 05/16/18 05:04 Pappenheimer Bodies Not Reportable 05/16/18 05:04 Sickle Cells Not Reportable 05/16/18 05:04 Target Cells Not Reportable 05/16/18 05:04 Tear Drop Cells Not Reportable 05/16/18 05:04 Ovalocytes Not Reportable 05/16/18 05:04 Helmet Cells Not Reportable 05/16/18 05:04 Gómez-Jackson Bodies Not Reportable 05/16/18 05:04 [place] Rings Not Reportable 05/16/18 05:04 [place] Cells Not Reportable 05/16/18 05:04 Bite Cells Not Reportable 05/16/18 05:04 Crenated Cell Not Reportable 05/16/18 05:04 Elliptocytes Not Reportable 05/16/18 05:04 Acanthocytes (Spur) Not Reportable 05/16/18 05:04 Rouleaux Not Reportable 05/16/18 05:04 Hemoglobin C Crystals Not Reportable 05/16/18 05:04 Schistocytes Not Reportable 05/16/18 05:04 Malaria parasites Not Reportable 05/16/18 05:04 Reilly Bodies Not Reportable 05/16/18 05:04 Hem Pathologist Commnt No 05/16/18 05:04 PT 13.9 Sec. (12.2-14.9) 05/04/18 11:31 INR 1.02 (0.87-1.13) 05/04/18 11:31 APTT 29.9 Sec. (24.2-36.6) 05/04/18 11:31 D-Dimer 5221.96 ng/mlDDU (0-234) H 05/04/18 11:31 Sodium 142 mmol/L (137-145) 05/20/18 09:50 Potassium 4.3 mmol/L (3.6-5.0) 05/20/18 09:50 Chloride 101.6 mmol/L (98-107) 05/20/18 09:50 Carbon Dioxide 27 mmol/L (22-30) 05/20/18 09:50 Anion Gap 18 mmol/L 05/20/18 09:50 BUN 14 mg/dL (9-20) 05/20/18 09:50 Creatinine 0.8 mg/dL (0.8-1.5) 05/20/18 09:50 Estimated GFR > 60 ml/min 05/20/18 09:50 BUN/Creatinine Ratio 18 % 05/20/18 09:50 Glucose 142 mg/dL (75-100) H 05/20/18 09:50 POC Glucose 162 (70-105) H 05/12/18 20:08 Hemoglobin A1c 6.1 % (4-6) H 05/04/18 18:02 Calcium 9.2 mg/dL (8.4-10.2) 05/20/18 09:50 Phosphorus 3.40 mg/dL (2.5-4.5) 05/18/18 06:26 Magnesium 1.90 mg/dL (1.7-2.3) 05/18/18 06:26 Total Bilirubin 0.30 mg/dL (0.1-1.2) 05/05/18 06:32 AST 18 units/L (5-40) 05/05/18 06:32 ALT 11 units/L (7-56) 05/05/18 06:32 Alkaline Phosphatase 123 units/L (35-129) 05/05/18 06:32 Total Creatine Kinase 375 units/L (55-170) H 05/04/18 11:31 CK-MB (CK-2) 2.8 ng/mL (0.0-4.0) 05/04/18 11:31 CK-MB (CK-2) Rel Index 0.7 (0-4) 05/04/18 11:31 Troponin T < 0.010 ng/mL (0.00-0.029) 05/05/18 06:32 NT-Pro-B Natriuret Pep 84.11 pg/mL (0-450) 05/04/18 11:31 Total Protein 6.6 g/dL (6.3-8.2) 05/05/18 06:32 Albumin 3.2 g/dL (3.9-5) L 05/05/18 06:32 Albumin/Globulin Ratio 0.9 % 05/05/18 06:32 Lipase 13 units/L (13-60) 05/04/18 11:31 Angiotensin Convert Enz See scanned result 05/05/18 06:32 Carcinoembryonic Ag See scanned results 05/10/18 17:05 Urine Color Yellow (Yellow) 05/04/18 Unknown Urine Turbidity Clear (Clear) 05/04/18 Unknown Urine pH 5.0 (5.0-7.0) 05/04/18 Unknown Ur Specific [place] 1.026 (1.003-1.030) 05/04/18 Unknown Urine Protein <15 mg/dl mg/dL (Negative) 05/04/18 Unknown Urine Glucose (UA) Neg mg/dL (Negative) 05/04/18 Unknown Urine Ketones Tr mg/dL (Negative) 05/04/18 Unknown Urine Blood Neg (Negative) 05/04/18 Unknown Urine Nitrite Neg (Negative) 05/04/18 Unknown Urine Bilirubin Neg (Negative) 05/04/18 Unknown Urine Urobilinogen < 2.0 mg/dL (<2.0) 05/04/18 Unknown Ur Leukocyte Esterase Neg (Negative) 05/04/18 Unknown Urine WBC (Auto) 3.0 /HPF (0.0-6.0) 05/04/18 Unknown Urine RBC (Auto) 3.0 /HPF (0.0-6.0) 05/04/18 Unknown U Epithel Cells (Auto) < 1.0 /HPF (0-13.0) 05/04/18 Unknown Urine Bacteria (Auto) 1+ /HPF (Negative) 05/04/18 Unknown Urine Mucus 1+ /HPF 05/04/18 Unknown Urine Opiates Screen Presumptive negative 05/04/18 Unknown Urine Methadone Screen Presumptive negative 05/04/18 Unknown Ur Barbiturates Screen Presumptive negative 05/04/18 Unknown Ur Phencyclidine Scrn Presumptive negative 05/04/18 Unknown Ur Amphetamines Screen Presumptive negative 05/04/18 Unknown U Benzodiazepines Scrn Presumptive negative 05/04/18 Unknown Urine Cocaine Screen Presumptive negative 05/04/18 Unknown U Marijuana (THC) Screen Presumptive positive 05/04/18 Unknown Drugs of Abuse Note Disclamer 05/04/18 Unknown Blood Type O POSITIVE 05/12/18 06:20 Antibody Screen Negative 05/12/18 06:20
[2018-05-21] MEDS ORDERED: MILK OF MAGNESIA PO ONE (15:56)
--- NOTE | 2018-05-21 16:47 | Progress Note ---
Assessment and Plan 48 yo M s/p Laparoscopic right hemicolectomy with primary anastamosis, lysis of adhesions, POD [address] A/P, Chest reviewed - no PE. Distended stomach and small bowel loops - ileus vs pSBO, NO LEAK MRI T/L spine - diffuse mets of spine Plan: 1. start clear liquids 2. IVF - D5NS@100cc/hr 3. DVT ppx 4. prn pain control - recommend adding fentanyl patch and decreasing dose of oral dilaudid 5. 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 onc following - d/w Dr. Jane - patient will need chemo, hold off on port until recovered from bowel surgery and will be set up as outpatient. Hospice c/s pending 6. await bowel function, will give one dose of milk of magnesia today 7. encourage OOB/ambulate Please call with questions or concerns. Subjective Date of service: 05/21/18 Narrative: Pt seen and examined. He is in better spirits today. No n/v, abd pain. He has passed flatus but no BM still. He is hungry Objective Vital Signs - 12hr 05/21/18 05/21/18 05/21/18 07:09 08:00 10:00 Temperature 99 F Pulse Rate 122 H 122 H Respiratory 18 Rate Blood Pressure Blood Pressure 117/79 [Left] O2 Sat by Pulse 97 97 Oximetry 05/21/18 05/21/18 05/21/18 11:46 11:48 12:00 Temperature 98.6 F Pulse Rate 114 H 72 Respiratory Rate Blood Pressure 119/76 Blood Pressure [Left] O2 Sat by Pulse 99 97 Oximetry 05/21/18 05/21/18 15:42 16:00 Temperature 98.5 F Pulse Rate 122 H 124 H Respiratory 18 Rate Blood Pressure Blood Pressure 133/83 [Left] O2 Sat by Pulse 100 Oximetry - General physical appearance Narrative Exam: Gen: AAOx3. NAd CV: S1, S2+ Resp: even and unlabored Abd: soft, ND, NT. midline ecchymosis improving. incisions c/d/i Ext: no c/c/e - Labs 05/18/18 06:26 05/20/18 09:50
[2018-05-22] MEDS: DILAUDID IV PRN ×6 (02:27→22:11)
[2018-05-22] MEDS: VALIUM PO SCH ×3 (05:49→22:00)
[2018-05-22] MEDS: D5NS 1,000 ML IV SCH ×2 (05:56→18:31)
--- NOTE | 2018-05-22 07:57 | Progress Note ---
Hospitalist Physical - Constitutional Vitals: Temp Pulse Resp BP Pulse Ox 97.9 F 115 H 18 118/80 99 05/22/18 07:16 05/22/18 07:16 05/22/18 07:16 05/22/18 07:16 05/22/18 07:16 General appearance: Present: mild distress Results - Labs CBC & Chem 7: 05/18/18 06:26 05/20/18 09:50 Labs: Laboratory Last Values WBC 12.9 K/mm3 (4.5-11.0) H 05/18/18 06:26 RBC 3.62 M/mm3 (3.65-5.03) L 05/18/18 06:26 Hgb 10.5 gm/dl (11.8-15.2) L 05/18/18 06:26 Hct 31.3 % (35.5-45.6) L 05/18/18 06:26 MCV 87 fl (84-94) 05/18/18 06:26 MCH 29 pg (28-32) 05/18/18 06:26 MCHC 34 % (32-34) 05/18/18 06:26 RDW 14.0 % (13.2-15.2) 05/18/18 06:26 Plt Count 162 K/mm3 (140-440) 05/18/18 06:26 Lymph % (Auto) 14.2 % (13.4-35.0) 05/04/18 11:31 [place] % (Auto) Commercial Counsel 05/05/18 06:32 Eos % (Auto) 1.4 % (0.0-4.3) 05/04/18 11:31 Baso % (Auto) 0.9 % (0.0-1.8) 05/04/18 11:31 Lymph # 1.4 K/mm3 (1.2-5.4) 05/04/18 11:31 [place] # 1.3 K/mm3 (0.0-0.8) H 05/04/18 11:31 Eos # 0.1 K/mm3 (0.0-0.4) 05/04/18 11:31 Baso # 0.1 K/mm3 (0.0-0.1) 05/04/18 11:31 Add Manual Diff Complete 05/16/18 05:04 Total Counted 100 05/16/18 05:04 Seg Neutrophils % 71.1 % (40.0-70.0) H 05/04/18 11:31 Seg Neuts % (Manual) 78.0 % (40.0-70.0) H 05/16/18 05:04 Band Neutrophils % 5.0 % 05/16/18 05:04 Lymphocytes % (Manual) 7.0 % (13.4-35.0) L 05/16/18 05:04 Reactive Lymphs % (Man) 0 % 05/16/18 05:04 Monocytes % (Manual) 8.0 % (0.0-7.3) H 05/16/18 05:04 Eosinophils % (Manual) 0 % (0.0-4.3) 05/16/18 05:04 Basophils % (Manual) 0 % (0.0-1.8) 05/16/18 05:04 Metamyelocytes % 2.0 % 05/16/18 05:04 Myelocytes % 0 % 05/16/18 05:04 Promyelocytes % 0 % 05/16/18 05:04 Blast Cells % 0 % 05/16/18 05:04 Nucleated RBC % Not Reportable 05/16/18 05:04 Seg Neutrophils # 7.2 K/mm3 (1.8-7.7) 05/04/18 11:31 Seg Neutrophils # Man 10.6 K/mm3 (1.8-7.7) H 05/16/18 05:04 Band Neutrophils # 0.7 K/mm3 05/16/18 05:04 Lymphocytes # (Manual) 1.0 K/mm3 (1.2-5.4) L 05/16/18 05:04 Abs React Lymphs (Man) 0.0 K/mm3 05/16/18 05:04 Monocytes # (Manual) 1.1 K/mm3 (0.0-0.8) H 05/16/18 05:04 Eosinophils # (Manual) 0.0 K/mm3 (0.0-0.4) 05/16/18 05:04 Basophils # (Manual) 0.0 K/mm3 (0.0-0.1) 05/16/18 05:04 Metamyelocytes # 0.3 K/mm3 05/16/18 05:04 Myelocytes # 0.0 K/mm3 05/16/18 05:04 Promyelocytes # 0.0 K/mm3 05/16/18 05:04 Blast Cells # 0.0 K/mm3 05/16/18 05:04 WBC Morphology Not Reportable 05/16/18 05:04 Hypersegmented Neuts Not Reportable 05/16/18 05:04 Hyposegmented Neuts Not Reportable 05/16/18 05:04 Hypogranular Neuts Not Reportable 05/16/18 05:04 Smudge Cells Not Reportable 05/16/18 05:04 Toxic Granulation Not Reportable 05/16/18 05:04 Toxic Vacuolation Not Reportable 05/16/18 05:04 Dohle Bodies Not Reportable 05/16/18 05:04 Pelger-Huet Anomaly Not Reportable 05/16/18 05:04 Hayde Rods Not Reportable 05/16/18 05:04 Platelet Estimate Cons 05/16/18 05:04 Clumped Platelets Not Reportable 05/16/18 05:04 Plt Clumps, EDTA Not Reportable 05/16/18 05:04 Large Platelets Few 05/16/18 05:04 Giant Platelets Not Reportable 05/16/18 05:04 Platelet Satelliting Not Reportable 05/16/18 05:04 Plt Morphology Comment Not Reportable 05/16/18 05:04 RBC Morphology Not Reportable 05/16/18 05:04 Dimorphic RBCs Not Reportable 05/16/18 05:04 Polychromasia Not Reportable 05/16/18 05:04 Hypochromasia Not Reportable 05/16/18 05:04 Poikilocytosis Not Reportable 05/16/18 05:04 Anisocytosis 1+ 05/16/18 05:04 Microcytosis Not Reportable 05/16/18 05:04 Macrocytosis Not Reportable 05/16/18 05:04 Spherocytes Not Reportable 05/16/18 05:04 Pappenheimer Bodies Not Reportable 05/16/18 05:04 Sickle Cells Not Reportable 05/16/18 05:04 Target Cells Not Reportable 05/16/18 05:04 Tear Drop Cells Not Reportable 05/16/18 05:04 Ovalocytes Not Reportable 05/16/18 05:04 Helmet Cells Not Reportable 05/16/18 05:04 Gómez-Cubero Bodies Not Reportable 05/16/18 05:04 [place] Rings Not Reportable 05/16/18 05:04 [place] Cells Not Reportable 05/16/18 05:04 Bite Cells Not Reportable 05/16/18 05:04 Crenated Cell Not Reportable 05/16/18 05:04 Elliptocytes Not Reportable 05/16/18 05:04 Acanthocytes (Spur) Not Reportable 05/16/18 05:04 Rouleaux Not Reportable 05/16/18 05:04 Hemoglobin C Crystals Not Reportable 05/16/18 05:04 Schistocytes Not Reportable 05/16/18 05:04 Malaria parasites Not Reportable 05/16/18 05:04 Reilly Bodies Not Reportable 05/16/18 05:04 Hem Pathologist Commnt No 05/16/18 05:04 PT 13.9 Sec. (12.2-14.9) 05/04/18 11:31 INR 1.02 (0.87-1.13) 05/04/18 11:31 APTT 29.9 Sec. (24.2-36.6) 05/04/18 11:31 D-Dimer 5221.96 ng/mlDDU (0-234) H 05/04/18 11:31 Sodium 142 mmol/L (137-145) 05/20/18 09:50 Potassium 4.3 mmol/L (3.6-5.0) 05/20/18 09:50 Chloride 101.6 mmol/L (98-107) 05/20/18 09:50 Carbon Dioxide 27 mmol/L (22-30) 05/20/18 09:50 Anion Gap 18 mmol/L 05/20/18 09:50 BUN 14 mg/dL (9-20) 05/20/18 09:50 Creatinine 0.8 mg/dL (0.8-1.5) 05/20/18 09:50 Estimated GFR > 60 ml/min 05/20/18 09:50 BUN/Creatinine Ratio 18 % 05/20/18 09:50 Glucose 142 mg/dL (75-100) H 05/20/18 09:50 POC Glucose 162 (70-105) H 05/12/18 20:08 Hemoglobin A1c 6.1 % (4-6) H 05/04/18 18:02 Calcium 9.2 mg/dL (8.4-10.2) 05/20/18 09:50 Phosphorus 3.40 mg/dL (2.5-4.5) 05/18/18 06:26 Magnesium 1.90 mg/dL (1.7-2.3) 05/18/18 06:26 Total Bilirubin 0.30 mg/dL (0.1-1.2) 05/05/18 06:32 AST 18 units/L (5-40) 05/05/18 06:32 ALT 11 units/L (7-56) 05/05/18 06:32 Alkaline Phosphatase 123 units/L (35-129) 05/05/18 06:32 Total Creatine Kinase 375 units/L (55-170) H 05/04/18 11:31 CK-MB (CK-2) 2.8 ng/mL (0.0-4.0) 05/04/18 11:31 CK-MB (CK-2) Rel Index 0.7 (0-4) 05/04/18 11:31 Troponin T < 0.010 ng/mL (0.00-0.029) 05/05/18 06:32 NT-Pro-B Natriuret Pep 84.11 pg/mL (0-450) 05/04/18 11:31 Total Protein 6.6 g/dL (6.3-8.2) 05/05/18 06:32 Albumin 3.2 g/dL (3.9-5) L 05/05/18 06:32 Albumin/Globulin Ratio 0.9 % 05/05/18 06:32 Lipase 13 units/L (13-60) 05/04/18 11:31 Angiotensin Convert Enz See scanned result 05/05/18 06:32 Carcinoembryonic Ag See scanned results 05/10/18 17:05 Urine Color Yellow (Yellow) 05/04/18 Unknown Urine Turbidity Clear (Clear) 05/04/18 Unknown Urine pH 5.0 (5.0-7.0) 05/04/18 Unknown Ur Specific [place] 1.026 (1.003-1.030) 05/04/18 Unknown Urine Protein <15 mg/dl mg/dL (Negative) 05/04/18 Unknown Urine Glucose (UA) Neg mg/dL (Negative) 05/04/18 Unknown Urine Ketones Tr mg/dL (Negative) 05/04/18 Unknown Urine Blood Neg (Negative) 05/04/18 Unknown Urine Nitrite Neg (Negative) 05/04/18 Unknown Urine Bilirubin Neg (Negative) 05/04/18 Unknown Urine Urobilinogen < 2.0 mg/dL (<2.0) 05/04/18 Unknown Ur Leukocyte Esterase Neg (Negative) 05/04/18 Unknown Urine WBC (Auto) 3.0 /HPF (0.0-6.0) 05/04/18 Unknown Urine RBC (Auto) 3.0 /HPF (0.0-6.0) 05/04/18 Unknown U Epithel Cells (Auto) < 1.0 /HPF (0-13.0) 05/04/18 Unknown Urine Bacteria (Auto) 1+ /HPF (Negative) 05/04/18 Unknown Urine Mucus 1+ /HPF 05/04/18 Unknown Urine Opiates Screen Presumptive negative 05/04/18 Unknown Urine Methadone Screen Presumptive negative 05/04/18 Unknown Ur Barbiturates Screen Presumptive negative 05/04/18 Unknown Ur Phencyclidine Scrn Presumptive negative 05/04/18 Unknown Ur Amphetamines Screen Presumptive negative 05/04/18 Unknown U Benzodiazepines Scrn Presumptive negative 05/04/18 Unknown Urine Cocaine Screen Presumptive negative 05/04/18 Unknown U Marijuana (THC) Screen Presumptive positive 05/04/18 Unknown Drugs of Abuse Note Disclamer 05/04/18 Unknown Blood Type O POSITIVE 05/12/18 06:20 Antibody Screen Negative 05/12/18 06:20
[2018-05-22] MEDS ORDERED: DURAGESIC TD SCH ×3 (07:59→10:00)
[2018-05-22] MEDS: LOVENOX SUB-Q SCH ×2 (08:01→10:00)
[2018-05-22] MEDS: SODIUM CHLORIDE FLUSH SYRINGE 10 ML IV SCH ×3 (11:10→22:24)
[2018-05-22] MEDS ORDERED: MILK OF MAGNESIA PO ONE ×2 (13:05→16:00)
--- NOTE | 2018-05-22 14:51 | Progress Note ---
Assessment and Plan 48 yo M s/p Laparoscopic right hemicolectomy with primary anastamosis, lysis of adhesions, POD [address] A/P, Chest reviewed - no PE. Distended stomach and small bowel loops - ileus vs pSBO, NO LEAK MRI T/L spine - diffuse mets of spine Plan: 1. adv to full liquids - continue on discharge 2. IVF - D5NS@100cc/hr 3. DVT ppx 4. prn pain control - fentanyl patch and oral dilaudid 5. 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 onc following - d/w Dr. Jane - patient will need chemo, hold off on port until recovered from bowel surgery and will be set up as outpatient. 6. will give additional dose of MOM today 7. encourage OOB/ambulate Pt planned to be discharged to hospice today. He has my card if he has any questions and may follow up in the office in 2 weeks if able. Please call with questions or concerns. Subjective Date of service: 05/22/18 Narrative: Pt seen and examined. c/o back pain. Tolerating clear liquids without n/v or increased abdominal discomfort. + Flatus, no BM yet but says he feels like he has to go. No f/c. Objective Vital Signs - 12hr 05/22/18 05/22/18 05/22/18 03:46 05:17 07:16 Temperature 98.4 F 97.9 F Pulse Rate 128 H 128 H 115 H Respiratory 18 18 Rate Blood Pressure 118/80 Blood Pressure 132/76 [Left] O2 Sat by Pulse 97 97 99 Oximetry 05/22/18 11:51 Temperature 98.4 F Pulse Rate 117 H Respiratory 18 Rate Blood Pressure 146/92 Blood Pressure [Left] O2 Sat by Pulse 85 Oximetry - General physical appearance Narrative Exam: Gen: AAOx3. NAD CV: S1, S2+ Resp: even and unlabored Abd: soft, ND, mild TTP near incisions. Incisions c/d/i. + bowel sounds Ext: no c/c/e - Labs 05/18/18 06:26 05/20/18 09:50
--- NOTE | 2018-05-22 15:33 | Hem/Onc Progress Note ---
Assessment and Plan 1. metastatic colon cancer- plan is for discharge to hospice today Subjective Date of service: 05/22/18 Interval history: still with back pain, abdominal pain Objective - Constitutional Vitals: Last Vital Signs Temp 98.4 F 05/22/18 11:51 Pulse 117 H 05/22/18 11:51 Resp 18 05/22/18 11:51 BP 146/92 05/22/18 11:51 Pulse Ox 85 05/22/18 11:51 General appearance: no acute distress - Neck Neck: supple - Respiratory Respiratory effort: Positive: normal - Cardiovascular Rhythm: regular Extremities: No edema - Gastrointestinal General gastrointestinal: Present: distended - Integumentary Integumentary: warm, dry
[2018-05-22] MEDS: COLACE PO SCH ×2 (17:30→22:22)
[2018-05-22] MEDS: ATIVAN IV PRN (17:38)
[2018-05-23] MEDS: D5NS 1,000 ML IV SCH (03:23)
[2018-05-23] MEDS: DILAUDID IV PRN ×4 (03:25→14:06)
[2018-05-23 08:10] VITALS: BP 131/92
[2018-05-23] MEDS: COLACE PO SCH (09:37)
[2018-05-23] MEDS: LOVENOX SUB-Q SCH ×2 (09:37→10:48)
[2018-05-23] MEDS: SODIUM CHLORIDE FLUSH SYRINGE 10 ML IV SCH (09:38)
--- NOTE | 2018-05-23 09:51 | Hem/Onc Progress Note ---
Assessment and Plan For possible discharge to hospice. I will see him in my office for palliative chemotherapy. Patient's family members are aware of the plan. Nurse aware of the plan. Subjective Date of service: 05/23/18 Interval history: Patient weak. Tolerating some food as per nurse. Had a loose bowel movement today Objective - Constitutional Vitals: Last Vital Signs Temp 98.7 F 05/23/18 07:33 Pulse 120 H 05/23/18 07:33 Resp 18 05/23/18 07:33 BP 131/92 05/23/18 07:33 Pulse Ox 75 L 05/23/18 07:33 General appearance: cachectic, disheveled Performance status: 3-limited selfcare - Cardiovascular Rhythm: regular Extremities: No edema - Gastrointestinal General gastrointestinal: Present: soft (postop)
[2018-05-23] MEDS: VALIUM PO SCH (14:05)
--- NOTE | 2018-05-25 11:44 | Discharge Summary ---
Providers - Providers Date of Admission: 05/04/18 14:03 Attending physician: MARNIE OGLESBY MD 05/04/18 17:51 Consult to Physician [CONS] Routine Comment: Consulting Provider: KINZA YOO Physician Instructions: Reason For Exam: lymphoma 05/05/18 11:49 Consult to Physician [CONS] Routine Comment: Consulting Provider: OLEG RICH Physician Instructions: Reason For Exam: colon mass 05/10/18 11:22 Consult to Physician [CONS] Routine Comment: Consulting Provider: ROWENA JONES Physician Instructions: Reason For Exam: colon cancer 05/16/18 08:37 Consult to Physician [CONS] Routine Comment: Consulting Provider: HALLIE ROSENTHAL Physician Instructions: Reason For Exam: severe stenosis celiac axis Primary care physician: DOUGH PUNCHER Hospitalization Condition: Stable Disposition: DC-50 TO HOSPICE (HOME) Exam - Constitutional Vitals: Temp Pulse Resp BP Pulse Ox 98.7 F 120 H 18 131/92 75 L 05/23/18 07:33 05/23/18 07:33 05/23/18 07:33 05/23/18 07:33 05/23/18 07:33 Plan Follow up with: ROWENA JONES DO [Staff Physician] - 7 Days PRIMARY CARE, [Primary Care Provider] - 3-5 Days Prescriptions: [id number] [Duragesic 75mcg] 2 each TD Q72H #20 [id number]
== END 2018-05-23 15:15 | disposition hospice, home (50) | DRG 330 ==
LOC: ED 10:57 → 3A 14:03 → 3B-SURG 05-12 20:13
PROVIDERS: ADMIT Internal Medicine; ATTEND Internal Medicine
PROC: 0DBK8ZX Excision of Ascending Colon, Via Natural or Artificial Opening Endoscopic, Diagnostic (ICD-10-PCS; 2018-05-06)
PROC: 0DTF4ZZ Resection of Right Large Intestine, Percutaneous Endoscopic Approach (ICD-10-PCS; principal; 2018-05-12)
DX: C18.9 Malignant neoplasm of colon, unspecified (principal); J84.9 Interstitial pulmonary disease, unspecified; C85.90 Non-Hodgkin lymphoma, unspecified, unspecified site; F12.90 Cannabis use, unspecified, uncomplicated; R59.1 Generalized enlarged lymph nodes; E11.9 Type 2 diabetes mellitus without complications; M54.9 Dorsalgia, unspecified; F17.210 Nicotine dependence, cigarettes, uncomplicated; Z79.899 Other long term (current) drug therapy; Z79.2 Long term (current) use of antibiotics; Z80.0 Family history of malignant neoplasm of digestive organs; Z88.8 Allergy status to other drugs, medicaments and biological substances
CPT/HCPCS: 36415; 64450; 71045; 71275; 72157; 72158; 74019; 74174; 74177; 78452; 80048; 80053; 80307; 81001; 82164; 82378; 82550; 82553; 82962; 83036; 83690; 83735; 83880; 84100; 84484; 85007; 85025; 85027; 85379; 85610; 85730; 86850; 86900; 86901; 88305; 88309; 93005; 93010; 93017; 94760; 96361; 96374; 96375; 96376; A9502; A9577; C9113; J0690; J0735; J1100; J1170; J1644; J1650; J1885; J1956; J2060; J2250; J2270; J2370; J2405; J2704; J2710; J2785; J3010; J7030; J7042; J7120; Q9967